=== PATIENT | male | born 1950 | race Caucasian/White ===

== ENCOUNTER 2016-11-29 16:29 | Emergency (ER) | payer MEDICARE ==
[~2016-11-29 16:29] MED LIST: GLIM4TAB PO; GLUC1000 PO; INVO300T PO; MAGN500C PO; METF500T PO; SMZ-800T PO
--- NOTE | 2016-11-29 17:14 | REP ---
Clinical: Shortness of breath . Comparison: 11/16/2016 . Technique: PA and lateral. Findings: The mediastinum and cardiac silhouette are normal. The lung hobbs are clear and without acute consolidation, effusion, or pneumothorax. The skeletal structures are intact and normal. Impression: 1. No acute cardiopulmonary process. Signed by Lazarus Orosco MD 11/29/2016 05:06 P
[2016-11-29 17:42] LABS: BASO % 0.6 % (0.0-1.0); EOS # 0.1 K/mm3 (0.0-0.50); EOS % 2.2 % (0.0-3.0); LARGE UNSTAINED CELL # 0.1 K/mm3 (0.0-0.4); LARGE UNSTAINED CELL % 1.3 % (0.0-4.0); LYMPH # 0.8 K/mm3 (1.5-4.5); LYMPH % 15.7 % (24.0-44.0); MEAN CORPUSCULAR HEMOGLOBIN 35.4 pg (27.0-33.0); MEAN CORPUSCULAR HGB CONC 33.7 g/dl (32.0-36.5); MEAN CORPUSCULAR VOLUME 104.9 fl (80.0-96.0); MONO # 0.3 K/mm3 (0.0-0.8); MONO % 4.9 % (0.0-5.0); NEUTROPHILS # 3.8 K/mm3 (1.8-7.7); NEUTROPHILS % 75.3 % (36.0-66.0); PLATELET COUNT, AUTOMATED 150 k/mm3 (150-450); RED CELL DISTRIBUTION WIDTH 12.7 % (11.5-14.5)
[2016-11-29 18:00] LABS: ALBUMIN 3.3 GM/DL (3.2-5.2); ALBUMIN/GLOBULIN RATIO 0.87 (1.00-1.93); ALKALINE PHOSPHATASE 151 U/L (45-117); ALT/SGPT 37 U/L (12-78); ANION GAP 10 MEQ/L (8-16); AST/SGOT 46 U/L (15-37); BILIRUBIN,DIRECT 1.1 MG/DL (0.0-0.2); BILIRUBIN,TOTAL 1.6 MG/DL (0.2-1.0); BLOOD UREA NITROGEN 4 MG/DL (7-18); CALCIUM LEVEL 8.8 MG/DL (8.8-10.2); CARBON DIOXIDE LEVEL 27 MEQ/L (21-32); CHLORIDE LEVEL 104 MEQ/L (98-107); CREATININE FOR GFR 0.89 MG/DL (0.70-1.30); GLOMERULAR FILTRATION RATE > 60.0 (>49); GLUCOSE, FASTING 157 MG/DL (80-110); POTASSIUM SERUM 4.1 MEQ/L (3.5-5.1); SODIUM LEVEL 141 MEQ/L (136-145); TOTAL PROTEIN 7.1 GM/DL (6.4-8.2)
[2016-11-29] MEDS ORDERED: ACETAMINOPHEN 325 MG TAB As Ordered ONE (18:25)
[2016-11-29] MEDS ORDERED: ONDANSETRON 4MG/2ML VIAL (J2405) As Ordered ONE (19:08)
[2016-11-29] MEDS ORDERED: GASTROGRAFIN SOLUTION 30ML (Q9963) As Ordered ONE (19:08)
[2016-11-29] MEDS ORDERED: ISOVUE-370 76% 100ML VIAL (Q9967) As Ordered ONE (20:18)
--- NOTE | 2016-11-29 21:18 | REP ---
Clinical: Periumbilical pain. Technique: Axial contrast enhanced images from the lung bases to the pubic symphysis using oral and 100 ml Isovue 370 intravenous contrast material with coronal and sagittal re-formations. Comparison: None. Findings: 3.7 cm fat containing periumbilical hernia is identified and possibly related to patient's symptoms. Fatty infiltration to the liver is appreciated without focal hepatic lesion. Splenomegaly cannot be excluded. Gallbladder demonstrates cholelithiasis without CT evidence for acute cholecystitis. The pancreas demonstrates 18 mm simple appearing cyst in the distal body/tail region. Bilateral adrenal glands and kidneys are relatively normal. Mild symmetric chronic perinephric stranding is suggested without hydroureteronephrosis or nephrolithiasis. The enteric system demonstrates diverticulosis without CT evidence for acute diverticulitis and no evidence for bowel obstruction or acute inflammatory process. Normal terminal ileum and appendix identified in the right lower quadrant. Pelvis demonstrates bladder wall thickening and mildly prominent prostate gland. No pelvic fluid/ascites. No adenopathy. No free air. Mild atherosclerotic changes of the aorta and branch vessels without aneurysm or dissection. Musculoskeletal structures demonstrate age-related degenerative changes without focal osseous abnormality. Lung bases clear. Visualized heart and pericardium normal. Impression: 1. 3.7 cm fat containing periumbilical hernia with mild stranding possibly related to patient's symptoms. 2. Fatty infiltration to the liver with splenomegaly and possible cirrhosis. 3. Cholelithiasis without CT evidence for acute cholecystitis. 4. 1.8 cm simple appearing pancreatic cyst likely chronic and benign. Signed by Lazarus Orosco MD 11/29/2016 09:09 P
[2016-11-30] MEDS ORDERED: ACETAMINOPHEN 325 MG TAB As Ordered ONE (00:10)
[2016-11-30] MEDS ORDERED: KETOROLAC 30 MG/ML VIAL (J1885) As Ordered ONE (00:10)
--- NOTE | 2016-11-30 00:59 | EDDOCDS ---
Physician Documentation [facility] Name: Romie Buchanan Age: 66 yrs Sex: Male : 1950 Arrival Date: 11/29/2016 Time: 16:29 Bed 12 Private MD: Disposition: 11/30/16 00:26 Discharged to Home/Self Care. Impression: Abdominal and pelvic pain - resolved. - Condition is Stable. - Discharge Instructions: Abdominal Pain, Adult. - Medication Reconciliation, Local Pharmacy Hours form. - Follow up: Private Physician; When: 10 - 14 days; Reason: Continuance of care. - Problem is an acute exacerbation. - Symptoms have improved. - Notes: YOUR BLOOD WORK AND CT SCAN DID NOT SHOW ANY REASON FOR YOUR ABDOMINAL/CHEST PAIN. FOLLOW UP WITH YOUR PRIMARY CARE DOCTOR IN [place]. Historical: - Allergies: PENICILLINS; - Home Meds: 1. Invokana 300 mg oral tab 1 tab once daily multiple unopened sample bottles 2. Metformin Oral Unknown 2 times per day dose not know dosage, is not with his medications, states these are his meds from [facility]. 3. magnesium 500mg pt unsure if he take this medication 4. Unknown - PMHx: Diabetes - NIDDM: controlled; - PSHx: unknown; - Social history: Smoking status: Patient states former smoker of tobacco. No barriers to communication noted, The patient speaks fluent Czech. - Family history: Not pertinent. - : The pt / caregiver states he / she is not on anticoagulants. Home medication list is obtained from the patient, pt's pharmacy is the [facility] in [facility]. - Exposure Risk Screening:: None identified. Vital Signs: 11/29 16:42 Resp 18; Weight 99.79 kg / 220 lbs; Height 6 ft. 1 in. (185.42 cm); Pain 0/10; ms18 17:18 BP 139 / 85; Pulse 108; Resp 16; Temp 97.3; jmk 18:29 BP 160 / 91; Pulse 99; Resp 18; Pulse Ox 99% on R/A; jmk 19:27 BP 156 / 79 (auto/); kas2 19:29 Pulse Ox 100% ; kas2 19:54 BP 131 / 75 (auto/); kas2 19:54 Pulse 88 MON; Pulse Ox 100% ; kas2 20:24 BP 140 / 80 (auto/); kas2 20:24 Pulse 86 MON; Pulse Ox 99% ; kas2 20:55 BP 166 / 90 (auto/); kas2 20:55 Pulse Ox 98% ; kas2 20:59 Resp 18; Temp 97.6(O); Pain 0/10; kas2 21:10 BP 147 / 90 (auto/); kas2 21:10 Pulse 90 MON; Pulse Ox 99% ; kas2 21:25 BP 120 / 71 (auto/); kas2 21:25 Pulse 90 MON; Pulse Ox 98% ; kas2 21:40 BP 129 / 79 (auto/); kas2 21:40 Pulse 80 MON; Pulse Ox 98% ; kas2 21:55 BP 112 / 68 (auto/); kas2 21:55 Pulse 90 MON; Pulse Ox 96% ; kas2 22:10 BP 122 / 73 (auto/); kas2 22:10 Pulse 84 MON; Pulse Ox 96% ; kas2 22:25 BP 138 / 93 (auto/); kas2 22:25 Pulse 100 MON; Pulse Ox 100% ; kas2 22:40 BP 134 / 87 (auto/); kas2 22:40 Pulse 90 MON; Pulse Ox 98% ; kas2 22:55 BP 122 / 76 (auto/); kas2 22:55 Pulse 88 MON; Pulse Ox 99% ; kas2 23:11 BP 158 / 88 (auto/); kas2 23:11 Pulse 124 MON; kas2 23:25 BP 125 / 80 (auto/); kas2 23:25 Pulse 88 MON; Pulse Ox 97% ; kas2 23:40 BP 132 / 83 (auto/); kas2 23:40 Pulse 88 MON; Pulse Ox 97% ; kas2 23:55 BP 144 / 88 (auto/); kas2 23:55 Pulse 84 MON; Pulse Ox 99% ; kas2 11/30 00:10 BP 150 / 84 (auto/); kas2 00:10 Pulse 94 MON; Pulse Ox 98% ; kas2 00:35 Temp 96.4(O); jmv 00:40 BP 148 / 78; Pulse 87; Resp 18; Temp 97.8(O); Pulse Ox 99% on R/A; Pain 0/10; kas2 11/29 16:42 Body Mass Index 29.03 (99.79 kg, 185.42 cm) ms18 MDM: 11/29 16:40 IV Saline Lock ordered. br1 16:41 CBC with Diff Ordered. EDMS 16:41 BMP Ordered. EDMS 16:41 Liver Profile Ordered. EDMS 16:41 Lipase Ordered. EDMS 16:41 Troponin Ordered. EDMS 16:41 ECG WITH READING ER PHYS+CARDIAG ordered. EDMS 16:42 Chest, 2 View (pa\E\lat) Ordered. EDMS 18:24 Acetaminophen Tablet 650 mg PO once ordered. jmk 18:51 CBC with Diff Reviewed. br1 18:51 BMP Reviewed. br1 18:51 Liver Profile Reviewed. br1 18:51 Lipase Reviewed. br1 18:51 Troponin Reviewed. br1 18:51 Chest, 2 View (pa\E\lat) Reviewed. br1 18:53 Repeat EKG (put time details section) ordered. br1 18:53 Redraw CIP &Troponin (put time in details section) ordered. br1 18:53 Ondansetron 4 mg IVP once ordered. br1 18:53 CT ABD & PELVIS: IV and Oral Contrast Ordered. EDMS 18:53 NS 0.9% 1000 ml IV at 150 mL/hr continuous ordered. br1 19:00 Financial registration complete. zo 19:08 Redraw CIP &Troponin (put time in details section) complete. tmm1 19:08 Repeat EKG (put time details section) complete. tmm1 19:09 CARDIAC MARKER PANEL Ordered. EDMS 19:10 ECG WITH READING ER PHYS ordered. EDMS 19:26 [facility] Payment Agreement was scanned into [employer] and attached to record. zo 19:29 Diatrizoate Meglumine & Sodium Liquid 10 ml PO once; mix in 290cc of water - administer kc3 at 1945 ordered. 19:29 Diatrizoate Meglumine & Sodium Liquid 10 ml PO once; mix in 290cc of water - administer kc3 at 1945 ordered. 23:58 CARDIAC MARKER PANEL Reviewed. mm11 23:58 CT ABD & PELVIS: IV and Oral Contrast Reviewed. mm11 11/30 00:08 Acetaminophen Tablet 650 mg PO once ordered. mm11 00:08 ketorolac 30 mg IVP once ordered. mm11 Administered Medications: 11/29 18:35 Drug: Acetaminophen 650 mg [acetaminophen 325 mg tablet (2 tabs)] Route: PO; jmk 19:15 Drug: Diatrizoate Meglumine & Sodium 10 ml [diatrizoate meglumine and diat.sodium 66 kc3 %-10 % oral solution (10 mL)] Route: PO; 19:28 Drug: Ondansetron 4 mg [ondansetron HCl 2 mg/mL intravenous solution (2 mL)] Route: kc3 IVP; Site: left antecubital; 19:28 Drug: NS 0.9% 1000 ml [sodium chloride 0.9 % intravenous solution] Route: IV; Rate: 150 kc3 mL/hr; Site: left antecubital; 11/30 00:42 Follow up: IV Status: Completed infusion; IV Intake: 1000ml kas2 11/29 20:19 Drug: Diatrizoate Meglumine & Sodium 10 ml [diatrizoate meglumine and diat.sodium 66 kas2 %-10 % oral solution (10 mL)] Route: PO; 11/30 00:15 Drug: Acetaminophen 650 mg [acetaminophen 325 mg tablet (2 tabs)] Route: PO; sls1 00:15 Drug: ketorolac 30 mg [ketorolac 30 mg/mL (1 mL) injection solution (1 mL)] Route: IVP; sls1 Site: left antecubital; Signatures: Dispatcher [employer] EDMarcus Cheney,[place] RN Geraldine Wong Matthew, DO DO mm11 Darion Contreras MD MD br1 McLear, [place], COTTON PRESSER COTTON PRESSER tmm1 Lori Phillips RN RN [id number] Kelley De La Cruz RN RN kc3 Flora Phillips RN RN kas2 Kasie Kathleen RN sls1 The chart was reviewed and I authenticate all verbal orders and agree with the evaluation and treatment provided.Attachments: 11/29 19:26 [facility] Payment Agreement zo [id number]
--- NOTE | 2016-11-30 00:59 | EDDOCDS ---
Nurse's Notes [facility] Name: Romie Buchanan Age: 66 yrs Sex: Male : 1950 Arrival Date: 11/29/2016 Time: 16:29 Bed 12 Private MD: Diagnosis: Abdominal and pelvic pain-resolved Presentation: 11/29 16:34 Presenting complaint: EMS states: that pt is c/o headache and nausea. Pt was seen here ms18 last week for the same. Adult Sepsis Screening: The patient does not have new or worsening altered mentation. Patient's respiratory rate is less than 22. Systolic blood pressure is greater than 100. Patient has a qSOFA score of 0- Negative Sepsis Screen. Suicide/Homicide risk assessment- the patient denies having any suicidal and/or homicidal ideations and does not present with any other emotional, behavioral or mental health complaints. Status: Patient is not a director of rehabilitative services or dependent. Transition of care: patient was not received from another setting of care. Care prior to arrival: Glucose check. 187. 16:34 Acuity: MARCELINO Level 3 ms18 16:34 Method Of Arrival: Ambulance ms18 Triage Assessment: 16:40 General: Appears in no apparent distress, comfortable, Behavior is appropriate for age, ms18 cooperative. Pain: Denies pain. Location: head. HIV screening NA for this visit Offered previously. Neurological: Level of Consciousness is awake, alert, obeys commands, Oriented to person, place, time. Respiratory: No deficits noted. Derm: Skin is pink, warm & dry. Historical: - Allergies: PENICILLINS; - Home Meds: 1. Invokana 300 mg oral tab 1 tab once daily multiple unopened sample bottles 2. Metformin Oral Unknown 2 times per day dose not know dosage, is not with his medications, states these are his meds from [facility]. 3. magnesium 500mg pt unsure if he take this medication 4. Unknown - PMHx: Diabetes - NIDDM: controlled; - PSHx: unknown; - Social history: Smoking status: Patient states former smoker of tobacco. No barriers to communication noted, The patient speaks fluent Bangladeshi. - Family history: Not pertinent. - : The pt / caregiver states he / she is not on anticoagulants. Home medication list is obtained from the patient, pt's pharmacy is the [facility] in [facility]. - Exposure Risk Screening:: None identified. Screenin:21 Screening information is obtained from the patient. Fall risk: No risks identified. donnak Assistance ADL's: requires no assistance with activities of daily living. Abuse/DV Screen: The patient / caregiver reports he/she is: not in a situation that causes fear, pain or injury. Nutritional screening: No deficits noted. Advance Directives: Currently, there is no health care proxy. There is no active DNR order. There is no living will. There is no Power of Accounting Manager Cpa. Advance directive information has not previously been placed in an [facility] medical record. home support is adequate. Assessment: 17:18 General: Appears skin warm and dry color satisfactory. Moist pink oral mucosa. ODD jmk affect/ poor historian. chest CTA. No resp distress. abd unremarkable. Pt is alert and oriented x 3. described pain about forehead. Is neurologically intact. Neurological: Level of Consciousness is awake, alert, Oriented to person, place, time, Electronic Assembler Group Leader are equal bilaterally. Respiratory: No deficits noted. Airway is patent Respiratory effort is even, unlabored, Respiratory pattern is regular. GI: Abdomen is flat, non- distended Bowel sounds present X 4 quads. 18:29 General: Appears overall presentation unchanged. medicated for headache as per order.. jmk 19:30 General: Verbal report given by Kelley De La Cruz RN. Assumed care of patient at this time.. kas2 19:45 General: Appears in no apparent distress, comfortable, well nourished, well groomed, kas2 Behavior is appropriate for age, cooperative. Pain: Denies pain. Neurological: Level of Consciousness is awake, alert, Oriented to person, place, time, Electronic Assembler Group Leader are equal bilaterally Pupils are PERRLA. Cardiovascular: Capillary refill < 3 seconds Heart tones S1 S2 present Rhythm is sinus rhythm No ectopy. Respiratory: Airway is patent Respiratory effort is even, unlabored, Respiratory pattern is regular, symmetrical, Breath sounds are clear bilaterally. GI: Abdomen is flat, non- distended Bowel sounds present X 4 quads. Derm: Skin is intact, is healthy with good turgor, Skin is dry, Skin is pink, warm & dry. Skin temperature is warm. 20:45 General: Patient gone to CT scan via stretcher.. kas2 20:58 General: Patient back from CT scan via stretcher with RN. Resettled patient in bed. kas2 Denies pain or discomfort at this time. Appears comfortable. No apparent distress. Call dai within reach. Will continue to monitor.. 21:53 General: Appears in no apparent distress, comfortable, well nourished, well groomed, kas2 Behavior is appropriate for age, cooperative. Pain: Denies pain. Neurological: Level of Consciousness is awake, alert, Oriented to person, place, time. Respiratory: Airway is patent Respiratory effort is even, unlabored, Respiratory pattern is regular, symmetrical. Derm: Skin is intact, is healthy with good turgor, Skin is dry, Skin is pink, warm & dry. Skin temperature is warm. 23:06 General: Patient laying in bed watching TV. Appears comfortable. No apparent distress kas2 noted. Denies pain or discomfort at this time. Call dai within reach. Will continue to monitor.. 11/30 00:17 General: Patient continues to watch TV at this time. No apparent distress noted. Denies kas2 pain or discomfort at this time. Call dai within reach. Will continue to monitor.. Vital Signs: 11/29 16:42 Resp 18; Weight 99.79 kg; Height 6 ft. 1 in. (185.42 cm); Pain 0/10; ms18 17:18 BP 139 / 85; Pulse 108; Resp 16; Temp 97.3; jmk 18:29 BP 160 / 91; Pulse 99; Resp 18; Pulse Ox 99% on R/A; jmk 19:27 BP 156 / 79 (auto/); kas2 19:29 Pulse Ox 100% ; kas2 19:54 BP 131 / 75 (auto/); kas2 19:54 Pulse 88 MON; Pulse Ox 100% ; kas2 20:24 BP 140 / 80 (auto/); kas2 20:24 Pulse 86 MON; Pulse Ox 99% ; kas2 20:55 BP 166 / 90 (auto/); kas2 20:55 Pulse Ox 98% ; kas2 20:59 Resp 18; Temp 97.6(O); Pain 0/10; kas2 21:10 BP 147 / 90 (auto/); kas2 21:10 Pulse 90 MON; Pulse Ox 99% ; kas2 21:25 BP 120 / 71 (auto/); kas2 21:25 Pulse 90 MON; Pulse Ox 98% ; kas2 21:40 BP 129 / 79 (auto/); kas2 21:40 Pulse 80 MON; Pulse Ox 98% ; kas2 21:55 BP 112 / 68 (auto/); kas2 21:55 Pulse 90 MON; Pulse Ox 96% ; kas2 22:10 BP 122 / 73 (auto/); kas2 22:10 Pulse 84 MON; Pulse Ox 96% ; kas2 22:25 BP 138 / 93 (auto/); kas2 22:25 Pulse 100 MON; Pulse Ox 100% ; kas2 22:40 BP 134 / 87 (auto/); kas2 22:40 Pulse 90 MON; Pulse Ox 98% ; kas2 22:55 BP 122 / 76 (auto/); kas2 22:55 Pulse 88 MON; Pulse Ox 99% ; kas2 23:11 BP 158 / 88 (auto/); kas2 23:11 Pulse 124 MON; kas2 23:25 BP 125 / 80 (auto/); kas2 23:25 Pulse 88 MON; Pulse Ox 97% ; kas2 23:40 BP 132 / 83 (auto/); kas2 23:40 Pulse 88 MON; Pulse Ox 97% ; kas2 23:55 BP 144 / 88 (auto/); kas2 23:55 Pulse 84 MON; Pulse Ox 99% ; kas2 01 00:10 BP 150 / 84 (auto/); kas2 00:10 Pulse 94 MON; Pulse Ox 98% ; kas2 00:35 Temp 96.4(O); jmv 00:40 BP 148 / 78; Pulse 87; Resp 18; Temp 97.8(O); Pulse Ox 99% on R/A; Pain 0/10; kas2 11/29 16:42 Body Mass Index 29.03 (99.79 kg, 185.42 cm) ms18 Vitals: 11/29 16:40 Log In Time N/A - ambulance arrival. ms18 ED Course: 16:30 Patient visited by Yumiko Ureña, Block Out Machine Operator. deg 16:30 Anayeli Marinelli, [place] is Primary Nurse. deg 16:30 Patient moved to Waiting deg 16:30 Patient moved to I deg 16:32 Darion Contreras MD is Attending Physician. br1 16:34 Patient visited by Lori Phillips RN. ms18 16:36 Triage Initiated ms18 16:38 Patient visited by Darion Contreras MD. br1 17:18 Troponin Sent. jmk 17:18 Lipase Sent. jmk 17:18 Liver Profile Sent. jmk 17:18 BMP Sent. jmk 17:18 CBC with Diff Sent. jmk 17:21 Patient visited by Ginna Peterson PCA. rs6 17:21 EKG done. (by ED staff). Reviewed by Darion Contreras MD. rs6 17:21 Inserted saline lock: 20 gauge in left. jmk 17:43 Chest, 2 View (pa\E\lat) Returned. EDMS 18:00 Pt greeted and oriented to ED. Patient advised of names of staff involved in care, rs6 location of call dai, wait times and NPO status. Patient has correct armband on for positive identification. Placed in gown. Bed in low position. Call light in reach. Side rails up X 1. Cardiac monitoring not applicable on this patient. 18:00 Assisted with urinal. rs6 18:01 Patient visited by Ginna Peterson PCA. rs6 18:30 Patient visited by Marcus Klein,[place]. jmk 19:26 [facility] Payment Agreement was scanned into [employer] and attached to record. zo 19:27 Kelley De La Cruz RN is Primary Nurse. kc3 19:27 Flora Phillips RN is Primary Nurse. kc3 19:27 Patient moved to 12 kc3 19:28 Patient visited by Kelley De La Cruz,[place]. kc3 19:29 Attending Physician role handed off by Darion Contreras MD mm11 19:29 Ascencion Thompson DO is Attending Physician. mm11 19:31 Patient visited by Flora Phillips RN. kas2 20:17 Patient visited by Flora Phillips RN. kas2 20:28 Primary Nurse role handed off by Kelley De La Cruz,[place] ar3 20:28 Primary Nurse role handed off by Anayeli Marinelli RN ar3 20:59 Patient visited by Flora Phillips RN. kas2 21:41 Patient visited by Flora Phillips RN. kas2 21:53 Patient visited by Flora Phillips RN. kas2 21:59 CT ABD & PELVIS: IV and Oral Contrast Returned. EDMS 22:25 Patient visited by Flora Phillips RN. kas2 22:31 EKG done. (by ED staff). Reviewed by Ascencion Thompson DO. jmv 22:32 Patient visited by Case Gaffney PCA. jmv 22:37 CARDIAC MARKER PANEL Sent. jmv 23:08 Patient visited by Flora Phillips RN. kas2 23:14 Patient visited by Dede Brown. cmb 23:14 Assisted with urinal. cmb 23:47 Patient visited by Flora Phillips RN. kas2 11/30 00:15 Patient visited by Kasie Kathleen RN. sls1 00:19 Patient visited by Flora Phillips RN. kas2 00:36 Patient visited by Case Gaffney PCA. jmv 00:39 Patient visited by Flora Phillips RN. kas2 00:41 Patient visited by Flora Phillips RN. kas2 00:41 The patient / caregiver is instructed regarding the plan of care and ED course. kas2 00:41 Discontinued IV bleeding controlled, pressure dressing applied, No redness/swelling at [facility] site. No procedures done that require assistance. Administered Medications: 11/29 18:35 Drug: Acetaminophen 650 mg [acetaminophen 325 mg tablet (2 tabs)] Route: PO; [facility] 19:15 Drug: Diatrizoate Meglumine & Sodium 10 ml [diatrizoate meglumine and diat.sodium 66 kc3 %-10 % oral solution (10 mL)] Route: PO; 19:28 Drug: Ondansetron 4 mg [ondansetron HCl 2 mg/mL intravenous solution (2 mL)] Route: kc3 IVP; Site: left antecubital; 19:28 Drug: NS 0.9% 1000 ml [sodium chloride 0.9 % intravenous solution] Route: IV; Rate: 150 kc3 mL/hr; Site: left antecubital; 11/30 00:42 Follow up: IV Status: Completed infusion; IV Intake: 1000ml [facility] 11/29 20:19 Drug: Diatrizoate Meglumine & Sodium 10 ml [diatrizoate meglumine and diat.sodium 66 kas2 %-10 % oral solution (10 mL)] Route: PO; 11/30 00:15 Drug: Acetaminophen 650 mg [acetaminophen 325 mg tablet (2 tabs)] Route: PO; sls1 00:15 Drug: ketorolac 30 mg [ketorolac 30 mg/mL (1 mL) injection solution (1 mL)] Route: IVP; sls1 Site: left antecubital; Intake: 00:42 IV: 1000.00ml; Total: 1000.00ml. kas2 Output: 11/29 23:14 Urine: 250.00ml (Voided); Total: 250.00ml. cmb Order Results: Lab Order: CBC with Diff; SPEC'M 11/29/16 17:14 Test: WHITE BLOOD COUNT; Value: 5.0; Range: 4.0-10.0; Units: K/mm3; Status: F Test: RED BLOOD COUNT; Value: 4.03; Range: 4.30-6.10; Abnormal: Below low normal; Units: M/mm3; Status: F Test: HEMOGLOBIN; Value: 14.3; Range: 14.0-18.0; Units: g/dl; Status: F Test: HEMATOCRIT; Value: 42.3; Range: 42.0-52.0; Units: %; Status: F Test: MEAN CORPUSCULAR VOLUME; Value: 104.9; Range: 80.0-96.0; Abnormal: Above high normal; Units: fl; Status: F Test: MEAN CORPUSCULAR HEMOGLOBIN; Value: 35.4; Range: 27.0-33.0; Abnormal: Above high normal; Units: pg; Status: F Test: MEAN CORPUSCULAR HGB CONC; Value: 33.7; Range: 32.0-36.5; Units: g/dl; Status: F Test: RED CELL DISTRIBUTION WIDTH; Value: 12.7; Range: 11.5-14.5; Units: %; Status: F Test: PLATELET COUNT, AUTOMATED; Value: 150; Range: 150-450; Units: k/mm3; Status: F Test: NEUTROPHILS %; Value: 75.3; Range: 36.0-66.0; Abnormal: Above high normal; Units: %; Status: F Test: LYMPH %; Value: 15.7; Range: 24.0-44.0; Abnormal: Below low normal; Units: %; Status: F Test: MONO %; Value: 4.9; Range: 0.0-5.0; Units: %; Status: F Test: EOS %; Value: 2.2; Range: 0.0-3.0; Units: %; Status: F Test: BASO %; Value: 0.6; Range: 0.0-1.0; Units: %; Status: F Test: LARGE UNSTAINED CELL %; Value: 1.3; Range: 0.0-4.0; Units: %; Status: F Test: NEUTROPHILS #; Value: 3.8; Range: 1.8-7.7; Units: K/mm3; Status: F Test: LYMPH #; Value: 0.8; Range: 1.5-4.5; Abnormal: Below low normal; Units: K/mm3; Status: F Test: MONO #; Value: 0.3; Range: 0.0-0.8; Units: K/mm3; Status: F Test: EOS #; Value: 0.1; Range: 0.0-0.50; Units: K/mm3; Status: F Test: BASO #; Value: 0.0; Range: 0.0-0.2; Units: K/mm3; Status: F Test: LARGE UNSTAINED CELL #; Value: 0.1; Range: 0.0-0.4; Units: K/mm3; Status: F Lab Order: [facility]; SPEC'M 11/29/16 17:14 Test: GLUCOSE, FASTING; Value: 157; Range: 80-110; Abnormal: Above high normal; Units: MG/DL; Status: F Test: BLOOD UREA NITROGEN; Value: 4; Range: 7-18; Abnormal: Below low normal; Units: MG/DL; Status: F Test: CREATININE FOR GFR; Value: 0.89; Range: 0.70-1.30; Units: MG/DL; Status: F Test: GLOMERULAR FILTRATION RATE; Value: > 60.0; Range: >49; Status: F Test: SODIUM LEVEL; Value: 141; Range: 136-145; Units: MEQ/L; Status: F Test: POTASSIUM SERUM; Value: 4.1; Range: 3.5-5.1; Units: MEQ/L; Status: F Test: CHLORIDE LEVEL; Value: 104; Range: 98-107; Units: MEQ/L; Status: F Test: CARBON DIOXIDE LEVEL; Value: 27; Range: 21-32; Units: MEQ/L; Status: F Test: ANION GAP; Value: 10; Range: 8-16; Units: MEQ/L; Status: F Test: CALCIUM LEVEL; Value: 8.8; Range: 8.8-10.2; Units: MG/DL; Status: F Test Note: ; Units are mL/min/1.73 m2 Chronic Kidney Disease Staging per NKF: Stage I & II GFR >=60 Normal to Mildly Decreased Stage III GFR 30-59 Moderately Decreased Stage IV GFR 15-29 Severely Decreased Stage V GFR <15 Very Little GFR Left ESRD GFR <15 on CRIMINAL INVESTIGATIVE AGENT Lab Order: Liver Profile; SPEC'11/29/16 17:14 Test: AST/SGOT; Value: 46; Range: 15-37; Abnormal: Above high normal; Units: U/L; Status: F Test: ALT/SGPT; Value: 37; Range: 12-78; Units: U/L; Status: F Test: ALKALINE PHOSPHATASE; Value: 151; Range: 45-117; Abnormal: Above high normal; Units: U/L; Status: F Test: BILIRUBIN,TOTAL; Value: 1.6; Range: 0.2-1.0; Abnormal: Above high normal; Units: MG/DL; Status: F Test: BILIRUBIN,DIRECT; Value: 1.1; Range: 0.0-0.2; Abnormal: Above high normal; Units: MG/DL; Status: F Test: TOTAL PROTEIN; Value: 7.1; Range: 6.4-8.2; Units: GM/DL; Status: F Test: ALBUMIN; Value: 3.3; Range: 3.2-5.2; Units: GM/DL; Status: F Test: ALBUMIN/GLOBULIN RATIO; Value: 0.87; Range: 1.00-1.93; Abnormal: Below low normal; Status: F Lab Order: Lipase; SPEC'11/29/16 17:14 Test: LIPASE; Value: 144; Range: 73-393; Units: U/L; Status: F Lab Order: Troponin; SPEC11/29/16 17:14 Test: TROPONIN I; Value: < 0.02; Range: < 0.10; Units: NG/ML; Status: F Test Note: ; Troponin I Reference Interval for Scary Mommy LOCI: 99th Percentile= 0.00-0.045 ng/ml Risk Stratification: <= 0.10 ng/ml Decreased Risk for Adverse Clinical Events. 0.10-1.50 ng/ml Increased Risk for Adverse Clinical Events. Evaluation of additional criterion and/or repeat testing in 2-6 hours is suggested to rule out myocardial damage. >= 1.50 ng/ml Indicative of Myocardial Injury. Lab Order: CARDIAC MARKER PANEL; SPEC'M 11/29/16 22:36 Test: CPK CREATINE PHOSPHOKINASE; Value: 50; Range: 39-308; Units: U/L; Status: F Test: CK-MB VALUE MASS; Value: 2.0; Range: 0.0-3.6; Units: NG/ML; Status: F Test: MB/CK RELATIVE INDEX; Value: 4.00; Range: < OR =4; Status: F Test: TROPONIN I; Value: < 0.02; Range: < 0.10; Units: NG/ML; Status: F Test Note: ; DIAGNOSIS CRITERIA MMB ng/ml Relative Index (RI) NON-AMI < or = 5 N/A WISE ZONE > 5 < or = 4 AMI > 5 > 4 Radiology Order: Chest, 2 View (pa\E\lat) Test: Chest, 2 View (pa\E\lat) REASON FOR EXAMINATION: Shortness of Breath; Clinical: Shortness of breath .; ; Comparison: 11/16/2016 .; ; Technique: PA and lateral.; ; Findings:; The mediastinum and cardiac silhouette are normal. The lung hobbs are clear and; without acute consolidation, effusion, or pneumothorax. The skeletal structures; are intact and normal.; ; Impression:; 1. No acute cardiopulmonary process.; ; ; Signed by; Lazarus Orosco MD 11/29/2016 05:06 P; Radiology Order: CT ABD & PELVIS: IV and Oral Contrast Test: CT ABD & PELVIS: IV and Oral Contrast REASON FOR EXAMINATION: Abdomen Pain; Clinical: Periumbilical pain.; ; Technique: Axial contrast enhanced images from the lung bases to the pubic; symphysis using oral and 100 ml Isovue 370 intravenous contrast material with; coronal and sagittal re-formations.; ; Comparison: None.; ; Findings:; 3.7 cm fat containing periumbilical hernia is identified and possibly related to; patient's symptoms.; ; Fatty infiltration to the liver is appreciated without focal hepatic lesion.; Splenomegaly cannot be excluded. Gallbladder demonstrates cholelithiasis without; CT evidence for acute cholecystitis. The pancreas demonstrates 18 mm simple; appearing cyst in the distal body/tail region. Bilateral adrenal glands and; kidneys are relatively normal. Mild symmetric chronic perinephric stranding is; suggested without hydroureteronephrosis or nephrolithiasis. The enteric system; demonstrates diverticulosis without CT evidence for acute diverticulitis and no; evidence for bowel obstruction or acute inflammatory process. Normal terminal; ileum and appendix identified in the right lower quadrant. Pelvis demonstrates; bladder wall thickening and mildly prominent prostate gland. No pelvic; fluid/ascites. No adenopathy. No free air. Mild atherosclerotic changes of the; aorta and branch vessels without aneurysm or dissection. Musculoskeletal; structures demonstrate age-related degenerative changes without focal osseous; abnormality. Lung bases clear. Visualized heart and pericardium normal.; ; Impression:; 1. 3.7 cm fat containing periumbilical hernia with mild stranding possibly; related to patient's symptoms.; 2. Fatty infiltration to the liver with splenomegaly and possible cirrhosis.; 3. Cholelithiasis without CT evidence for acute cholecystitis.; 4. 1.8 cm simple appearing pancreatic cyst likely chronic and benign.; ; ; Signed by; Lazarus Orosco MD 11/29/2016 09:09 P; Outcome: 11/30 00:26 Discharge ordered by Provider. mm11 00:41 Discharge Assessment: patient administered narcotics - no. The following High Risk kas2 Discharge criteria are identified: None. Discharged to home ambulatory. Condition: good Condition: stable Condition: improved. CT Study completed. Property :Personal belongings accompany Pt. 00:57 Patient left the ED. kas2 Signatures: Dispatcher [employer] EDMS Yumiko Ureña, Block Out Machine Operator Unit deg Marcus Klein,RN RN Geraldine Wong Matthew, DO DO mm11 Darion Contreras MD MD br1 Radha Rizo, MASH FILTER PRESS OPERATOR MASH FILTER PRESS OPERATOR ar3 Kasie Kathleen, RN RN sls1 Dede Brown Mallory,RN RN ms18 Ginna Peterson, MASH FILTER PRESS OPERATOR MASH FILTER PRESS OPERATOR rs6 Kelley De La Cruz,RN RN kc3 Flora Phillips RN RN kas2 Case Gaffney, MASH FILTER PRESS OPERATOR MASH FILTER PRESS OPERATOR jmv MTDD
--- NOTE | 2016-11-30 19:51 | ECGEPIP ---
Stationary ECG Study [facility] - ED Test Date: 2016-11-29 Pat Name: JIMI KEY Department: Room: - Gender: M Mast Maker: : 1950 Requested By: DAI Marrufo Order Number: [id number] Reading MD: Socorro Basilio Measurements Intervals [place] Rate: 95 P: 64 IN: 142 QRS: 41 QRSD: 88 T: 57 QT: 345 QTc: 435 Interpretive Statements SINUS RHYTHM LOW QRS VOLTAGE IN EXTREMITY LEADS PRWP NSTTW ABNORMALITY INCREASED RATE 11/16/16 Electronically Signed On 11-30-2016 19:51:14 EST by Socorro Basilio
--- NOTE | 2016-11-30 19:52 | ECGEPIP ---
Stationary ECG Study [facility] - ED Test Date: 2016-11-29 Pat Name: JIMI KEY Department: Room: - Gender: M Receiver Bulk System: brenden : 1950 Requested By: DAI Marrufo Order Number: [id number] Reading MD: Socorro Basilio Measurements Intervals [place] Rate: 87 P: 68 ID: 160 QRS: 11 QRSD: 85 T: 23 QT: 356 QTc: 431 Interpretive Statements SINUS RHYTHM LOW QRS VOLTAGE IN EXTREMITY LEADS NSTTW ABNORMALITY SIMILAR 11/29/16 Electronically Signed On 11-30-2016 19:52:39 EST by Socorro Basilio
--- NOTE | 2016-12-02 01:59 | EDDOCDS ---
Physician Documentation [facility] Name: Romie Buchanan Age: 66 yrs Sex: Male : 1950 Arrival Date: 11/29/2016 Time: 16:29 Bed 12 Private MD: Disposition: 11/30/16 00:26 Discharged to Home/Self Care. Impression: Abdominal and pelvic pain - resolved. - Condition is Stable. - Discharge Instructions: Abdominal Pain, Adult. - Medication Reconciliation, Local Pharmacy Hours form. - Follow up: Private Physician; When: 10 - 14 days; Reason: Continuance of care. - Problem is an acute exacerbation. - Symptoms have improved. - Notes: YOUR BLOOD WORK AND CT SCAN DID NOT SHOW ANY REASON FOR YOUR ABDOMINAL/CHEST PAIN. FOLLOW UP WITH YOUR PRIMARY CARE DOCTOR IN [place]. Historical: - Allergies: PENICILLINS; - Home Meds: 1. Invokana 300 mg oral tab 1 tab once daily multiple unopened sample bottles 2. Metformin Oral Unknown 2 times per day dose not know dosage, is not with his medications, states these are his meds from [facility]. 3. magnesium 500mg pt unsure if he take this medication 4. Unknown - PMHx: Diabetes - NIDDM: controlled; - PSHx: unknown; - Social history: Smoking status: Patient states former smoker of tobacco. No barriers to communication noted, The patient speaks fluent Welsh. - Family history: Not pertinent. - : The pt / caregiver states he / she is not on anticoagulants. Home medication list is obtained from the patient, pt's pharmacy is the [facility] in [facility]. - Exposure Risk Screening:: None identified. Vital Signs: 11/29 16:42 Resp 18; Weight 99.79 kg / 220 lbs; Height 6 ft. 1 in. (185.42 cm); Pain 0/10; ms18 17:18 BP 139 / 85; Pulse 108; Resp 16; Temp 97.3; jmk 18:29 BP 160 / 91; Pulse 99; Resp 18; Pulse Ox 99% on R/A; jmk 19:27 BP 156 / 79 (auto/); kas2 19:29 Pulse Ox 100% ; kas2 19:54 BP 131 / 75 (auto/); kas2 19:54 Pulse 88 MON; Pulse Ox 100% ; kas2 20:24 BP 140 / 80 (auto/); kas2 20:24 Pulse 86 MON; Pulse Ox 99% ; kas2 20:55 BP 166 / 90 (auto/); kas2 20:55 Pulse Ox 98% ; kas2 20:59 Resp 18; Temp 97.6(O); Pain 0/10; kas2 21:10 BP 147 / 90 (auto/); kas2 21:10 Pulse 90 MON; Pulse Ox 99% ; kas2 21:25 BP 120 / 71 (auto/); kas2 21:25 Pulse 90 MON; Pulse Ox 98% ; kas2 21:40 BP 129 / 79 (auto/); kas2 21:40 Pulse 80 MON; Pulse Ox 98% ; kas2 21:55 BP 112 / 68 (auto/); kas2 21:55 Pulse 90 MON; Pulse Ox 96% ; kas2 22:10 BP 122 / 73 (auto/); kas2 22:10 Pulse 84 MON; Pulse Ox 96% ; kas2 22:25 BP 138 / 93 (auto/); kas2 22:25 Pulse 100 MON; Pulse Ox 100% ; kas2 22:40 BP 134 / 87 (auto/); kas2 22:40 Pulse 90 MON; Pulse Ox 98% ; kas2 22:55 BP 122 / 76 (auto/); kas2 22:55 Pulse 88 MON; Pulse Ox 99% ; kas2 23:11 BP 158 / 88 (auto/); kas2 23:11 Pulse 124 MON; kas2 23:25 BP 125 / 80 (auto/); kas2 23:25 Pulse 88 MON; Pulse Ox 97% ; kas2 23:40 BP 132 / 83 (auto/); kas2 23:40 Pulse 88 MON; Pulse Ox 97% ; kas2 23:55 BP 144 / 88 (auto/); kas2 23:55 Pulse 84 MON; Pulse Ox 99% ; kas2 11/30 00:10 BP 150 / 84 (auto/); kas2 00:10 Pulse 94 MON; Pulse Ox 98% ; kas2 00:35 Temp 96.4(O); jmv 00:40 BP 148 / 78; Pulse 87; Resp 18; Temp 97.8(O); Pulse Ox 99% on R/A; Pain 0/10; kas2 11/29 16:42 Body Mass Index 29.03 (99.79 kg, 185.42 cm) ms18 MDM: 11/29 16:40 IV Saline Lock ordered. br1 16:41 CBC with Diff Ordered. EDMS 16:41 BMP Ordered. EDMS 16:41 Liver Profile Ordered. EDMS 16:41 Lipase Ordered. EDMS 16:41 Troponin Ordered. EDMS 16:41 ECG WITH READING ER PHYS+CARDIAG ordered. EDMS 16:42 Chest, 2 View (pa\E\lat) Ordered. EDMS 18:24 Acetaminophen Tablet 650 mg PO once ordered. jmk 18:51 CBC with Diff Reviewed. br1 18:51 BMP Reviewed. br1 18:51 Liver Profile Reviewed. br1 18:51 Lipase Reviewed. br1 18:51 Troponin Reviewed. br1 18:51 Chest, 2 View (pa\E\lat) Reviewed. br1 18:53 Repeat EKG (put time details section) ordered. br1 18:53 Redraw CIP &Troponin (put time in details section) ordered. br1 18:53 Ondansetron 4 mg IVP once ordered. br1 18:53 CT ABD & PELVIS: IV and Oral Contrast Ordered. EDMS 18:53 NS 0.9% 1000 ml IV at 150 mL/hr continuous ordered. br1 19:00 Financial registration complete. zo 19:08 Redraw CIP &Troponin (put time in details section) complete. tmm1 19:08 Repeat EKG (put time details section) complete. tmm1 19:09 CARDIAC MARKER PANEL Ordered. EDMS 19:10 ECG WITH READING ER PHYS ordered. EDMS 19:26 [place] [place] was scanned into [employer] and attached to record. zo 19:29 Diatrizoate Meglumine & Sodium Liquid 10 ml PO once; mix in 290cc of water - administer kc3 at 1945 ordered. 19:29 Diatrizoate Meglumine & Sodium Liquid 10 ml PO once; mix in 290cc of water - administer kc3 at 1945 ordered. 23:58 CARDIAC MARKER PANEL Reviewed. mm11 23:58 CT ABD & PELVIS: IV and Oral Contrast Reviewed. mm11 11/30 00:08 Acetaminophen Tablet 650 mg PO once ordered. mm11 00:08 ketorolac 30 mg IVP once ordered. mm11 03:32 T-Sheet-- Draft Copy was scanned into [employer] and attached to record. hs2 13:31 ECG/EKG was scanned into [employer] and attached to record. gb 13:31 Trend VS was scanned into [employer] and attached to record. gb Administered Medications: 11/29 18:35 Drug: Acetaminophen 650 mg [acetaminophen 325 mg tablet (2 tabs)] Route: PO; k 19:15 Drug: Diatrizoate Meglumine & Sodium 10 ml [diatrizoate meglumine and diat.sodium 66 kc3 %-10 % oral solution (10 mL)] Route: PO; 19:28 Drug: Ondansetron 4 mg [ondansetron HCl 2 mg/mL intravenous solution (2 mL)] Route: kc3 IVP; Site: left antecubital; 19:28 Drug: NS 0.9% 1000 ml [sodium chloride 0.9 % intravenous solution] Route: IV; Rate: 150 kc3 mL/hr; Site: left antecubital; 11/30 00:42 Follow up: IV Status: Completed infusion; IV Intake: 1000ml [facility] 11/29 20:19 Drug: Diatrizoate Meglumine & Sodium 10 ml [diatrizoate meglumine and diat.sodium 66 kas2 %-10 % oral solution (10 mL)] Route: PO; 11/30 00:15 Drug: Acetaminophen 650 mg [acetaminophen 325 mg tablet (2 tabs)] Route: PO; sls1 00:15 Drug: ketorolac 30 mg [ketorolac 30 mg/mL (1 mL) injection solution (1 mL)] Route: IVP; sls1 Site: left antecubital; Signatures: Dispatcher [employer] EDMS Marcus KleinRN RN Keren Walters, Reg Reg gb Geraldine Barajas Matthew, DO DO mm11 Darion Contreras MD MD br1 Caridad Martínez, SUPERVISOR SEWER SYSTEM SUPERVISOR SEWER SYSTEM tmm1 Lori Phillips RN RN ms18 Kelley De La Cruz RN RN kc3 Kellee White, Reg Reg hs2 Flora Phillips RN RN kas2 Strong, Shannon RN sls1 The chart was reviewed and I authenticate all verbal orders and agree with the evaluation and treatment provided.Attachments: 11/29 19:26 MD-[facility] Payment Agreement zo 11/30 03:32 T-Sheet-- Draft Copy hs2 13:31 ECG/EKG gb Chart Complete MTDD
--- NOTE | 2016-12-02 01:59 | EDDOCDS ---
Physician Documentation [facility] Name: Romie Buchanan Age: 66 yrs Sex: Male : 1950 Arrival Date: 11/29/2016 Time: 16:29 Bed 12 Private MD: Disposition: 11/30/16 00:26 Discharged to Home/Self Care. Impression: Abdominal and pelvic pain - resolved. - Condition is Stable. - Discharge Instructions: Abdominal Pain, Adult. - Medication Reconciliation, Local Pharmacy Hours form. - Follow up: Private Physician; When: 10 - 14 days; Reason: Continuance of care. - Problem is an acute exacerbation. - Symptoms have improved. - Notes: YOUR BLOOD WORK AND CT SCAN DID NOT SHOW ANY REASON FOR YOUR ABDOMINAL/CHEST PAIN. FOLLOW UP WITH YOUR PRIMARY CARE DOCTOR IN [place]. Historical: - Allergies: PENICILLINS; - Home Meds: 1. Invokana 300 mg oral tab 1 tab once daily multiple unopened sample bottles 2. Metformin Oral Unknown 2 times per day dose not know dosage, is not with his medications, states these are his meds from [facility]. 3. magnesium 500mg pt unsure if he take this medication 4. Unknown - PMHx: Diabetes - NIDDM: controlled; - PSHx: unknown; - Social history: Smoking status: Patient states former smoker of tobacco. No barriers to communication noted, The patient speaks fluent Polish. - Family history: Not pertinent. - : The pt / caregiver states he / she is not on anticoagulants. Home medication list is obtained from the patient, pt's pharmacy is the [facility] in [facility]. - Exposure Risk Screening:: None identified. Vital Signs: 11/29 16:42 Resp 18; Weight 99.79 kg / 220 lbs; Height 6 ft. 1 in. (185.42 cm); Pain 0/10; ms18 17:18 BP 139 / 85; Pulse 108; Resp 16; Temp 97.3; jmk 18:29 BP 160 / 91; Pulse 99; Resp 18; Pulse Ox 99% on R/A; jmk 19:27 BP 156 / 79 (auto/); kas2 19:29 Pulse Ox 100% ; kas2 19:54 BP 131 / 75 (auto/); kas2 19:54 Pulse 88 MON; Pulse Ox 100% ; kas2 20:24 BP 140 / 80 (auto/); kas2 20:24 Pulse 86 MON; Pulse Ox 99% ; kas2 20:55 BP 166 / 90 (auto/); kas2 20:55 Pulse Ox 98% ; kas2 20:59 Resp 18; Temp 97.6(O); Pain 0/10; kas2 21:10 BP 147 / 90 (auto/); kas2 21:10 Pulse 90 MON; Pulse Ox 99% ; kas2 21:25 BP 120 / 71 (auto/); kas2 21:25 Pulse 90 MON; Pulse Ox 98% ; kas2 21:40 BP 129 / 79 (auto/); kas2 21:40 Pulse 80 MON; Pulse Ox 98% ; kas2 21:55 BP 112 / 68 (auto/); kas2 21:55 Pulse 90 MON; Pulse Ox 96% ; kas2 22:10 BP 122 / 73 (auto/); kas2 22:10 Pulse 84 MON; Pulse Ox 96% ; kas2 22:25 BP 138 / 93 (auto/); kas2 22:25 Pulse 100 MON; Pulse Ox 100% ; kas2 22:40 BP 134 / 87 (auto/); kas2 22:40 Pulse 90 MON; Pulse Ox 98% ; kas2 22:55 BP 122 / 76 (auto/); kas2 22:55 Pulse 88 MON; Pulse Ox 99% ; kas2 23:11 BP 158 / 88 (auto/); kas2 23:11 Pulse 124 MON; kas2 23:25 BP 125 / 80 (auto/); kas2 23:25 Pulse 88 MON; Pulse Ox 97% ; kas2 23:40 BP 132 / 83 (auto/); kas2 23:40 Pulse 88 MON; Pulse Ox 97% ; kas2 23:55 BP 144 / 88 (auto/); kas2 23:55 Pulse 84 MON; Pulse Ox 99% ; kas2 11/30 00:10 BP 150 / 84 (auto/); kas2 00:10 Pulse 94 MON; Pulse Ox 98% ; kas2 00:35 Temp 96.4(O); jmv 00:40 BP 148 / 78; Pulse 87; Resp 18; Temp 97.8(O); Pulse Ox 99% on R/A; Pain 0/10; kas2 11/29 16:42 Body Mass Index 29.03 (99.79 kg, 185.42 cm) ms18 MDM: 11/29 16:40 IV Saline Lock ordered. br1 16:41 CBC with Diff Ordered. EDMS 16:41 BMP Ordered. EDMS 16:41 Liver Profile Ordered. EDMS 16:41 Lipase Ordered. EDMS 16:41 Troponin Ordered. EDMS 16:41 ECG WITH READING ER PHYS+CARDIAG ordered. EDMS 16:42 Chest, 2 View (pa\E\lat) Ordered. EDMS 18:24 Acetaminophen Tablet 650 mg PO once ordered. jmk 18:51 CBC with Diff Reviewed. br1 18:51 BMP Reviewed. br1 18:51 Liver Profile Reviewed. br1 18:51 Lipase Reviewed. br1 18:51 Troponin Reviewed. br1 18:51 Chest, 2 View (pa\E\lat) Reviewed. br1 18:53 Repeat EKG (put time details section) ordered. br1 18:53 Redraw CIP &Troponin (put time in details section) ordered. br1 18:53 Ondansetron 4 mg IVP once ordered. br1 18:53 CT ABD & PELVIS: IV and Oral Contrast Ordered. EDMS 18:53 NS 0.9% 1000 ml IV at 150 mL/hr continuous ordered. br1 19:00 Financial registration complete. zo 19:08 Redraw CIP &Troponin (put time in details section) complete. tmm1 19:08 Repeat EKG (put time details section) complete. tmm1 19:09 CARDIAC MARKER PANEL Ordered. EDMS 19:10 ECG WITH READING ER PHYS ordered. EDMS 19:26 [place] [place] Agreement was scanned into [employer] and attached to record. zo 19:29 Diatrizoate Meglumine & Sodium Liquid 10 ml PO once; mix in 290cc of water - administer kc3 at 1945 ordered. 19:29 Diatrizoate Meglumine & Sodium Liquid 10 ml PO once; mix in 290cc of water - administer kc3 at 1945 ordered. 23:58 CARDIAC MARKER PANEL Reviewed. mm11 23:58 CT ABD & PELVIS: IV and Oral Contrast Reviewed. mm11 11/30 00:08 Acetaminophen Tablet 650 mg PO once ordered. mm11 00:08 ketorolac 30 mg IVP once ordered. mm11 03:32 T-Sheet-- Draft Copy was scanned into [employer] and attached to record. hs2 13:31 ECG/EKG was scanned into [employer] and attached to record. gb 13:31 Trend VS was scanned into [employer] and attached to record. gb Administered Medications: 11/29 18:35 Drug: Acetaminophen 650 mg [acetaminophen 325 mg tablet (2 tabs)] Route: PO; k 19:15 Drug: Diatrizoate Meglumine & Sodium 10 ml [diatrizoate meglumine and diat.sodium 66 kc3 %-10 % oral solution (10 mL)] Route: PO; 19:28 Drug: Ondansetron 4 mg [ondansetron HCl 2 mg/mL intravenous solution (2 mL)] Route: kc3 IVP; Site: left antecubital; 19:28 Drug: NS 0.9% 1000 ml [sodium chloride 0.9 % intravenous solution] Route: IV; Rate: 150 kc3 mL/hr; Site: left antecubital; 11/30 00:42 Follow up: IV Status: Completed infusion; IV Intake: 1000ml [facility] 11/29 20:19 Drug: Diatrizoate Meglumine & Sodium 10 ml [diatrizoate meglumine and diat.sodium 66 kas2 %-10 % oral solution (10 mL)] Route: PO; 11/30 00:15 Drug: Acetaminophen 650 mg [acetaminophen 325 mg tablet (2 tabs)] Route: PO; sls1 00:15 Drug: ketorolac 30 mg [ketorolac 30 mg/mL (1 mL) injection solution (1 mL)] Route: IVP; sls1 Site: left antecubital; Signatures: Dispatcher [employer] EDMS Marcus KleinRN RN Keren Walters, Reg Reg gb Geraldine Barajas Matthew, DO DO mm11 Darion Contreras MD MD br1 Caridad Martínez, TRANSPLANTER ORCHID TRANSPLANTER ORCHID tmm1 Lori Phillips RN RN ms18 Kelley De La Cruz RN RN kc3 Kellee White, Reg Reg hs2 Flora Phillips RN RN kas2 Strong, Shannon RN sls1 The chart was reviewed and I authenticate all verbal orders and agree with the evaluation and treatment provided.Attachments: 11/29 19:26 [facility] Payment Agreement zo 11/30 03:32 T-Sheet-- Draft Copy hs2 13:31 ECG/EKG gb Chart Complete MTDD
--- NOTE | 2016-12-02 01:59 | EDDOCDS ---
Nurse's Notes [facility] Name: Jimi Buchanan Age: 66 yrs Sex: Male : 1950 Arrival Date: 11/29/2016 Time: 16:29 Bed 12 Private MD: Diagnosis: Abdominal and pelvic pain-resolved Presentation: 11/29 16:34 Presenting complaint: EMS states: that pt is c/o headache and nausea. Pt was seen here ms18 last week for the same. Adult Sepsis Screening: The patient does not have new or worsening altered mentation. Patient's respiratory rate is less than 22. Systolic blood pressure is greater than 100. Patient has a qSOFA score of 0- Negative Sepsis Screen. Suicide/Homicide risk assessment- the patient denies having any suicidal and/or homicidal ideations and does not present with any other emotional, behavioral or mental health complaints. Status: Patient is not a police service technician or dependent. Transition of care: patient was not received from another setting of care. Care prior to arrival: Glucose check. 187. 16:34 Acuity: MARCELINO Level 3 ms18 16:34 Method Of Arrival: Ambulance ms18 Triage Assessment: 16:40 General: Appears in no apparent distress, comfortable, Behavior is appropriate for age, ms18 cooperative. Pain: Denies pain. Location: head. HIV screening NA for this visit Offered previously. Neurological: Level of Consciousness is awake, alert, obeys commands, Oriented to person, place, time. Respiratory: No deficits noted. Derm: Skin is pink, warm & dry. Historical: - Allergies: PENICILLINS; - Home Meds: 1. Invokana 300 mg oral tab 1 tab once daily multiple unopened sample bottles 2. Metformin Oral Unknown 2 times per day dose not know dosage, is not with his medications, states these are his meds from [address]. 3. magnesium 500mg pt unsure if he take this medication 4. Unknown - PMHx: Diabetes - NIDDM: controlled; - PSHx: unknown; - Social history: Smoking status: Patient states former smoker of tobacco. No barriers to communication noted, The patient speaks fluent Eritrean. - Family history: Not pertinent. - : The pt / caregiver states he / she is not on anticoagulants. Home medication list is obtained from the patient, pt's pharmacy is [facility] in [facility]. - Exposure Risk Screening:: None identified. Screenin:21 Screening information is obtained from the patient. Fall risk: No risks identified. donnak Assistance ADL's: requires no assistance with activities of daily living. Abuse/DV Screen: The patient / caregiver reports he/she is: not in a situation that causes fear, pain or injury. Nutritional screening: No deficits noted. Advance Directives: Currently, there is no health care proxy. There is no active DNR order. There is no living will. There is no Power of Transfer Worker. Advance directive information has not previously been placed in an [facility] medical record. home support is adequate. Assessment: 17:18 General: Appears skin warm and dry color satisfactory. Moist pink oral mucosa. ODD jmk affect/ poor historian. chest CTA. No resp distress. abd unremarkable. Pt is alert and oriented x 3. described pain about forehead. Is neurologically intact. Neurological: Level of Consciousness is awake, alert, Oriented to person, place, time, Manager Embalmer Funeral Director are equal bilaterally. Respiratory: No deficits noted. Airway is patent Respiratory effort is even, unlabored, Respiratory pattern is regular. GI: Abdomen is flat, non- distended Bowel sounds present X 4 quads. 18:29 General: Appears overall presentation unchanged. medicated for headache as per order.. jmk 19:30 General: Verbal report given by Kelley De La Cruz RN. Assumed care of patient at this time.. kas2 19:45 General: Appears in no apparent distress, comfortable, well nourished, well groomed, kas2 Behavior is appropriate for age, cooperative. Pain: Denies pain. Neurological: Level of Consciousness is awake, alert, Oriented to person, place, time, Manager [employer]almer Funeral Director are equal bilaterally Pupils are PERRLA. Cardiovascular: Capillary refill < 3 seconds Heart tones S1 S2 present Rhythm is sinus rhythm No ectopy. Respiratory: Airway is patent Respiratory effort is even, unlabored, Respiratory pattern is regular, symmetrical, Breath sounds are clear bilaterally. GI: Abdomen is flat, non- distended Bowel sounds present X 4 quads. Derm: Skin is intact, is healthy with good turgor, Skin is dry, Skin is pink, warm & dry. Skin temperature is warm. 20:45 General: Patient gone to CT scan via stretcher.. kas2 20:58 General: Patient back from CT scan via stretcher with RN. Resettled patient in bed. kas2 Denies pain or discomfort at this time. Appears comfortable. No apparent distress. Call dai within reach. Will continue to monitor.. 21:53 General: Appears in no apparent distress, comfortable, well nourished, well groomed, kas2 Behavior is appropriate for age, cooperative. Pain: Denies pain. Neurological: Level of Consciousness is awake, alert, Oriented to person, place, time. Respiratory: Airway is patent Respiratory effort is even, unlabored, Respiratory pattern is regular, symmetrical. Derm: Skin is intact, is healthy with good turgor, Skin is dry, Skin is pink, warm & dry. Skin temperature is warm. 23:06 General: Patient laying in bed watching TV. Appears comfortable. No apparent distress kas2 noted. Denies pain or discomfort at this time. Call dai within reach. Will continue to monitor.. 11/30 00:17 General: Patient continues to watch TV at this time. No apparent distress noted. Denies kas2 pain or discomfort at this time. Call dai within reach. Will continue to monitor.. Vital Signs: 11/29 16:42 Resp 18; Weight 99.79 kg; Height 6 ft. 1 in. (185.42 cm); Pain 0/10; ms18 17:18 BP 139 / 85; Pulse 108; Resp 16; Temp 97.3; jmk 18:29 BP 160 / 91; Pulse 99; Resp 18; Pulse Ox 99% on R/A; jmk 19:27 BP 156 / 79 (auto/); kas2 19:29 Pulse Ox 100% ; kas2 19:54 BP 131 / 75 (auto/); kas2 19:54 Pulse 88 MON; Pulse Ox 100% ; kas2 20:24 BP 140 / 80 (auto/); kas2 20:24 Pulse 86 MON; Pulse Ox 99% ; kas2 20:55 BP 166 / 90 (auto/); kas2 20:55 Pulse Ox 98% ; kas2 20:59 Resp 18; Temp 97.6(O); Pain 0/10; kas2 21:10 BP 147 / 90 (auto/); kas2 21:10 Pulse 90 MON; Pulse Ox 99% ; kas2 21:25 BP 120 / 71 (auto/); kas2 21:25 Pulse 90 MON; Pulse Ox 98% ; kas2 21:40 BP 129 / 79 (auto/); kas2 21:40 Pulse 80 MON; Pulse Ox 98% ; kas2 21:55 BP 112 / 68 (auto/); kas2 21:55 Pulse 90 MON; Pulse Ox 96% ; kas2 22:10 BP 122 / 73 (auto/); kas2 22:10 Pulse 84 MON; Pulse Ox 96% ; kas2 22:25 BP 138 / 93 (auto/); kas2 22:25 Pulse 100 MON; Pulse Ox 100% ; kas2 22:40 BP 134 / 87 (auto/); kas2 22:40 Pulse 90 MON; Pulse Ox 98% ; kas2 22:55 BP 122 / 76 (auto/); kas2 22:55 Pulse 88 MON; Pulse Ox 99% ; kas2 23:11 BP 158 / 88 (auto/); kas2 23:11 Pulse 124 MON; kas2 23:25 BP 125 / 80 (auto/); kas2 23:25 Pulse 88 MON; Pulse Ox 97% ; kas2 23:40 BP 132 / 83 (auto/); kas2 23:40 Pulse 88 MON; Pulse Ox 97% ; kas2 23:55 BP 144 / 88 (auto/); kas2 23:55 Pulse 84 MON; Pulse Ox 99% ; kas2 01 00:10 BP 150 / 84 (auto/); kas2 00:10 Pulse 94 MON; Pulse Ox 98% ; kas2 00:35 Temp 96.4(O); jmv 00:40 BP 148 / 78; Pulse 87; Resp 18; Temp 97.8(O); Pulse Ox 99% on R/A; Pain 0/10; kas2 11/29 16:42 Body Mass Index 29.03 (99.79 kg, 185.42 cm) ms18 Vitals: 11/29 16:40 Log In Time N/A - ambulance arrival. ms18 ED Course: 16:30 Patient visited by Yumiko Ureña, Iron Piler. deg 16:30 Anayeli Marinelli, [place] is Primary Nurse. deg 16:30 Patient moved to Waiting deg 16:30 Patient moved to I deg 16:32 Dai Contreras MD is Attending Physician. br1 16:34 Patient visited by Lori Phillips RN. ms18 16:36 Triage Initiated ms18 16:38 Patient visited by Dai Contreras MD. br1 17:18 Troponin Sent. jmk 17:18 Lipase Sent. jmk 17:18 Liver Profile Sent. jmk 17:18 BMP Sent. jmk 17:18 CBC with Diff Sent. jmk 17:21 Patient visited by Ginna Peterson PCA. rs6 17:21 EKG done. (by ED staff). Reviewed by Dai Contreras MD. rs6 17:21 Inserted saline lock: 20 gauge in left. jmk 17:43 Chest, 2 View (pa\E\lat) Returned. EDMS 18:00 Pt greeted and oriented to ED. Patient advised of names of staff involved in care, rs6 location of call dai, wait times and NPO status. Patient has correct armband on for positive identification. Placed in gown. Bed in low position. Call light in reach. Side rails up X 1. Cardiac monitoring not applicable on this patient. 18:00 Assisted with urinal. rs6 18:01 Patient visited by Ginna Peterson PCA. rs6 18:30 Patient visited by Marcus Klein,[place]. jmk 19:26 [facility] Payment Agreement was scanned into [employer] and attached to record. zo 19:27 Kelley De La Cruz RN is Primary Nurse. kc3 19:27 Flora Phillips RN is Primary Nurse. kc3 19:27 Patient moved to 12 kc3 19:28 Patient visited by Kelley De La Cruz,[place]. kc3 19:29 Attending Physician role handed off by Dai Contreras MD mm11 19:29 Ascencion Thompson DO is Attending Physician. mm11 19:31 Patient visited by Flora Phillips RN. kas2 20:17 Patient visited by Flora Phillips RN. kas2 20:28 Primary Nurse role handed off by Kelley De La Cruz,[place] ar3 20:28 Primary Nurse role handed off by Anayeli Marinelli RN ar3 20:59 Patient visited by Flora Phillips RN. kas2 21:41 Patient visited by Flora Phillips RN. kas2 21:53 Patient visited by Flora Phillips RN. kas2 21:59 CT ABD & PELVIS: IV and Oral Contrast Returned. EDMS 22:25 Patient visited by Flora Phillips RN. kas2 22:31 EKG done. (by ED staff). Reviewed by Ascencion Thompson DO. jmv 22:32 Patient visited by Case Gaffney PCA. jmv 22:37 CARDIAC MARKER PANEL Sent. jmv 23:08 Patient visited by Flroa Phillips RN. kas2 23:14 Patient visited by Dede Brown. cmb 23:14 Assisted with urinal. cmb 23:47 Patient visited by Flora Phillips RN. kas2 11/30 00:15 Patient visited by Kasie Kathleen RN. sls1 00:19 Patient visited by Flora Phillips RN. kas2 00:36 Patient visited by Case Gaffney PCA. jmv 00:39 Patient visited by Flora Phillips RN. kas2 00:41 Patient visited by Flora Phillips RN. kas2 00:41 The patient / caregiver is instructed regarding the plan of care and ED course. kas2 00:41 Discontinued IV bleeding controlled, pressure dressing applied, No redness/swelling at [facility] site. No procedures done that require assistance. 03:32 T-Sheet-- Draft Copy was scanned into [employer] and attached to record. hs2 13:31 ECG/EKG was scanned into [employer] and attached to record. gb 13:31 Trend VS was scanned into [employer] and attached to record. gb 20:25 EKG-ADULT Returned. EDMS 20:25 ECG WITH READING ER PHYS Returned. EDMS Administered Medications: 11/29 18:35 Drug: Acetaminophen 650 mg [acetaminophen 325 mg tablet (2 tabs)] Route: PO; jmk 19:15 Drug: Diatrizoate Meglumine & Sodium 10 ml [diatrizoate meglumine and diat.sodium 66 kc3 %-10 % oral solution (10 mL)] Route: PO; 19:28 Drug: Ondansetron 4 mg [ondansetron HCl 2 mg/mL intravenous solution (2 mL)] Route: kc3 IVP; Site: left antecubital; 19:28 Drug: NS 0.9% 1000 ml [sodium chloride 0.9 % intravenous solution] Route: IV; Rate: 150 kc3 mL/hr; Site: left antecubital; 11/30 00:42 Follow up: IV Status: Completed infusion; IV Intake: 1000ml [facility] 11/29 20:19 Drug: Diatrizoate Meglumine & Sodium 10 ml [diatrizoate meglumine and diat.sodium 66 kas2 %-10 % oral solution (10 mL)] Route: PO; 11/30 00:15 Drug: Acetaminophen 650 mg [acetaminophen 325 mg tablet (2 tabs)] Route: PO; sls1 00:15 Drug: ketorolac 30 mg [ketorolac 30 mg/mL (1 mL) injection solution (1 mL)] Route: IVP; sls1 Site: left antecubital; Attachments: 13:31 Trend VS gb Intake: 00:42 IV: 1000.00ml; Total: 1000.00ml. kas2 Output: 11/29 23:14 Urine: 250.00ml (Voided); Total: 250.00ml. cmb Order Results: Lab Order: CBC with Diff; SPEC'M 11/29/16 17:14 Test: WHITE BLOOD COUNT; Value: 5.0; Range: 4.0-10.0; Units: K/mm3; Status: F Test: RED BLOOD COUNT; Value: 4.03; Range: 4.30-6.10; Abnormal: Below low normal; Units: M/mm3; Status: F Test: HEMOGLOBIN; Value: 14.3; Range: 14.0-18.0; Units: g/dl; Status: F Test: HEMATOCRIT; Value: 42.3; Range: 42.0-52.0; Units: %; Status: F Test: MEAN CORPUSCULAR VOLUME; Value: 104.9; Range: 80.0-96.0; Abnormal: Above high normal; Units: fl; Status: F Test: MEAN CORPUSCULAR HEMOGLOBIN; Value: 35.4; Range: 27.0-33.0; Abnormal: Above high normal; Units: pg; Status: F Test: MEAN CORPUSCULAR HGB CONC; Value: 33.7; Range: 32.0-36.5; Units: g/dl; Status: F Test: RED CELL DISTRIBUTION WIDTH; Value: 12.7; Range: 11.5-14.5; Units: %; Status: F Test: PLATELET COUNT, AUTOMATED; Value: 150; Range: 150-450; Units: k/mm3; Status: F Test: NEUTROPHILS %; Value: 75.3; Range: 36.0-66.0; Abnormal: Above high normal; Units: %; Status: F Test: LYMPH %; Value: 15.7; Range: 24.0-44.0; Abnormal: Below low normal; Units: %; Status: F Test: MONO %; Value: 4.9; Range: 0.0-5.0; Units: %; Status: F Test: EOS %; Value: 2.2; Range: 0.0-3.0; Units: %; Status: F Test: BASO %; Value: 0.6; Range: 0.0-1.0; Units: %; Status: F Test: LARGE UNSTAINED CELL %; Value: 1.3; Range: 0.0-4.0; Units: %; Status: F Test: NEUTROPHILS #; Value: 3.8; Range: 1.8-7.7; Units: K/mm3; Status: F Test: LYMPH #; Value: 0.8; Range: 1.5-4.5; Abnormal: Below low normal; Units: K/mm3; Status: F Test: MONO #; Value: 0.3; Range: 0.0-0.8; Units: K/mm3; Status: F Test: EOS #; Value: 0.1; Range: 0.0-0.50; Units: K/mm3; Status: F Test: BASO #; Value: 0.0; Range: 0.0-0.2; Units: K/mm3; Status: F Test: LARGE UNSTAINED CELL #; Value: 0.1; Range: 0.0-0.4; Units: K/mm3; Status: F Lab Order: [facility]; SPEC'M 11/29/16 17:14 Test: GLUCOSE, FASTING; Value: 157; Range: 80-110; Abnormal: Above high normal; Units: MG/DL; Status: F Test: BLOOD UREA NITROGEN; Value: 4; Range: 7-18; Abnormal: Below low normal; Units: MG/DL; Status: F Test: CREATININE FOR GFR; Value: 0.89; Range: 0.70-1.30; Units: MG/DL; Status: F Test: GLOMERULAR FILTRATION RATE; Value: > 60.0; Range: >49; Status: F Test: SODIUM LEVEL; Value: 141; Range: 136-145; Units: MEQ/L; Status: F Test: POTASSIUM SERUM; Value: 4.1; Range: 3.5-5.1; Units: MEQ/L; Status: F Test: CHLORIDE LEVEL; Value: 104; Range: 98-107; Units: MEQ/L; Status: F Test: CARBON DIOXIDE LEVEL; Value: 27; Range: 21-32; Units: MEQ/L; Status: F Test: ANION GAP; Value: 10; Range: 8-16; Units: MEQ/L; Status: F Test: CALCIUM LEVEL; Value: 8.8; Range: 8.8-10.2; Units: MG/DL; Status: F Test Note: ; Units are mL/min/1.73 m2 Chronic Kidney Disease Staging per NKF: Stage I & II GFR >=60 Normal to Mildly Decreased Stage III GFR 30-59 Moderately Decreased Stage IV GFR 15-29 Severely Decreased Stage V GFR <15 Very Little GFR Left ESRD GFR <15 on MODEL BUILDER DISPLAY Lab Order: Liver Profile; SPEC'M 11/29/16 17:14 Test: AST/SGOT; Value: 46; Range: 15-37; Abnormal: Above high normal; Units: U/L; Status: F Test: ALT/SGPT; Value: 37; Range: 12-78; Units: U/L; Status: F Test: ALKALINE PHOSPHATASE; Value: 151; Range: 45-117; Abnormal: Above high normal; Units: U/L; Status: F Test: BILIRUBIN,TOTAL; Value: 1.6; Range: 0.2-1.0; Abnormal: Above high normal; Units: MG/DL; Status: F Test: BILIRUBIN,DIRECT; Value: 1.1; Range: 0.0-0.2; Abnormal: Above high normal; Units: MG/DL; Status: F Test: TOTAL PROTEIN; Value: 7.1; Range: 6.4-8.2; Units: GM/DL; Status: F Test: ALBUMIN; Value: 3.3; Range: 3.2-5.2; Units: GM/DL; Status: F Test: ALBUMIN/GLOBULIN RATIO; Value: 0.87; Range: 1.00-1.93; Abnormal: Below low normal; Status: F Lab Order: Lipase; SPEC'M 11/29/16 17:14 Test: LIPASE; Value: 144; Range: 73-393; Units: U/L; Status: F Lab Order: Troponin; SPEC'M 11/29/16 17:14 Test: TROPONIN I; Value: < 0.02; Range: < 0.10; Units: NG/ML; Status: F Test Note: ; Troponin I Reference Interval for Siemens Macy LOCI: 99th Percentile= 0.00-0.045 ng/ml Risk Stratification: <= 0.10 ng/ml Decreased Risk for Adverse Clinical Events. 0.10-1.50 ng/ml Increased Risk for Adverse Clinical Events. Evaluation of additional criterion and/or repeat testing in 2-6 hours is suggested to rule out myocardial damage. >= 1.50 ng/ml Indicative of Myocardial Injury. Lab Order: CARDIAC MARKER PANEL; SPEC'M 11/29/16 22:36 Test: CPK CREATINE PHOSPHOKINASE; Value: 50; Range: 39-308; Units: U/L; Status: F Test: CK-MB VALUE MASS; Value: 2.0; Range: 0.0-3.6; Units: NG/ML; Status: F Test: MB/CK RELATIVE INDEX; Value: 4.00; Range: < OR =4; Status: F Test: TROPONIN I; Value: < 0.02; Range: < 0.10; Units: NG/ML; Status: F Test Note: ; DIAGNOSIS CRITERIA MMB ng/ml Relative Index (RI) NON-AMI < or = 5 N/A WISE ZONE > 5 < or = 4 AMI > 5 > 4 Radiology Order: EKG-ADULT Test: EKG-ADULT REASON FOR EXAMINATION: Chest Pain; Stationary ECG Study; [facility] - ED; ; Test Date: 2016-11-29; Pat Name: JIMI BUCHANAN Department:; Room: -; 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; : 1950 Requested By: DAI Marrufo; Order Number: [id number] Reading MD: Socorro Basilio; Measurements; Intervals [place]; Rate: 95 P: 64; NV: 142 QRS: 41; QRSD: 88 T: 57; QT: 345; QTc: 435; Interpretive Statements; SINUS RHYTHM; LOW QRS VOLTAGE IN EXTREMITY LEADS; PRWP; NSTTW ABNORMALITY; INCREASED RATE 11/16/16; Electronically Signed On 11-30-2016 19:51:14 EST by Socorro Basilio; Radiology Order: Chest, 2 View (pa\E\lat) Test: Chest, 2 View (pa\E\lat) REASON FOR EXAMINATION: Shortness of Breath; Clinical: Shortness of breath .; ; Comparison: 11/16/2016 .; ; Technique: PA and lateral.; ; Findings:; The mediastinum and cardiac silhouette are normal. The lung hobbs are clear and; without acute consolidation, effusion, or pneumothorax. The skeletal structures; are intact and normal.; ; Impression:; 1. No acute cardiopulmonary process.; ; ; Signed by; Lazarus Orosco MD 11/29/2016 05:06 P; Radiology Order: CT ABD & PELVIS: IV and Oral Contrast Test: CT ABD & PELVIS: IV and Oral Contrast REASON FOR EXAMINATION: Abdomen Pain; Clinical: Periumbilical pain.; ; Technique: Axial contrast enhanced images from the lung bases to the pubic; symphysis using oral and 100 ml Isovue 370 intravenous contrast material with; coronal and sagittal re-formations.; ; Comparison: None.; ; Findings:; 3.7 cm fat containing periumbilical hernia is identified and possibly related to; patient's symptoms.; ; Fatty infiltration to the liver is appreciated without focal hepatic lesion.; Splenomegaly cannot be excluded. Gallbladder demonstrates cholelithiasis without; CT evidence for acute cholecystitis. The pancreas demonstrates 18 mm simple; appearing cyst in the distal body/tail region. Bilateral adrenal glands and; kidneys are relatively normal. Mild symmetric chronic perinephric stranding is; suggested without hydroureteronephrosis or nephrolithiasis. The enteric system; demonstrates diverticulosis without CT evidence for acute diverticulitis and no; evidence for bowel obstruction or acute inflammatory process. Normal terminal; ileum and appendix identified in the right lower quadrant. Pelvis demonstrates; bladder wall thickening and mildly prominent prostate gland. No pelvic; fluid/ascites. No adenopathy. No free air. Mild atherosclerotic changes of the; aorta and branch vessels without aneurysm or dissection. Musculoskeletal; structures demonstrate age-related degenerative changes without focal osseous; abnormality. Lung bases clear. Visualized heart and pericardium normal.; ; Impression:; 1. 3.7 cm fat containing periumbilical hernia with mild stranding possibly; related to patient's symptoms.; 2. Fatty infiltration to the liver with splenomegaly and possible cirrhosis.; 3. Cholelithiasis without CT evidence for acute cholecystitis.; 4. 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 mm11 00:41 Discharge Assessment: patient administered narcotics - no. The following High Risk kas2 Discharge criteria are identified: None. Discharged to home ambulatory. Condition: good Condition: stable Condition: improved. CT Study completed. Property :Personal belongings accompany Pt. 00:57 Patient left the ED. kas2 Signatures: Dispatcher [employer] EDMS Yumiko Ureña, Iron Piler Unit deg Marcus Klein,RN RN Keren Walters, Reg Reg Geraldine Donovan Matthew, DO DO mm11 Dai Contreras MD MD br1 Radha Rizo, FINANCIAL RESERVE CLERK FINANCIAL RESERVE CLERK ar3 Kasie Kathleen, RN RN sls1 Dede Brown cmLori Truong RN RN ms18 Ginna Peterson, FINANCIAL RESERVE CLERK FINANCIAL RESERVE CLERK rs6 Kelley De La CruzRN RN kc3 Kellee White, Reg Reg hs2 Flora Phillips,RN RN kas2 Case Gaffney, FINANCIAL RESERVE CLERK FINANCIAL RESERVE CLERK jmv Chart Complete MTDD
== END 2016-11-30 00:57 | disposition home or self-care (01) ==
LOC: M ED 16:29
DX: R10.9 Unspecified abdominal pain (principal); K76.0 Fatty (change of) liver, not elsewhere classified; R16.1 Splenomegaly, not elsewhere classified; K42.9 Umbilical hernia without obstruction or gangrene; E11.9 Type 2 diabetes mellitus without complications; Z87.891 Personal history of nicotine dependence; Z79.899 Other long term (current) drug therapy; Z88.0 Allergy status to penicillin
CPT/HCPCS: 71020; 74177; 80048; 80076; 82550; 82553; 83690; 84484; 85025; 93005; 96361; 96374; 96375; 99285; J1885; J2405; Q9963; Q9967

== ENCOUNTER 2016-12-05 12:27 | Emergency (ER) | payer MEDICARE ==
[2016-12-05] MEDS ORDERED: ASPIRIN 81 MG CHEW TABLET As Ordered ONE (13:18)
--- NOTE | 2016-12-05 13:43 | REP ---
Clinical: Chest pain . Comparison: 11/29/2016 . Findings: The mediastinum and cardiac silhouette are stable and within normal limits for portable technique. The lung hobbs are clear without acute consolidation, effusion, or pneumothorax. Skeletal structures are intact. Impression: No acute cardiopulmonary process appreciated. Signed by Lazarus Orosco MD 12/05/2016 01:36 P
[2016-12-05 13:49] LABS: BASO % 0.7 % (0.0-1.0); EOS # 0.1 K/mm3 (0.0-0.50); EOS % 3.6 % (0.0-3.0); LARGE UNSTAINED CELL # 0.1 K/mm3 (0.0-0.4); LARGE UNSTAINED CELL % 1.8 % (0.0-4.0); LYMPH # 0.7 K/mm3 (1.5-4.5); LYMPH % 20.4 % (24.0-44.0); MEAN CORPUSCULAR HEMOGLOBIN 34.6 pg (27.0-33.0); MEAN CORPUSCULAR HGB CONC 33.4 g/dl (32.0-36.5); MEAN CORPUSCULAR VOLUME 103.5 fl (80.0-96.0); MONO # 0.2 K/mm3 (0.0-0.8); NEUTROPHILS # 2.4 K/mm3 (1.8-7.7); NEUTROPHILS % 68.5 % (36.0-66.0); RED CELL DISTRIBUTION WIDTH 12.4 % (11.5-14.5); WHITE BLOOD COUNT 3.5 K/mm3 (4.0-10.0)
[2016-12-05 13:54] LABS: ALBUMIN 2.9 GM/DL (3.2-5.2); ALBUMIN/GLOBULIN RATIO 0.81 (1.00-1.93); ALKALINE PHOSPHATASE 125 U/L (45-117); ALT/SGPT 25 U/L (12-78); ANION GAP 9 MEQ/L (8-16); AST/SGOT 37 U/L (15-37); BILIRUBIN,DIRECT 0.6 MG/DL (0.0-0.2); BILIRUBIN,TOTAL 0.9 MG/DL (0.2-1.0); BLOOD UREA NITROGEN 7 MG/DL (7-18); CALCIUM LEVEL 8.4 MG/DL (8.8-10.2); CARBON DIOXIDE LEVEL 24 MEQ/L (21-32); CHLORIDE LEVEL 109 MEQ/L (98-107); GLOMERULAR FILTRATION RATE > 60.0 (>49); GLUCOSE, FASTING 129 MG/DL (80-110); POTASSIUM SERUM 3.8 MEQ/L (3.5-5.1); SODIUM LEVEL 142 MEQ/L (136-145); TOTAL PROTEIN 6.5 GM/DL (6.4-8.2)
[2016-12-05 14:11] LABS: PLATELET COUNT, AUTOMATED 89 k/mm3 (150-450)
--- NOTE | 2016-12-05 17:16 | EDDOCDS ---
Physician Documentation [facility] Name: Romie Buchanan Age: 66 yrs Sex: Male : 1950 Arrival Date: 12/05/2016 Time: 12:27 Bed 4 Private MD: Disposition: 12/05 16:44 Critical Care: Critical care not applicable. pc Disposition: 12/05/16 16:45 Discharged to Home/Self Care. Impression: Chest pain, unspecified. - Condition is Stable. - Discharge Instructions: Nonspecific Chest Pain. - Medication Reconciliation, Local Pharmacy Hours form. - Follow up: Private Physician; When: Dr. Cuevas: call for an appointment; Reason: Continuance of care. Follow up: Seng Sloan MD; When: Call to arrange an appointment; Reason: Further diagnostic work-up, To establish care. - Problem is new. - Symptoms are unchanged. HPI: 12:59 This 66 yrs old Male presents to ER via Ambulance with complaints of Chest pc Pain. 12:59 The history is obtained from the patient, EMS providers. A reliable history and/or pc examination was not able to be obtained, due to the patient is very vague, does not know why he is here. Symptoms The patient says he believes his blood sugar was elevated so his friends, with whom he is now living, called EMS. EMS say that they were called because he had chest pain. He says he is not sure about having chest pain "but now that you mention it, my chest does feel heavy". He is not SOB, denies nausea or vomiting, and otherwise is not able to give any pertinent history. His EMR has been used for history. The patient has been recently been admitted at [facility], was discharged last month, when he presented with weakness and was found to have no acute illnesses: he has chronic alcoholic cirrhosis and hepatitis, and his urine culture was negative but he was treated with Bactrim . Historical: - Allergies: PENICILLINS; - Home Meds: 1. Invokana 300 mg oral tab 1 tab once daily no history of filling scripts 2. metformin 1,000 mg Oral tab 1 tab 2 times per day not sure if he is taking this 3. glimepiride 4 mg oral tab 1 tab twice a day no record of filling this 4. magnesium oxide 500 mg Oral cap daily does not think he takes this - PMHx: Diabetes - NIDDM: uncontrolled; Alcoholism; - PSHx: unknown; - The history from nurses notes was reviewed: and I agree with what is documented. - Social history: No barriers to communication noted, The patient speaks fluent Czech, Speaks appropriately for age, Smoking status: Patient states former smoker of tobacco. - Family history: Not pertinent. - : The pt / caregiver states he / she is not on anticoagulants. Home medication list is obtained from the patient. - Exposure Risk Screening:: None identified. - Immunization history:: Last tetanus immunization: unknown. - Social history:: the patient smokes cigarettes the patient drinks alcohol. ROS: 12:59 All systems are negative except as listed. The cardiovascular, respiratory, pc gastrointestinal and neurological components are also addressed in the HPI. Exam: 12:59 General Appearance: alert, no acute distress. pc 12:59 ENT: ear, nose and throat normal, pharynx normal. 12:59 Neck: supple, non-tender, no masses are appreciated. 12:59 Respiratory: no respiratory distress, normal breath sounds, chest non-tender. 12:59 Cardiovascular: regular pulse rate, regular heart rhythm, normal heart sounds, equal and full pulses bilaterally. 12:59 Abdomen: soft, non-tender, no organomegaly, normal bowel sounds. 12:59 Skin: skin color is normal, warm, dry. 12:59 Extremities: The extremities have a grossly normal appearance, are non-tender, without acute ROM abnormalities. 12:59 Neuro: alert, oriented to person, place and time, cranial nerves normal as tested, no motor deficits, no sensory deficits. 12:59 Psych: normal mood. Vital Signs: 12:36 Pulse 100 MON; Pulse Ox 99% ; pml 12:36 BP 118 / 87 (auto/); pml 12:51 Pulse 86 MON; Pulse Ox 98% ; pml 12:51 BP 126 / 87 (auto/); pml 13:06 Pulse 88 MON; Pulse Ox 99% ; pml 13:06 BP 108 / 72 (auto/); pml 13:21 Pulse 92 MON; Pulse Ox 99% ; pml 13:21 BP 138 / 79 (auto/); pml 13:36 Pulse 88 MON; Pulse Ox 99% ; pml 13:36 BP 134 / 82 (auto/); pml 13:46 Pulse 80 MON; Pulse Ox 99% ; pml 13:46 BP 135 / 82 (auto/); pml 13:49 BP 135 / 82 RA Supine (auto/reg); Pulse 75 LA; Resp 16; Temp 98.3(O); Pulse Ox 99% on tk R/A; Weight 98.88 kg / 217.99 lbs; Height 6 ft. 2 in. (187.96 cm); Pain 0/10; 13:51 Pulse 80 MON; Pulse Ox 97% ; pml 13:51 BP 126 / 81 (auto/); pml 14:06 Pulse 84 MON; Pulse Ox 97% ; pml 14:06 BP 152 / 94 (auto/); pml 14:21 Pulse 86 MON; Pulse Ox 98% ; pml 14:21 BP 157 / 92 (auto/); pml 14:36 BP 124 / 73 (auto/); lf1 14:36 Pulse 76 MON; Pulse Ox 100% ; lf1 14:44 Pulse 74 MON; Pulse Ox 97% ; lf1 14:47 Pulse 76 MON; lf1 14:48 Pulse 82 MON; Pulse Ox 99% ; lf1 15:15 BP 135 / 78; Pulse 90 MON; Resp 18; Pulse Ox 99% ; Pain 2/10; lf1 16:58 BP 155 / 87; Pulse 87; Resp 16; Temp 97.8(T); Pulse Ox 98% on R/A; Pain 4/10; lf1 13:49 Body Mass Index 27.99 (98.88 kg, 187.96 cm) tk MDM: 12:32 ECG WITH READING ER PHYS+CARDIAG ordered. EDMS 12:54 Aspirin Chewable Tablet 324 mg PO once ordered. pc 12:54 Inventory Planner/Pulse Ox/q 30 min VS ordered. pc 12:54 IV Saline Lock ordered. pc 12:54 Rhythm Strip to chart ordered. pc 12:55 Basic Metabolic Profile Ordered. EDMS 12:55 CBC with Diff Ordered. EDMS 12:55 Cardiac Injury Profile Ordered. EDMS 12:55 Troponin Ordered. EDMS 12:55 portable chest Ordered. EDMS 12:56 Test interpretation: EKG. pc 12:58 ETHYL ALCOHOL (ETHANOL) Ordered. EDMS 12:59 LIPASE Ordered. EDMS 12:59 LIVER PROFILE Ordered. EDMS 12:59 Differential diagnosis: acute myocardial infarction, esophagitis, gastritis, unstable pc angina. Plan: labs, EKG, CXR, meds. The patient was medicated with aspirin in the Emergency Department. 13:42 [facility] Payment Agreement was scanned into [employer] and attached to record. jp5 13:42 Financial registration complete. jp5 14:13 Basic Metabolic Profile Reviewed. pc 14:13 CBC with Diff Reviewed. pc 14:13 Cardiac Injury Profile Reviewed. pc 14:13 LIVER PROFILE Reviewed. pc 14:13 Troponin Reviewed. pc 14:13 ETHYL ALCOHOL (ETHANOL) Reviewed. pc 14:13 LIPASE Reviewed. pc 14:13 portable chest Reviewed. pc 14:15 Redraw CIP &Troponin (put time in details section) ordered. pc 14:15 Repeat EKG (put time details section) ordered. pc 14:19 Redraw CIP &Troponin (put time in details section) complete. deg 14:19 Repeat EKG (put time details section) complete. deg 14:20 ECG WITH READING ER PHYS ordered. EDMS 14:21 CARDIAC MARKER PANEL Ordered. EDMS 16:23 Data reviewed: old medical records, vital signs, nurses notes, EKG(s), lab test pc results, all radiology studies and available results. Test interpretation: EKG. Test interpretation: LAB - all labs as ordered have been reviewed, interpreted and considered in the overall management of the clinical presentation; X-RAY - interpreted by Radiologist and personally reviewed, 1 view chest no acute disease. 16:43 CARDIAC MARKER PANEL Reviewed. pc 16:44 The patient has been re-examined and re-evaluated. The clinical presentation did not pc require any ED treatment or interventions. Disposition: The historical points, examination findings, and any diagnostic results supporting the provided diagnosis, were discussed with the patient or legal guardian. The need for outpatient follow up with the provider listed on their discharge instructions was discussed. They were encouraged to return to [facility], or the nearest ED, if symptoms worsen/persist, or for any other questions/concerns. EC:56 Rate is 88 beats/min. Rhythm is regular, Normal Sinus Rhythm. QRS [place] is Normal. LA pc interval is normal. QRS interval is normal. QT interval is normal. No Q waves. T waves are Normal. No ST changes noted. Clinical impression: Normal Sinus Rhythm. 16:23 Rate is 75 beats/min. Rhythm is regular, Normal Sinus Rhythm. QRS [place] is Normal. LA pc interval is normal. QRS interval is normal. QT interval is normal. No Q waves. T waves are Normal. No ST changes noted. Clinical impression: Normal Sinus Rhythm. Administered Medications: 13:20 Drug: Aspirin 324 mg [aspirin 81 mg chewable tablet (4 tabs)] Route: PO; j Signatures: Dispatcher [employer] EDMS Derik Frost MD MD pc Murray, Denise, Pilot Boat [employer] Unit deg Gypsy SkyRN RN lf1 Destiny JonesRN RN Wesly Carvajal jp5 Baldev Smalls RN j The chart was reviewed and I authenticate all verbal orders and agree with the evaluation and treatment provided.Corrections: (The following items were deleted from the chart) 12:58 12:56 LIVER PROFILE+LAB ordered. EDMS EDMS 12:58 12:56 LIPASE+LAB ordered. EDMS EDMS 12:58 12:56 ETHYL ALCOHOL (ETHANOL)+LAB ordered. EDMS EDMS Attachments: 13:42 [facility] Payment Agreement [email or web address]
--- NOTE | 2016-12-05 17:16 | EDDOCDS ---
Nurse's Notes [facility] Name: Romie Buchanan Age: 66 yrs Sex: Male : 1950 Arrival Date: 12/05/2016 Time: 12:27 Bed 4 Private MD: Diagnosis: Chest pain, unspecified Presentation: 12/05 12:30 Presenting complaint: EMS states: that the pt began c/o chest pain approx 1 hr ago. EMS ms18 gave 324 mg aspirin and 1 Nitro with relief. Pt's BS was 216 per EMS. Adult Sepsis Screening: The patient does not have new or worsening altered mentation. Patient's respiratory rate is less than 22. Systolic blood pressure is greater than 100. Patient has a qSOFA score of 0- Negative Sepsis Screen. Suicide/Homicide risk assessment- the patient denies having any suicidal and/or homicidal ideations and does not present with any other emotional, behavioral or mental health complaints. Status: Patient is not a coordinator cardiopulmonary services or dependent. Transition of care: patient was not received from another setting of care. Care prior to arrival: See EMS report. Medications administered prior to arrival: ASA, NTG, IV initiated. Glucose check. 216 Oxygen administered by EMS. 12:30 Acuity: MARCELINO Level 2 ms18 12:30 Method Of Arrival: Ambulance ms18 12:33 Presenting complaint: EMS states: called by room mate who found pt on floor in his pml bedroom and stated he does not feel well. pt is unsure if he fell or how EMS was summoned. Triage Assessment: 12:33 General: Appears in no apparent distress, Behavior is appropriate for age, cooperative. pml Pain: Location: chest Pain currently is 3 out of 10 on a pain scale. Quality of pain is described as dull, heavy, pressure. HIV screening NA for this visit Offered previously. The patient is triaged at the bedside. See Assessment in Nurses Notes section of ED record. Neurological: Level of Consciousness is awake, alert, Oriented to person, place, time. Cardiovascular: Capillary refill < 3 seconds Chest pain is described as diffuse, radiates Does not radiate. episodes are continuous began when awoken by EMS. Respiratory: Airway is patent Respiratory effort is even, unlabored, Respiratory pattern is regular, symmetrical. GI: Abdomen is non- distended. Derm: Skin is pink, warm & dry. Historical: - Allergies: PENICILLINS; - Home Meds: 1. Invokana 300 mg oral tab 1 tab once daily no history of filling scripts 2. metformin 1,000 mg Oral tab 1 tab 2 times per day not sure if he is taking this 3. glimepiride 4 mg oral tab 1 tab twice a day no record of filling this 4. magnesium oxide 500 mg Oral cap daily does not think he takes this - PMHx: Diabetes - NIDDM: uncontrolled; Alcoholism; - PSHx: unknown; - The history from nurses notes was reviewed: and I agree with what is documented. - Social history: No barriers to communication noted, The patient speaks fluent Tajik, Speaks appropriately for age, Smoking status: Patient states former smoker of tobacco. - Family history: Not pertinent. - : The pt / caregiver states he / she is not on anticoagulants. Home medication list is obtained from the patient. - Exposure Risk Screening:: None identified. - Immunization history:: Last tetanus immunization: unknown. - Social history:: the patient smokes cigarettes the patient drinks alcohol. Screenin:47 Screening information is obtained from the patient. Fall risk: No risks identified. pml Assistance ADL's: requires no assistance with activities of daily living. Abuse/DV Screen: The patient / caregiver reports he/she is: not in a situation that causes fear, pain or injury. Nutritional screening: No deficits noted. Advance Directives: Currently, there is no health care proxy. home support is adequate. Assessment: 13:43 General: Appears in no apparent distress, comfortable, Behavior is appropriate for age, pml cooperative. Pain: Location: chest Pain currently is 2 out of 10 on a pain scale. Neurological: Level of Consciousness is awake, alert, Oriented to person, place, time. Cardiovascular: Capillary refill < 3 seconds Rhythm is sinus rhythm No ectopy. Respiratory: Airway is patent Respiratory effort is even, unlabored. Derm: Skin is pink, warm & dry. 14:29 General: resting quietly on stretcher, resps easy and unlabored, skin p/w/d. . pml 15:16 General: Appears comfortable, Behavior is cooperative. Pain: Location: headache Pain lf1 currently is 2 out of 10 on a pain scale. Neurological: Level of Consciousness is awake, alert, Oriented to person, place. Respiratory: Respiratory effort is even, unlabored. GI: Denies nausea, vomiting. Derm: Skin is normal. 16:02 General: Appears in no apparent distress, comfortable, Behavior is cooperative. Pain: lf1 Location: headache Pain currently is 4 out of 10 on a pain scale. Neurological: Level of Consciousness is awake, alert. Respiratory: Respiratory effort is even, unlabored. GI: Denies nausea, vomiting. 17:01 Adult Sepsis Screening: The patient does not have new or worsening altered mentation. lf1 Patient's respiratory rate is less than 22. Systolic blood pressure is greater than 100. Patient has a qSOFA score of 0- Negative Sepsis Screen. General: Appears in no apparent distress, comfortable, Behavior is cooperative. Pain: Location: headache Pain currently is 3 out of 10 on a pain scale. Neurological: Level of Consciousness is awake, alert. EENT: Reports nasal congestion. Respiratory: Respiratory effort is even, unlabored, Reports. GI: Denies nausea, vomiting. Derm: Skin is normal. Vital Signs: 12:36 Pulse 100 MON; Pulse Ox 99% ; pml 12:36 BP 118 / 87 (auto/); pml 12:51 Pulse 86 MON; Pulse Ox 98% ; pml 12:51 BP 126 / 87 (auto/); pml 13:06 Pulse 88 MON; Pulse Ox 99% ; pml 13:06 BP 108 / 72 (auto/); pml 13:21 Pulse 92 MON; Pulse Ox 99% ; pml 13:21 BP 138 / 79 (auto/); pml 13:36 Pulse 88 MON; Pulse Ox 99% ; pml 13:36 BP 134 / 82 (auto/); pml 13:46 Pulse 80 MON; Pulse Ox 99% ; pml 13:46 BP 135 / 82 (auto/); pml 13:49 BP 135 / 82 RA Supine (auto/reg); Pulse 75 LA; Resp 16; Temp 98.3(O); Pulse Ox 99% on tk R/A; Weight 98.88 kg; Height 6 ft. 2 in. (187.96 cm); Pain 0/10; 13:51 Pulse 80 MON; Pulse Ox 97% ; pml 13:51 BP 126 / 81 (auto/); pml 14:06 Pulse 84 MON; Pulse Ox 97% ; pml 14:06 BP 152 / 94 (auto/); pml 14:21 Pulse 86 MON; Pulse Ox 98% ; pml 14:21 BP 157 / 92 (auto/); pml 14:36 BP 124 / 73 (auto/); lf1 14:36 Pulse 76 MON; Pulse Ox 100% ; lf1 14:44 Pulse 74 MON; Pulse Ox 97% ; lf1 14:47 Pulse 76 MON; lf1 14:48 Pulse 82 MON; Pulse Ox 99% ; lf1 15:15 BP 135 / 78; Pulse 90 MON; Resp 18; Pulse Ox 99% ; Pain 2/10; lf1 16:58 BP 155 / 87; Pulse 87; Resp 16; Temp 97.8(T); Pulse Ox 98% on R/A; Pain 4/10; lf1 13:49 Body Mass Index 27.99 (98.88 kg, 187.96 cm) tk Vitals: 12:33 Log In Time N/A - ambulance arrival. pml ED Course: 12:30 Patient visited by Yumiko Ureña, Scouring Train Operator. deg 12:30 Patient moved to Waiting deg 12:30 Patient moved to 4 deg 12:31 Derik Frost MD is Attending Physician. pc 12:35 Triage Initiated ms18 12:45 Patient visited by Destiny Jones RN. pml 12:45 EKG done. (by ED staff). Reviewed by Derik Frost MD. tk 12:47 Patient visited by Max Pozo. tk 12:47 The patient / caregiver is instructed regarding the plan of care and ED course. Patient pml has correct armband on for positive identification. Placed in gown. Bed in low position. Call light in reach. Side rails up X2. book store associate on. Pulse ox on. NIBP on. 12:47 Maintain field IV. Dressing intact. Good blood return noted. Site clean & dry. Gauge & pml site: 18g left wrist. 12:48 Patient visited by Destiny Jones RN. pml 12:54 Patient visited by Derik Frost MD. pc 13:42 [facility] [place] Agreement was scanned into [employer] and attached to record. jp5 13:45 Patient visited by Destiny Jones RN. pml 13:48 portable chest Returned. EDMS 13:51 Patient visited by Max Pozo. tk 13:55 Patient visited by Max Pozo. tk 14:30 Patient visited by Destiny Jones RN. pml 14:44 Discontinued IV lock intact, bleeding controlled, pressure dressing applied, No lf1 redness/swelling at site. No procedures done that require assistance. 15:16 Gypsy Sky,RN is Primary Nurse. lf1 15:16 Patient visited by Gypsy Sky RN. lf1 15:18 Patient visited by Gypsy Sky RN. lf1 16:02 CARDIAC MARKER PANEL Sent. lf1 16:04 Patient visited by Gypsy Sky RN. lf1 16:20 Patient visited by Max Pozo. tk 16:20 EKG done. (by ED staff). Reviewed by Derik Frost MD. tk 16:46 Seng Sloan MD is Referral Physician. pc 17:12 Patient visited by Gypsy Sky RN. lf1 17:12 Assisted to bathroom. Assisted with dressing. Pt escorted to waiting area, after lf1 calling for his ride. Administered Medications: 13:20 Drug: Aspirin 324 mg [aspirin 81 mg chewable tablet (4 tabs)] Route: PO; bcj Order Results: Lab Order: Basic Metabolic Profile; SPEC'M 12/05/16 13:21 Test: GLUCOSE, FASTING; Value: 129; Range: 80-110; Abnormal: Above high normal; Units: MG/DL; Status: F Test: BLOOD UREA NITROGEN; Value: 7; Range: 7-18; Units: MG/DL; Status: F Test: CREATININE FOR GFR; Value: 0.80; Range: 0.70-1.30; Units: MG/DL; Status: F Test: GLOMERULAR FILTRATION RATE; Value: > 60.0; Range: >49; Status: F Test: SODIUM LEVEL; Value: 142; Range: 136-145; Units: MEQ/L; Status: F Test: POTASSIUM SERUM; Value: 3.8; Range: 3.5-5.1; Units: MEQ/L; Status: F Test: CHLORIDE LEVEL; Value: 109; Range: 98-107; Abnormal: Above high normal; Units: MEQ/L; Status: F Test: CARBON DIOXIDE LEVEL; Value: 24; Range: 21-32; Units: MEQ/L; Status: F Test: ANION GAP; Value: 9; Range: 8-16; Units: MEQ/L; Status: F Test: CALCIUM LEVEL; Value: 8.4; Range: 8.8-10.2; Abnormal: Below low normal; Units: MG/DL; Status: F Test Note: ; Units are mL/min/1.73 m2 Chronic Kidney Disease Staging per NKF: Stage I & II GFR >=60 Normal to Mildly Decreased Stage III GFR 30-59 Moderately Decreased Stage IV GFR 15-29 Severely Decreased Stage V GFR <15 Very Little GFR Left ESRD GFR <15 on MACHINE 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 POLISHER Lab Order: CBC with Diff; SPEC'M 12/05/16 13:21 Test: WHITE BLOOD COUNT; Value: 3.5; Range: 4.0-10.0; Abnormal: Below low normal; Units: K/mm3; Status: F Test: RED BLOOD COUNT; Value: 3.90; Range: 4.30-6.10; Abnormal: Below low normal; Units: M/mm3; Status: F Test: HEMOGLOBIN; Value: 13.5; Range: 14.0-18.0; Abnormal: Below low normal; Units: g/dl; Status: F Test: HEMATOCRIT; Value: 40.4; Range: 42.0-52.0; Abnormal: Below low normal; Units: %; Status: F Test: MEAN CORPUSCULAR VOLUME; Value: 103.5; Range: 80.0-96.0; Abnormal: Above high normal; Units: fl; Status: F Test: MEAN CORPUSCULAR HEMOGLOBIN; Value: 34.6; Range: 27.0-33.0; Abnormal: Above high normal; Units: pg; Status: F Test: MEAN CORPUSCULAR HGB CONC; Value: 33.4; Range: 32.0-36.5; Units: g/dl; Status: F Test: RED CELL DISTRIBUTION WIDTH; Value: 12.4; Range: 11.5-14.5; Units: %; Status: F Test: PLATELET COUNT, AUTOMATED; Value: 89; Range: 150-450; Abnormal: Below low normal; Units: k/mm3; Status: F Test: NEUTROPHILS %; Value: 68.5; Range: 36.0-66.0; Abnormal: Above high normal; Units: %; Status: F Test: LYMPH %; Value: 20.4; Range: 24.0-44.0; Abnormal: Below low normal; Units: %; Status: F Test: MONO %; Value: 5.0; Range: 0.0-5.0; Units: %; Status: F Test: EOS %; Value: 3.6; Range: 0.0-3.0; Abnormal: Above high normal; Units: %; Status: F Test: BASO %; Value: 0.7; Range: 0.0-1.0; Units: %; Status: F Test: LARGE UNSTAINED CELL %; Value: 1.8; Range: 0.0-4.0; Units: %; Status: F Test: NEUTROPHILS #; Value: 2.4; Range: 1.8-7.7; Units: K/mm3; Status: F Test: LYMPH #; Value: 0.7; Range: 1.5-4.5; Abnormal: Below low normal; Units: K/mm3; Status: F Test: MONO #; Value: 0.2; Range: 0.0-0.8; Units: K/mm3; Status: F Test: EOS #; Value: 0.1; Range: 0.0-0.50; Units: K/mm3; Status: F Test: BASO #; Value: 0.0; Range: 0.0-0.2; Units: K/mm3; Status: F Test: LARGE UNSTAINED CELL #; Value: 0.1; Range: 0.0-0.4; Units: K/mm3; Status: F Lab Order: Cardiac Injury Profile; SPEC' 12/05/16 13:21 Test: CPK CREATINE PHOSPHOKINASE; Value: 32; Range: 39-308; Abnormal: Below low normal; Units: U/L; Status: F Test: CK-MB VALUE MASS; Value: 1.0; Range: 0.0-3.6; Units: NG/ML; Status: F Test: MB/CK RELATIVE INDEX; Value: 3.12; Range: < OR =4; Status: F Test Note: ; DIAGNOSIS CRITERIA MMB ng/ml Relative Index (RI) NON-AMI < or = 5 N/A WISE ZONE > 5 < or = 4 AMI > 5 > 4 Lab Order: Troponin; SPEC' 12/05/16 13:21 Test: TROPONIN I; Value: < 0.02; Range: < 0.10; Units: NG/ML; Status: F Test Note: ; Troponin I Reference Interval for [employer] [place] LOCI: 99th Percentile= 0.00-0.045 ng/ml Risk Stratification: <= 0.10 ng/ml Decreased Risk for Adverse Clinical Events. 0.10-1.50 ng/ml Increased Risk for Adverse Clinical Events. Evaluation of additional criterion and/or repeat testing in 2-6 hours is suggested to rule out myocardial damage. >= 1.50 ng/ml Indicative of Myocardial Injury. Lab Order: ETHYL ALCOHOL (ETHANOL); SPEC' 12/05/16 13:21 Test: ETHYL ALCOHOL (ETHANOL); Value: < 0.003; Range: 0.000-0.010; Units: %; Status: F Lab Order: LIPASE; [facility] 12/05/16 13:21 Test: LIPASE; Value: 251; Range: 73-393; Units: U/L; Status: F Lab Order: LIVER PROFILE; [facility] 12/05/16 13:21 Test: AST/SGOT; Value: 37; Range: 15-37; Units: U/L; Status: F Test: ALT/SGPT; Value: 25; Range: 12-78; Units: U/L; Status: F Test: ALKALINE PHOSPHATASE; Value: 125; Range: 45-117; Abnormal: Above high normal; Units: U/L; Status: F Test: BILIRUBIN,TOTAL; Value: 0.9; Range: 0.2-1.0; Units: MG/DL; Status: F Test: BILIRUBIN,DIRECT; Value: 0.6; Range: 0.0-0.2; Abnormal: Above high normal; Units: MG/DL; Status: F Test: TOTAL PROTEIN; Value: 6.5; Range: 6.4-8.2; Units: GM/DL; Status: F Test: ALBUMIN; Value: 2.9; Range: 3.2-5.2; Abnormal: Below low normal; Units: GM/DL; Status: F Test: ALBUMIN/GLOBULIN RATIO; Value: 0.81; Range: 1.00-1.93; Abnormal: Below low normal; Status: F Lab Order: CARDIAC MARKER PANEL; [facility] 12/05/16 16:00 Test: CPK CREATINE PHOSPHOKINASE; Value: 48; Range: 39-308; Units: U/L; Status: F Test: CK-MB VALUE MASS; Value: 1.0; Range: 0.0-3.6; Units: NG/ML; Status: F Test: MB/CK RELATIVE INDEX; Value: 2.08; Range: < OR =4; Status: F Test: TROPONIN I; Value: < 0.02; Range: < 0.10; Units: NG/ML; Status: F Test Note: ; DIAGNOSIS CRITERIA MMB ng/ml Relative Index (RI) NON-AMI < or = 5 N/A WISE ZONE > 5 < or = 4 AMI > 5 > 4 Radiology Order: portable chest Test: portable chest REASON FOR EXAMINATION: Chest Pain; Clinical: Chest pain .; ; Comparison: 11/29/2016 .; ; Findings:; The mediastinum and cardiac silhouette are stable and within normal limits for; portable technique. The lung hobbs are clear without acute consolidation,; effusion, or pneumothorax. Skeletal structures are intact.; ; Impression:; No acute cardiopulmonary process appreciated.; ; ; Signed by; Lazarus Orosco MD 12/05/2016 01:36 P; Outcome: 16:45 Discharge ordered by Provider. pc 17:13 Discharge Assessment: Patient awake, alert and oriented x 3. No cognitive and/or lf1 functional deficits noted. Patient verbalized understanding of disposition instructions. Patient awake and alert. Oriented to person, place and time. Patient verbalized understanding of disposition instructions. Patient patient administered narcotics - no. The following High Risk Discharge criteria are identified: None. Discharged to home Friend called for transport home. Condition: improved. Discharge instructions given to patient, verbal instructions reviewed, written instructions reviewed Instructed on discharge instructions, follow up and referral plans. Demonstrated understanding of instructions, Pt was receptive of discharge instructions/ teaching. No special radiology studies were completed. Property :Personal belongings accompany Pt. 17:15 Patient left the ED. lf1 Signatures: Dispatcher [employer] EDMS Derik Frost MD MD pc Murray, Denise, Scouring Train Operator Unit deg Baldev Smalls, RN Gypsy PastorRN RN lf1 Destiny Jones RN RN pml Smith, Mallory, RN RN ms18 Wesly Barrera 5 Max Pozo MTDD
--- NOTE | 2016-12-06 12:51 | ECGEPIP ---
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
--- NOTE | 2016-12-06 12:54 | ECGEPIP ---
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
--- NOTE | 2016-12-07 18:17 | EDDOCDS ---
Physician Documentation [facility] Name: Romie Buchanan Age: 66 yrs Sex: Male : 1950 Arrival Date: 12/05/2016 Time: 12:27 Bed 4 Private MD: Disposition: 12/05 16:44 Critical Care: Critical care not applicable. pc Disposition: 12/05/16 16:45 Discharged to Home/Self Care. Impression: Chest pain, unspecified. - Condition is Stable. - Discharge Instructions: Nonspecific Chest Pain. - Medication Reconciliation, Local Pharmacy Hours form. - Follow up: Private Physician; When: Dr. Cuevas: call for an appointment; Reason: Continuance of care. Follow up: Seng Sloan MD; When: Call to arrange an appointment; Reason: Further diagnostic work-up, To establish care. - Problem is new. - Symptoms are unchanged. HPI: 12:59 This 66 yrs old Male presents to ER via Ambulance with complaints of Chest pc Pain. 12:59 The history is obtained from the patient, EMS providers. A reliable history and/or pc examination was not able to be obtained, due to the patient is very vague, does not know why he is here. Symptoms The patient says he believes his blood sugar was elevated so his friends, with whom he is now living, called EMS. EMS say that they were called because he had chest pain. He says he is not sure about having chest pain "but now that you mention it, my chest does feel heavy". He is not SOB, denies nausea or vomiting, and otherwise is not able to give any pertinent history. His EMR has been used for history. The patient has been recently been admitted at [facility], was discharged last month, when he presented with weakness and was found to have no acute illnesses: he has chronic alcoholic cirrhosis and hepatitis, and his urine culture was negative but he was treated with Bactrim . Historical: - Allergies: PENICILLINS; - Home Meds: 1. Invokana 300 mg oral tab 1 tab once daily no history of filling scripts 2. metformin 1,000 mg Oral tab 1 tab 2 times per day not sure if he is taking this 3. glimepiride 4 mg oral tab 1 tab twice a day no record of filling this 4. magnesium oxide 500 mg Oral cap daily does not think he takes this - PMHx: Diabetes - NIDDM: uncontrolled; Alcoholism; - PSHx: unknown; - The history from nurses notes was reviewed: and I agree with what is documented. - Social history: No barriers to communication noted, The patient speaks fluent Rwandan, Speaks appropriately for age, Smoking status: Patient states former smoker of tobacco. - Family history: Not pertinent. - : The pt / caregiver states he / she is not on anticoagulants. Home medication list is obtained from the patient. - Exposure Risk Screening:: None identified. - Immunization history:: Last tetanus immunization: unknown. - Social history:: the patient smokes cigarettes the patient drinks alcohol. ROS: 12:59 All systems are negative except as listed. The cardiovascular, respiratory, pc gastrointestinal and neurological components are also addressed in the HPI. Exam: 12:59 General Appearance: alert, no acute distress. pc 12:59 ENT: ear, nose and throat normal, pharynx normal. 12:59 Neck: supple, non-tender, no masses are appreciated. 12:59 Respiratory: no respiratory distress, normal breath sounds, chest non-tender. 12:59 Cardiovascular: regular pulse rate, regular heart rhythm, normal heart sounds, equal and full pulses bilaterally. 12:59 Abdomen: soft, non-tender, no organomegaly, normal bowel sounds. 12:59 Skin: skin color is normal, warm, dry. 12:59 Extremities: The extremities have a grossly normal appearance, are non-tender, without acute ROM abnormalities. 12:59 Neuro: alert, oriented to person, place and time, cranial nerves normal as tested, no motor deficits, no sensory deficits. 12:59 Psych: normal mood. Vital Signs: 12:36 Pulse 100 MON; Pulse Ox 99% ; pml 12:36 BP 118 / 87 (auto/); pml 12:51 Pulse 86 MON; Pulse Ox 98% ; pml 12:51 BP 126 / 87 (auto/); pml 13:06 Pulse 88 MON; Pulse Ox 99% ; pml 13:06 BP 108 / 72 (auto/); pml 13:21 Pulse 92 MON; Pulse Ox 99% ; pml 13:21 BP 138 / 79 (auto/); pml 13:36 Pulse 88 MON; Pulse Ox 99% ; pml 13:36 BP 134 / 82 (auto/); pml 13:46 Pulse 80 MON; Pulse Ox 99% ; pml 13:46 BP 135 / 82 (auto/); pml 13:49 BP 135 / 82 RA Supine (auto/reg); Pulse 75 LA; Resp 16; Temp 98.3(O); Pulse Ox 99% on tk R/A; Weight 98.88 kg / 217.99 lbs; Height 6 ft. 2 in. (187.96 cm); Pain 0/10; 13:51 Pulse 80 MON; Pulse Ox 97% ; pml 13:51 BP 126 / 81 (auto/); pml 14:06 Pulse 84 MON; Pulse Ox 97% ; pml 14:06 BP 152 / 94 (auto/); pml 14:21 Pulse 86 MON; Pulse Ox 98% ; pml 14:21 BP 157 / 92 (auto/); pml 14:36 BP 124 / 73 (auto/); lf1 14:36 Pulse 76 MON; Pulse Ox 100% ; lf1 14:44 Pulse 74 MON; Pulse Ox 97% ; lf1 14:47 Pulse 76 MON; lf1 14:48 Pulse 82 MON; Pulse Ox 99% ; lf1 15:15 BP 135 / 78; Pulse 90 MON; Resp 18; Pulse Ox 99% ; Pain 2/10; lf1 16:58 BP 155 / 87; Pulse 87; Resp 16; Temp 97.8(T); Pulse Ox 98% on R/A; Pain 4/10; lf1 13:49 Body Mass Index 27.99 (98.88 kg, 187.96 cm) tk MDM: 12:32 ECG WITH READING ER PHYS+CARDIAG ordered. EDMS 12:54 Aspirin Chewable Tablet 324 mg PO once ordered. pc 12:54 Presentation Specialist/Pulse Ox/q 30 min VS ordered. pc 12:54 IV Saline Lock ordered. pc 12:54 Rhythm Strip to chart ordered. pc 12:55 Basic Metabolic Profile Ordered. EDMS 12:55 CBC with Diff Ordered. EDMS 12:55 Cardiac Injury Profile Ordered. EDMS 12:55 Troponin Ordered. EDMS 12:55 portable chest Ordered. EDMS 12:56 Test interpretation: EKG. pc 12:58 ETHYL ALCOHOL (ETHANOL) Ordered. EDMS 12:59 LIPASE Ordered. EDMS 12:59 LIVER PROFILE Ordered. EDMS 12:59 Differential diagnosis: acute myocardial infarction, esophagitis, gastritis, unstable pc angina. Plan: labs, EKG, CXR, meds. The patient was medicated with aspirin in the Emergency Department. 13:42 [facility] Payment Agreement was scanned into [employer] and attached to record. jp5 13:42 Financial registration complete. jp5 14:13 Basic Metabolic Profile Reviewed. pc 14:13 CBC with Diff Reviewed. pc 14:13 Cardiac Injury Profile Reviewed. pc 14:13 LIVER PROFILE Reviewed. pc 14:13 Troponin Reviewed. pc 14:13 ETHYL ALCOHOL (ETHANOL) Reviewed. pc 14:13 LIPASE Reviewed. pc 14:13 portable chest Reviewed. pc 14:15 Redraw CIP &Troponin (put time in details section) ordered. pc 14:15 Repeat EKG (put time details section) ordered. pc 14:19 Redraw CIP &Troponin (put time in details section) complete. deg 14:19 Repeat EKG (put time details section) complete. deg 14:20 ECG WITH READING ER PHYS ordered. EDMS 14:21 CARDIAC MARKER PANEL Ordered. EDMS 16:23 Data reviewed: old medical records, vital signs, nurses notes, EKG(s), lab test pc results, all radiology studies and available results. Test interpretation: EKG. Test interpretation: LAB - all labs as ordered have been reviewed, interpreted and considered in the overall management of the clinical presentation; X-RAY - interpreted by Radiologist and personally reviewed, 1 view chest no acute disease. 16:43 CARDIAC MARKER PANEL Reviewed. pc 16:44 The patient has been re-examined and re-evaluated. The clinical presentation did not pc require any ED treatment or interventions. Disposition: The historical points, examination findings, and any diagnostic results supporting the provided diagnosis, were discussed with the patient or legal guardian. The need for outpatient follow up with the provider listed on their discharge instructions was discussed. They were encouraged to return to [facility], or the nearest ED, if symptoms worsen/persist, or for any other questions/concerns. 12/06 13:07 ECG/EKG was scanned into [employer] and attached to record. 13:08 Rhythm Strip was scanned into [employer] and attached to record. gb 14:30 PCR was scanned into [employer] and attached to record. EC/15 12:56 Rate is 88 beats/min. Rhythm is regular, Normal Sinus Rhythm. QRS [place] is Normal. [place] pc interval is normal. QRS interval is normal. QT interval is normal. No Q waves. T waves are Normal. No ST changes noted. Clinical impression: Normal Sinus Rhythm. 16:23 Rate is 75 beats/min. Rhythm is regular, Normal Sinus Rhythm. QRS [place] is Normal. [place] pc interval is normal. QRS interval is normal. QT interval is normal. No Q waves. T waves are Normal. No ST changes noted. Clinical impression: Normal Sinus Rhythm. Administered Medications: 13:20 Drug: Aspirin 324 mg [aspirin 81 mg chewable tablet (4 tabs)] Route: PO; j Signatures: Dispatcher [employer] EDMS Derik Frost MD MD pc Murray, Denise, Income Auditor Unit deg Keren Mcgovern, Reg Reg gb Gypsy Sky,RN RN lf1 Destiny JonesRN RN Wesly Carvajal jp5 Baldev Smalls RNj The chart was reviewed and I authenticate all verbal orders and agree with the evaluation and treatment provided.Corrections: (The following items were deleted from the chart) 12:58 12:56 LIVER PROFILE+LAB ordered. EDMS EDMS 12:58 12:56 LIPASE+LAB ordered. EDMS EDMS 12:58 12:56 ETHYL ALCOHOL (ETHANOL)+LAB ordered. EDMS EDMS Attachments: 13:42 [facility] Payment Agreement jp5 12/06 13:07 ECG/EKG Chart Complete [facility]
--- NOTE | 2016-12-07 18:17 | EDDOCDS ---
Physician Documentation [facility] Name: Romie Buchanan Age: 66 yrs Sex: Male : 1950 Arrival Date: 12/05/2016 Time: 12:27 Bed 4 Private MD: Disposition: 12/05 16:44 Critical Care: Critical care not applicable. pc Disposition: 12/05/16 16:45 Discharged to Home/Self Care. Impression: Chest pain, unspecified. - Condition is Stable. - Discharge Instructions: Nonspecific Chest Pain. - Medication Reconciliation, Local Pharmacy Hours form. - Follow up: Private Physician; When: Dr. Cuevas: call for an appointment; Reason: Continuance of care. Follow up: Seng Sloan MD; When: Call to arrange an appointment; Reason: Further diagnostic work-up, To establish care. - Problem is new. - Symptoms are unchanged. HPI: 12:59 This 66 yrs old Male presents to ER via Ambulance with complaints of Chest pc Pain. 12:59 The history is obtained from the patient, EMS providers. A reliable history and/or pc examination was not able to be obtained, due to the patient is very vague, does not know why he is here. Symptoms The patient says he believes his blood sugar was elevated so his friends, with whom he is now living, called EMS. EMS say that they were called because he had chest pain. He says he is not sure about having chest pain "but now that you mention it, my chest does feel heavy". He is not SOB, denies nausea or vomiting, and otherwise is not able to give any pertinent history. His EMR has been used for history. The patient has been recently been admitted at [facility], was discharged last month, when he presented with weakness and was found to have no acute illnesses: he has chronic alcoholic cirrhosis and hepatitis, and his urine culture was negative but he was treated with Bactrim . Historical: - Allergies: PENICILLINS; - Home Meds: 1. Invokana 300 mg oral tab 1 tab once daily no history of filling scripts 2. metformin 1,000 mg Oral tab 1 tab 2 times per day not sure if he is taking this 3. glimepiride 4 mg oral tab 1 tab twice a day no record of filling this 4. magnesium oxide 500 mg Oral cap daily does not think he takes this - PMHx: Diabetes - NIDDM: uncontrolled; Alcoholism; - PSHx: unknown; - The history from nurses notes was reviewed: and I agree with what is documented. - Social history: No barriers to communication noted, The patient speaks fluent Jamaican, Speaks appropriately for age, Smoking status: Patient states former smoker of tobacco. - Family history: Not pertinent. - : The pt / caregiver states he / she is not on anticoagulants. Home medication list is obtained from the patient. - Exposure Risk Screening:: None identified. - Immunization history:: Last tetanus immunization: unknown. - Social history:: the patient smokes cigarettes the patient drinks alcohol. ROS: 12:59 All systems are negative except as listed. The cardiovascular, respiratory, pc gastrointestinal and neurological components are also addressed in the HPI. Exam: 12:59 General Appearance: alert, no acute distress. pc 12:59 ENT: ear, nose and throat normal, pharynx normal. 12:59 Neck: supple, non-tender, no masses are appreciated. 12:59 Respiratory: no respiratory distress, normal breath sounds, chest non-tender. 12:59 Cardiovascular: regular pulse rate, regular heart rhythm, normal heart sounds, equal and full pulses bilaterally. 12:59 Abdomen: soft, non-tender, no organomegaly, normal bowel sounds. 12:59 Skin: skin color is normal, warm, dry. 12:59 Extremities: The extremities have a grossly normal appearance, are non-tender, without acute ROM abnormalities. 12:59 Neuro: alert, oriented to person, place and time, cranial nerves normal as tested, no motor deficits, no sensory deficits. 12:59 Psych: normal mood. Vital Signs: 12:36 Pulse 100 MON; Pulse Ox 99% ; pml 12:36 BP 118 / 87 (auto/); pml 12:51 Pulse 86 MON; Pulse Ox 98% ; pml 12:51 BP 126 / 87 (auto/); pml 13:06 Pulse 88 MON; Pulse Ox 99% ; pml 13:06 BP 108 / 72 (auto/); pml 13:21 Pulse 92 MON; Pulse Ox 99% ; pml 13:21 BP 138 / 79 (auto/); pml 13:36 Pulse 88 MON; Pulse Ox 99% ; pml 13:36 BP 134 / 82 (auto/); pml 13:46 Pulse 80 MON; Pulse Ox 99% ; pml 13:46 BP 135 / 82 (auto/); pml 13:49 BP 135 / 82 RA Supine (auto/reg); Pulse 75 LA; Resp 16; Temp 98.3(O); Pulse Ox 99% on tk R/A; Weight 98.88 kg / 217.99 lbs; Height 6 ft. 2 in. (187.96 cm); Pain 0/10; 13:51 Pulse 80 MON; Pulse Ox 97% ; pml 13:51 BP 126 / 81 (auto/); pml 14:06 Pulse 84 MON; Pulse Ox 97% ; pml 14:06 BP 152 / 94 (auto/); pml 14:21 Pulse 86 MON; Pulse Ox 98% ; pml 14:21 BP 157 / 92 (auto/); pml 14:36 BP 124 / 73 (auto/); lf1 14:36 Pulse 76 MON; Pulse Ox 100% ; lf1 14:44 Pulse 74 MON; Pulse Ox 97% ; lf1 14:47 Pulse 76 MON; lf1 14:48 Pulse 82 MON; Pulse Ox 99% ; lf1 15:15 BP 135 / 78; Pulse 90 MON; Resp 18; Pulse Ox 99% ; Pain 2/10; lf1 16:58 BP 155 / 87; Pulse 87; Resp 16; Temp 97.8(T); Pulse Ox 98% on R/A; Pain 4/10; lf1 13:49 Body Mass Index 27.99 (98.88 kg, 187.96 cm) tk MDM: 12:32 ECG WITH READING ER PHYS+CARDIAG ordered. EDMS 12:54 Aspirin Chewable Tablet 324 mg PO once ordered. pc 12:54 Industrial Retrofit Designer/Pulse Ox/q 30 min VS ordered. pc 12:54 IV Saline Lock ordered. pc 12:54 Rhythm Strip to chart ordered. pc 12:55 Basic Metabolic Profile Ordered. EDMS 12:55 CBC with Diff Ordered. EDMS 12:55 Cardiac Injury Profile Ordered. EDMS 12:55 Troponin Ordered. EDMS 12:55 portable chest Ordered. EDMS 12:56 Test interpretation: EKG. pc 12:58 ETHYL ALCOHOL (ETHANOL) Ordered. EDMS 12:59 LIPASE Ordered. EDMS 12:59 LIVER PROFILE Ordered. EDMS 12:59 Differential diagnosis: acute myocardial infarction, esophagitis, gastritis, unstable pc angina. Plan: labs, EKG, CXR, meds. The patient was medicated with aspirin in the Emergency Department. 13:42 [facility] Payment Agreement was scanned into [employer] and attached to record. jp5 13:42 Financial registration complete. jp5 14:13 Basic Metabolic Profile Reviewed. pc 14:13 CBC with Diff Reviewed. pc 14:13 Cardiac Injury Profile Reviewed. pc 14:13 LIVER PROFILE Reviewed. pc 14:13 Troponin Reviewed. pc 14:13 ETHYL ALCOHOL (ETHANOL) Reviewed. pc 14:13 LIPASE Reviewed. pc 14:13 portable chest Reviewed. pc 14:15 Redraw CIP &Troponin (put time in details section) ordered. pc 14:15 Repeat EKG (put time details section) ordered. pc 14:19 Redraw CIP &Troponin (put time in details section) complete. deg 14:19 Repeat EKG (put time details section) complete. deg 14:20 ECG WITH READING ER PHYS ordered. EDMS 14:21 CARDIAC MARKER PANEL Ordered. EDMS 16:23 Data reviewed: old medical records, vital signs, nurses notes, EKG(s), lab test pc results, all radiology studies and available results. Test interpretation: EKG. Test interpretation: LAB - all labs as ordered have been reviewed, interpreted and considered in the overall management of the clinical presentation; X-RAY - interpreted by Radiologist and personally reviewed, 1 view chest no acute disease. 16:43 CARDIAC MARKER PANEL Reviewed. pc 16:44 The patient has been re-examined and re-evaluated. The clinical presentation did not pc require any ED treatment or interventions. Disposition: The historical points, examination findings, and any diagnostic results supporting the provided diagnosis, were discussed with the patient or legal guardian. The need for outpatient follow up with the provider listed on their discharge instructions was discussed. They were encouraged to return to [facility], or the nearest ED, if symptoms worsen/persist, or for any other questions/concerns. 12/06 13:07 ECG/EKG was scanned into [employer] and attached to record. 13:08 Rhythm Strip was scanned into [employer] and attached to record. gb 14:30 PCR was scanned into [employer] and attached to record. EC/15 12:56 Rate is 88 beats/min. Rhythm is regular, Normal Sinus Rhythm. QRS [place] is Normal. [place] pc interval is normal. QRS interval is normal. QT interval is normal. No Q waves. T waves are Normal. No ST changes noted. Clinical impression: Normal Sinus Rhythm. 16:23 Rate is 75 beats/min. Rhythm is regular, Normal Sinus Rhythm. QRS [place] is Normal. NC pc interval is normal. QRS interval is normal. QT interval is normal. No Q waves. T waves are Normal. No ST changes noted. Clinical impression: Normal Sinus Rhythm. Administered Medications: 13:20 Drug: Aspirin 324 mg [aspirin 81 mg chewable tablet (4 tabs)] Route: PO; j Signatures: Dispatcher [employer] EDMS Derik Frost MD MD pc Murray, Denise, Stiff Leg Operator Unit deg Keren Mcgovern, Reg Reg gb Gypsy Sky,RN RN lf1 Destiny JonesRN RN Wesly Carvajal jp5 Baldev Smalls RNj The chart was reviewed and I authenticate all verbal orders and agree with the evaluation and treatment provided.Corrections: (The following items were deleted from the chart) 12:58 12:56 LIVER PROFILE+LAB ordered. EDMS EDMS 12:58 12:56 LIPASE+LAB ordered. EDMS EDMS 12:58 12:56 ETHYL ALCOHOL (ETHANOL)+LAB ordered. EDMS EDMS Attachments: 13:42 [facility] Payment Agreement jp5 12/06 13:07 [facility]EKG Chart [facility]
--- NOTE | 2016-12-07 18:17 | EDDOCDS ---
Nurse's Notes [facility], [place] Name: Romie Key Age: 66 yrs Sex: Male : 1950 Arrival Date: 12/05/2016 Time: 12:27 Bed 4 Private MD: Diagnosis: Chest pain, unspecified Presentation: 12/05 12:30 Presenting complaint: EMS states: that the pt began c/o chest pain approx 1 hr ago. EMS ms18 gave 324 mg aspirin and 1 Nitro with relief. Pt's BS was 216 per EMS. Adult Sepsis Screening: The patient does not have new or worsening altered mentation. Patient's respiratory rate is less than 22. Systolic blood pressure is greater than 100. Patient has a qSOFA score of 0- Negative Sepsis Screen. Suicide/Homicide risk assessment- the patient denies having any suicidal and/or homicidal ideations and does not present with any other emotional, behavioral or mental health complaints. Status: Patient is not a insurance service representative or dependent. Transition of care: patient was not received from another setting of care. Care prior to arrival: See EMS report. Medications administered prior to arrival: ASA, NTG, IV initiated. Glucose check. 216 Oxygen administered by EMS. 12:30 Acuity: MARCELINO Level 2 ms18 12:30 Method Of Arrival: Ambulance ms18 12:33 Presenting complaint: EMS states: called by room mate who found pt on floor in his pml bedroom and stated he does not feel well. pt is unsure if he fell or how EMS was summoned. Triage Assessment: 12:33 General: Appears in no apparent distress, Behavior is appropriate for age, cooperative. pml Pain: Location: chest Pain currently is 3 out of 10 on a pain scale. Quality of pain is described as dull, heavy, pressure. HIV screening NA for this visit Offered previously. The patient is triaged at the bedside. See Assessment in Nurses Notes section of ED record. Neurological: Level of Consciousness is awake, alert, Oriented to person, place, time. Cardiovascular: Capillary refill < 3 seconds Chest pain is described as diffuse, radiates Does not radiate. episodes are continuous began when awoken by EMS. Respiratory: Airway is patent Respiratory effort is even, unlabored, Respiratory pattern is regular, symmetrical. GI: Abdomen is non- distended. Derm: Skin is pink, warm & dry. Historical: - Allergies: PENICILLINS; - Home Meds: 1. Invokana 300 mg oral tab 1 tab once daily no history of filling scripts 2. metformin 1,000 mg Oral tab 1 tab 2 times per day not sure if he is taking this 3. glimepiride 4 mg oral tab 1 tab twice a day no record of filling this 4. magnesium oxide 500 mg Oral cap daily does not think he takes this - PMHx: Diabetes - NIDDM: uncontrolled; Alcoholism; - PSHx: unknown; - The history from nurses notes was reviewed: and I agree with what is documented. - Social history: No barriers to communication noted, The patient speaks fluent Omani, Speaks appropriately for age, Smoking status: Patient states former smoker of tobacco. - Family history: Not pertinent. - : The pt / caregiver states he / she is not on anticoagulants. Home medication list is obtained from the patient. - Exposure Risk Screening:: None identified. - Immunization history:: Last tetanus immunization: unknown. - Social history:: the patient smokes cigarettes the patient drinks alcohol. Screenin:47 Screening information is obtained from the patient. Fall risk: No risks identified. pml Assistance ADL's: requires no assistance with activities of daily living. Abuse/DV Screen: The patient / caregiver reports he/she is: not in a situation that causes fear, pain or injury. Nutritional screening: No deficits noted. Advance Directives: Currently, there is no health care proxy. home support is adequate. Assessment: 13:43 General: Appears in no apparent distress, comfortable, Behavior is appropriate for age, pml cooperative. Pain: Location: chest Pain currently is 2 out of 10 on a pain scale. Neurological: Level of Consciousness is awake, alert, Oriented to person, place, time. Cardiovascular: Capillary refill < 3 seconds Rhythm is sinus rhythm No ectopy. Respiratory: Airway is patent Respiratory effort is even, unlabored. Derm: Skin is pink, warm & dry. 14:29 General: resting quietly on stretcher, resps easy and unlabored, skin p/w/d. . pml 15:16 General: Appears comfortable, Behavior is cooperative. Pain: Location: headache Pain lf1 currently is 2 out of 10 on a pain scale. Neurological: Level of Consciousness is awake, alert, Oriented to person, place. Respiratory: Respiratory effort is even, unlabored. GI: Denies nausea, vomiting. Derm: Skin is normal. 16:02 General: Appears in no apparent distress, comfortable, Behavior is cooperative. Pain: lf1 Location: headache Pain currently is 4 out of 10 on a pain scale. Neurological: Level of Consciousness is awake, alert. Respiratory: Respiratory effort is even, unlabored. GI: Denies nausea, vomiting. 17:01 Adult Sepsis Screening: The patient does not have new or worsening altered mentation. lf1 Patient's respiratory rate is less than 22. Systolic blood pressure is greater than 100. Patient has a qSOFA score of 0- Negative Sepsis Screen. General: Appears in no apparent distress, comfortable, Behavior is cooperative. Pain: Location: headache Pain currently is 3 out of 10 on a pain scale. Neurological: Level of Consciousness is awake, alert. EENT: Reports nasal congestion. Respiratory: Respiratory effort is even, unlabored, Reports. GI: Denies nausea, vomiting. Derm: Skin is normal. Vital Signs: 12:36 Pulse 100 MON; Pulse Ox 99% ; pml 12:36 BP 118 / 87 (auto/); pml 12:51 Pulse 86 MON; Pulse Ox 98% ; pml 12:51 BP 126 / 87 (auto/); pml 13:06 Pulse 88 MON; Pulse Ox 99% ; pml 13:06 BP 108 / 72 (auto/); pml 13:21 Pulse 92 MON; Pulse Ox 99% ; pml 13:21 BP 138 / 79 (auto/); pml 13:36 Pulse 88 MON; Pulse Ox 99% ; pml 13:36 BP 134 / 82 (auto/); pml 13:46 Pulse 80 MON; Pulse Ox 99% ; pml 13:46 BP 135 / 82 (auto/); pml 13:49 BP 135 / 82 RA Supine (auto/reg); Pulse 75 LA; Resp 16; Temp 98.3(O); Pulse Ox 99% on tk R/A; Weight 98.88 kg; Height 6 ft. 2 in. (187.96 cm); Pain 0/10; 13:51 Pulse 80 MON; Pulse Ox 97% ; pml 13:51 BP 126 / 81 (auto/); pml 14:06 Pulse 84 MON; Pulse Ox 97% ; pml 14:06 BP 152 / 94 (auto/); pml 14:21 Pulse 86 MON; Pulse Ox 98% ; pml 14:21 BP 157 / 92 (auto/); pml 14:36 BP 124 / 73 (auto/); lf1 14:36 Pulse 76 MON; Pulse Ox 100% ; lf1 14:44 Pulse 74 MON; Pulse Ox 97% ; lf1 14:47 Pulse 76 MON; lf1 14:48 Pulse 82 MON; Pulse Ox 99% ; lf1 15:15 BP 135 / 78; Pulse 90 MON; Resp 18; Pulse Ox 99% ; Pain 2/10; lf1 16:58 BP 155 / 87; Pulse 87; Resp 16; Temp 97.8(T); Pulse Ox 98% on R/A; Pain 4/10; lf1 13:49 Body Mass Index 27.99 (98.88 kg, 187.96 cm) tk Vitals: 12:33 Log In Time N/A - ambulance arrival. pml ED Course: 12:30 Patient visited by Yumiko Ureña, Senior Accounting Associate. deg 12:30 Patient moved to Waiting deg 12:30 Patient moved to 4 deg 12:31 Derik Frost MD is Attending Physician. pc 12:35 Triage Initiated ms18 12:45 Patient visited by Destiny Jones RN. pml 12:45 EKG done. (by ED staff). Reviewed by Derik Frost MD. tk 12:47 Patient visited by Max Pozo. tk 12:47 The patient / caregiver is instructed regarding the plan of care and ED course. Patient pml has correct armband on for positive identification. Placed in gown. Bed in low position. Call light in reach. Side rails up X2. desk monitor on. Pulse ox on. NIBP on. 12:47 Maintain field IV. Dressing intact. Good blood return noted. Site clean & dry. Gauge & pml site: 18g left wrist. 12:48 Patient visited by Destiny Jones RN. pml 12:54 Patient visited by Derik Frost MD. pc 13:42 [facility] Payment Agreement was scanned into [employer] and attached to record. jp5 13:45 Patient visited by Destiny Jones RN. pml 13:48 portable chest Returned. EDMS 13:51 Patient visited by Max Pozo. tk 13:55 Patient visited by Max Pozo. tk 14:30 Patient visited by Destiny Jones RN. pml 14:44 Discontinued IV lock intact, bleeding controlled, pressure dressing applied, No lf1 redness/swelling at site. No procedures done that require assistance. 15:16 Gypsy Sky,RN is Primary Nurse. lf1 15:16 Patient visited by Gypsy Sky RN. lf1 15:18 Patient visited by Gypsy Sky,[place]. lf1 16:02 CARDIAC MARKER PANEL Sent. lf1 16:04 Patient visited by Gypsy Sky,[place]. lf1 16:20 Patient visited by Max Pozo. tk 16:20 EKG done. (by ED staff). Reviewed by Derik Frost MD. tk 16:46 Seng Sloan MD is Referral Physician. pc 17:12 Patient visited by Gypsy Sky RN. lf1 17:12 Assisted to bathroom. Assisted with dressing. Pt escorted to waiting area, after lf1 calling for his ride. 12/06 13:07 ECG/EKG was scanned into [employer] and attached to record. gb 13:08 Rhythm Strip was scanned into [employer] and attached to record. gb 13:09 EKG-ADULT Returned. EDMS 13:09 ECG WITH READING ER PHYS Returned. EDMS 14:30 PCR was scanned into [employer] and attached to record. gb Administered Medications: 12/05 13:20 Drug: Aspirin 324 mg [aspirin 81 mg chewable tablet (4 tabs)] Route: PO; bcj Attachments: 13:08 Rhythm Strip gb Order Results: Lab Order: Basic Metabolic Profile; SPEC'M 12/05/16 13:21 Test: GLUCOSE, FASTING; Value: 129; Range: 80-110; Abnormal: Above high normal; Units: MG/DL; Status: F Test: BLOOD UREA NITROGEN; Value: 7; Range: 7-18; Units: MG/DL; Status: F Test: CREATININE FOR GFR; Value: 0.80; Range: 0.70-1.30; Units: MG/DL; Status: F Test: GLOMERULAR FILTRATION RATE; Value: > 60.0; Range: >49; Status: F Test: SODIUM LEVEL; Value: 142; Range: 136-145; Units: MEQ/L; Status: F Test: POTASSIUM SERUM; Value: 3.8; Range: 3.5-5.1; Units: MEQ/L; Status: F Test: CHLORIDE LEVEL; Value: 109; Range: 98-107; Abnormal: Above high normal; Units: MEQ/L; Status: F Test: CARBON DIOXIDE LEVEL; Value: 24; Range: 21-32; Units: MEQ/L; Status: F Test: ANION GAP; Value: 9; Range: 8-16; Units: MEQ/L; Status: F Test: CALCIUM LEVEL; Value: 8.4; Range: 8.8-10.2; Abnormal: Below low normal; Units: MG/DL; Status: F Test Note: ; Units are mL/min/1.73 m2 Chronic Kidney Disease Staging per NKF: Stage I & II GFR >=60 Normal to Mildly Decreased Stage III GFR 30-59 Moderately Decreased Stage IV GFR 15-29 Severely Decreased Stage V GFR <15 Very Little GFR Left ESRD GFR <15 on RUG WASHER Lab Order: CBC with Diff; SPEC'M 12/05/16 13:21 Test: WHITE BLOOD COUNT; Value: 3.5; Range: 4.0-10.0; Abnormal: Below low normal; Units: K/mm3; Status: F Test: RED BLOOD COUNT; Value: 3.90; Range: 4.30-6.10; Abnormal: Below low normal; Units: M/mm3; Status: F Test: HEMOGLOBIN; Value: 13.5; Range: 14.0-18.0; Abnormal: Below low normal; Units: g/dl; Status: F Test: HEMATOCRIT; Value: 40.4; Range: 42.0-52.0; Abnormal: Below low normal; Units: %; Status: F Test: MEAN CORPUSCULAR VOLUME; Value: 103.5; Range: 80.0-96.0; Abnormal: Above high normal; Units: fl; Status: F Test: MEAN CORPUSCULAR HEMOGLOBIN; Value: 34.6; Range: 27.0-33.0; Abnormal: Above high normal; Units: pg; Status: F Test: MEAN CORPUSCULAR HGB CONC; Value: 33.4; Range: 32.0-36.5; Units: g/dl; Status: F Test: RED CELL DISTRIBUTION WIDTH; Value: 12.4; Range: 11.5-14.5; Units: %; Status: F Test: PLATELET COUNT, AUTOMATED; Value: 89; Range: 150-450; Abnormal: Below low normal; Units: k/mm3; Status: F Test: NEUTROPHILS %; Value: 68.5; Range: 36.0-66.0; Abnormal: Above high normal; Units: %; Status: F Test: LYMPH %; Value: 20.4; Range: 24.0-44.0; Abnormal: Below low normal; Units: %; Status: F Test: MONO %; Value: 5.0; Range: 0.0-5.0; Units: %; Status: F Test: EOS %; Value: 3.6; Range: 0.0-3.0; Abnormal: Above high normal; Units: %; Status: F Test: BASO %; Value: 0.7; Range: 0.0-1.0; Units: %; Status: F Test: LARGE UNSTAINED CELL %; Value: 1.8; Range: 0.0-4.0; Units: %; Status: F Test: NEUTROPHILS #; Value: 2.4; Range: 1.8-7.7; Units: K/mm3; Status: F Test: LYMPH #; Value: 0.7; Range: 1.5-4.5; Abnormal: Below low normal; Units: K/mm3; Status: F Test: MONO #; Value: 0.2; Range: 0.0-0.8; Units: K/mm3; Status: F Test: EOS #; Value: 0.1; Range: 0.0-0.50; Units: K/mm3; Status: F Test: BASO #; Value: 0.0; Range: 0.0-0.2; Units: K/mm3; Status: F Test: LARGE UNSTAINED CELL #; Value: 0.1; Range: 0.0-0.4; Units: K/mm3; Status: F Lab Order: Cardiac Injury Profile; SPEC'M 12/05/16 13:21 Test: CPK CREATINE PHOSPHOKINASE; Value: 32; Range: 39-308; Abnormal: Below low normal; Units: U/L; Status: F Test: CK-MB VALUE MASS; Value: 1.0; Range: 0.0-3.6; Units: NG/ML; Status: F Test: MB/CK RELATIVE INDEX; Value: 3.12; Range: < OR =4; Status: F Test Note: ; DIAGNOSIS CRITERIA MMB ng/ml Relative Index (RI) NON-AMI < or = 5 N/A WISE ZONE > 5 < or = 4 AMI > 5 > 4 Lab Order: Troponin; [facility] 12/05/16 13:21 Test: TROPONIN I; Value: < 0.02; Range: < 0.10; Units: NG/ML; Status: F Test Note: ; Troponin I Reference Interval for Siemens Gravel Switch LOCI: 99th Percentile= 0.00-0.045 ng/ml Risk Stratification: <= 0.10 ng/ml Decreased Risk for Adverse Clinical Events. 0.10-1.50 ng/ml Increased Risk for Adverse Clinical Events. Evaluation of additional criterion and/or repeat testing in 2-6 hours is suggested to rule out myocardial damage. >= 1.50 ng/ml Indicative of Myocardial Injury. Lab Order: ETHYL ALCOHOL (ETHANOL); [facility] 12/05/16 13:21 Test: ETHYL ALCOHOL (ETHANOL); Value: < 0.003; Range: 0.000-0.010; Units: %; Status: F Lab Order: LIPASE; [facility] 12/05/16 13:21 Test: LIPASE; Value: 251; Range: 73-393; Units: U/L; Status: F Lab Order: LIVER PROFILE; [facility] 12/05/16 13:21 Test: AST/SGOT; Value: 37; Range: 15-37; Units: U/L; Status: F Test: ALT/SGPT; Value: 25; Range: 12-78; Units: U/L; Status: F Test: ALKALINE PHOSPHATASE; Value: 125; Range: 45-117; Abnormal: Above high normal; Units: U/L; Status: F Test: BILIRUBIN,TOTAL; Value: 0.9; Range: 0.2-1.0; Units: MG/DL; Status: F Test: BILIRUBIN,DIRECT; Value: 0.6; Range: 0.0-0.2; Abnormal: Above high normal; Units: MG/DL; Status: F Test: TOTAL PROTEIN; Value: 6.5; Range: 6.4-8.2; Units: GM/DL; Status: F Test: ALBUMIN; Value: 2.9; Range: 3.2-5.2; Abnormal: Below low normal; Units: GM/DL; Status: F Test: ALBUMIN/GLOBULIN RATIO; Value: 0.81; Range: 1.00-1.93; Abnormal: Below low normal; Status: F Lab Order: CARDIAC MARKER PANEL; SPEC'M 12/05/16 16:00 Test: CPK CREATINE PHOSPHOKINASE; Value: 48; Range: 39-308; Units: U/L; Status: F Test: CK-MB VALUE MASS; Value: 1.0; Range: 0.0-3.6; Units: NG/ML; Status: F Test: MB/CK RELATIVE INDEX; Value: 2.08; Range: < OR =4; Status: F Test: TROPONIN I; Value: < 0.02; Range: < 0.10; Units: NG/ML; Status: F Test Note: ; DIAGNOSIS CRITERIA MMB ng/ml Relative Index (RI) NON-AMI < or = 5 N/A WISE ZONE > 5 < or = 4 AMI > 5 > 4 Radiology Order: EKG-ADULT Test: EKG-ADULT REASON FOR EXAMINATION: Chest Pain; Stationary ECG Study; [facility] - ED; ; Test Date: 2016-12-05; Pat Name: ROMIE KEY Department:; Room: -; Gender: M Customer Relationship Specialist: tk; : 1950 Requested By: Derik Butler; Order Number: [id number] Reading MD: Socorro Basilio; Measurements; Intervals [place]; Rate: 88 P: 62; ME: 154 QRS: 18; QRSD: 83 T: 38; QT: 343; QTc: 415; Interpretive Statements; SINUS RHYTHM; LOW QRS VOLTAGE IN EXTREMITY LEADS; DELAYED R PROGRESSION; SIMILAR 11/29/16; Electronically Signed On 12-06-2016 12:51:03 EST by Socorro Basilio; Radiology Order: portable chest Test: portable chest REASON FOR EXAMINATION: Chest Pain; Clinical: Chest pain .; ; Comparison: 11/29/2016 .; ; Findings:; The mediastinum and cardiac silhouette are stable and within normal limits for; portable technique. The lung hobbs are clear without acute consolidation,; effusion, or pneumothorax. Skeletal structures are intact.; ; Impression:; No acute cardiopulmonary process appreciated.; ; ; Signed by; Lazarus Orosco MD 12/05/2016 01:36 P; Radiology Order: ECG WITH READING ER PHYS Test: ECG WITH READING ER PHYS REASON FOR EXAMINATION: CHEST PAIN; Stationary ECG Study; [facility] - ED; ; Test Date: 2016-12-05; Pat Name: ROMIE KEY Department:; Room: -; Gender: M Customer Relationship Specialist: camille; : 1950 Requested By: Derik Butler; Order Number: [id number] Reading MD: Socorro Basilio; Measurements; Intervals [place]; Rate: 75 P: 57; ME: 153 QRS: 16; QRSD: 86 T: 29; QT: 374; QTc: 419; Interpretive Statements; SINUS RHYTHM; LOW VOLTAGE LIMB; DECREASED RATE 12/05/16; Electronically Signed On 12-06-2016 12:53:48 EST by Socorro Basilio; Outcome: 12/05 16:45 Discharge ordered by Provider. pc 17:13 Discharge Assessment: Patient awake, alert and oriented x 3. No cognitive and/or lf1 functional deficits noted. Patient verbalized understanding of disposition instructions. Patient awake and alert. Oriented to person, place and time. Patient verbalized understanding of disposition instructions. Patient patient administered narcotics - no. The following High Risk Discharge criteria are identified: None. Discharged to home Friend called for transport home. Condition: improved. Discharge instructions given to patient, verbal instructions reviewed, written instructions reviewed Instructed on discharge instructions, follow up and referral plans. Demonstrated understanding of instructions, Pt was receptive of discharge instructions/ teaching. No special radiology studies were completed. Property :Personal belongings accompany Pt. 17:15 Patient left the ED. lf1 Signatures: Dispatcher [employer] EDMS Derik Frost MD MD pc Murray, Denise, Senior Accounting Associate Unit deg Baldev Smalls, RN RN Keren Doty, Reg Reg Gypsy Parra,RN RN lf1 Destiny Jones,RN RN Lori Bell,RN RN ms18 Wesly Barrera 5 Max Pozo Chart Complete MTDD
== END 2016-12-05 17:15 | disposition home or self-care (01) ==
LOC: M ED 12:27
DX: R07.9 Chest pain, unspecified (principal); E11.65 Type 2 diabetes mellitus with hyperglycemia; F10.20 Alcohol dependence, uncomplicated; Z79.84 Long term (current) use of oral hypoglycemic drugs; Z79.899 Other long term (current) drug therapy; Z88.0 Allergy status to penicillin; Z87.891 Personal history of nicotine dependence
CPT/HCPCS: 71010; 80048; 80076; 82550; 82553; 83690; 84484; 85025; 93005; 93041; 99285; G0480

== ENCOUNTER 2017-01-03 15:01 | Inpatient (IN) | payer MEDICARE ==
[~2017-01-03] VITALS: Ht 185.4 cm; Wt 80.5 kg
[2017-01-03 15:53] LABS: MEAN CORPUSCULAR HEMOGLOBIN 31.9 pg (27.0-33.0); RED CELL DISTRIBUTION WIDTH 14.4 % (11.5-14.5); WHITE BLOOD COUNT 9.7 K/mm3 (4.0-10.0)
[2017-01-03 16:12] LABS: CONTROL LINE INT CTR LINE PRESENT; METHADONE URINE NEGATIVE (NEGATIVE); TRICYCLIC ANTIDEPRESS URINE NEGATIVE (NEGATIVE)
[2017-01-03 16:27] LABS: ALBUMIN 3.7 GM/DL (3.2-5.2); ALBUMIN/GLOBULIN RATIO 1.09 (1.00-1.93); ALKALINE PHOSPHATASE 114 U/L (45-117); ALT/SGPT 37 U/L (12-78); ANION GAP 10 MEQ/L (8-16); AST/SGOT 43 U/L (15-37); BILIRUBIN,DIRECT 0.6 MG/DL (0.0-0.2); BILIRUBIN,TOTAL 1.4 MG/DL (0.2-1.0); BLOOD UREA NITROGEN 10 MG/DL (7-18); CALCIUM LEVEL 9.1 MG/DL (8.8-10.2); CARBON DIOXIDE LEVEL 25 MEQ/L (21-32); CHLORIDE LEVEL 99 MEQ/L (98-107); CREATININE FOR GFR 0.72 MG/DL (0.70-1.30); GLOMERULAR FILTRATION RATE > 60.0 (>49); GLUCOSE, FASTING 167 MG/DL (80-110); POTASSIUM SERUM 4.2 MEQ/L (3.5-5.1); SODIUM LEVEL 134 MEQ/L (136-145); TOTAL PROTEIN 7.1 GM/DL (6.4-8.2)
[2017-01-03] MEDS ORDERED: ACETAMINOPHEN 325 MG TAB As Ordered ONE (17:07)
--- NOTE | 2017-01-03 17:28 | REP ---
Clinical: Headache and altered mental status. Comparison: 11/16/2016 Findings: Age-related atrophy and microvascular ischemic changes are appreciated. The ventricles and sulci are symmetric. Blair-white differentiation is maintained. There is no evidence for acute intracranial hemorrhage, mass/mass effect, pathology or infarction. No extra-axial fluid collection. Calvarium is intact. Paranasal sinuses and mastoid air cells are clear. Impression: Age related atrophy and microvascular ischemic changes. No acute intracranial hemorrhage, infarction, or mass/mass effect. Signed by Lazarus Orosco MD 01/03/2017 05:19 P
[2017-01-03] MEDS ORDERED: LACTULOSE 20 GM/30 ML SYRUP UD As Ordered ONE (18:50)
[2017-01-03] MEDS ORDERED: GLUCOSE 4 GM CHEW TABLET PO PRN (21:00)
[2017-01-03] MEDS ORDERED: ONDANSETRON 4MG/2ML VIAL (J2405) IV PRN (21:00)
[2017-01-03] MEDS ORDERED: GLUCAGON FOR INJ 1 MG VIAL (J1610) SC PRN (21:00)
[2017-01-03] MEDS ORDERED: DEXTROSE 50% 50 ML SYRINGE IV PRN (21:00)
--- NOTE | 2017-01-03 22:12 | EDDOCDS ---
Physician Documentation [facility] Name: Romie Buchanan Age: 66 yrs Sex: Male : 1950 Arrival Date: 01/03/2017 Time: 15:01 Bed I6 / Private MD: Disposition: 01/03/17 19:19 Hospitalization ordered by Christos Aguilar for Inpatient Admission. Preliminary diagnosis are Altered mental status, unspecified, Encephalopathy, unspecified. - Bed requested for 4 [place]. - Status is Inpatient Admission. ld5 - Condition is Stable. - Problem is new. - Symptoms are unchanged. Historical: - Allergies: PENICILLINS; - Home Meds: 1. Invokana 300 mg oral tab 1 tab once daily (Last dose: 01/02/2017) 2. glimepiride 4 mg Oral tab 1 tab twice a day (Last dose: 01/02/2017) 3. magnesium oxide 500 mg Oral cap daily (Last dose: 01/02/2017) 4. metformin 1,000 mg Oral tab 1 tab 2 times per day (Last dose: 01/02/2017) - PMHx: Alcoholism; Diabetes - NIDDM: uncontrolled; - PSHx: Hernia repair; - Social history: No barriers to communication noted, The patient speaks fluent Arabic. - Family history: Not pertinent. - : The pt / caregiver states he / she is not on anticoagulants. Home medication list is obtained from the patient. - Exposure Risk Screening:: None identified. Vital Signs: 01/03 15:07 BP 137 / 89; Pulse 112; Resp 20; Temp 96.4(T); Pulse Ox 99% on R/A; jc4 19:55 BP 167 / 82; Pulse 85; Resp 18; Temp 98.1; Pulse Ox 98% ; Pain 6/10; ajs 22:02 BP 131 / 73; Pulse 91; Resp 16; Temp 97.4; Pulse Ox 97% on R/A; Pain 2/10; ld5 MDM: 15:17 Consult PFS/PSA/Retention Representative ordered. jc4 15:17 Consult PFS/PSA/Retention Representative: Patient's case requires discussion with on-call jc4 Psychiatrist ordered. 15:17 PSA/PFS to call Nursing Community Education Coordinator, to enter patient data on [place] Safe Act if patient jc4 involuntarily admitted or transferred for SI or HI ordered. 15:17 Confirm accurate psychiatric medication list and times of last dosage ordered. jc4 15:17 Detain Pt Until Medically/PFS Cleared ordered. jc4 15:18 Fingerstick Blood Sugar Ordered. EDMS 15:18 Acetaminophen Level Ordered. EDMS 15:18 Basic Metabolic Profile Ordered. EDMS 15:18 Complete Blood Count Ordered. EDMS 15:18 Drug Eval Toxicology ED Only Ordered. EDMS 15:18 Ethyl Alcohol (ethanol) Ordered. EDMS 15:18 Liver Profile Ordered. EDMS 15:18 Salicylate Level Ordered. EDMS 15:18 Thyroid Stimulating Hormone Ordered. EDMS 16:08 [facility] Payment Agreement was scanned into [email or web address] and attached to record. zo 16:49 Fingerstick Blood Sugar Reviewed. mo1 16:49 Salicylate Level Reviewed. mo1 16:49 Drug Eval Toxicology ED Only Reviewed. mo1 16:49 Ethyl Alcohol (ethanol) Reviewed. mo1 16:50 Thyroid Stimulating Hormone Reviewed. mo1 16:50 Liver Profile Reviewed. mo1 16:50 Complete Blood Count Reviewed. mo1 16:51 Basic Metabolic Profile Reviewed. mo1 16:51 Acetaminophen Level Reviewed. mo1 17:03 Acetaminophen Tablet 975 mg PO once ordered. mo1 17:03 CT Head Without Contrast Ordered. EDMS 17:07 ECG WITH READING ER PHYS+CARDIAG ordered. EDMS 17:11 Ammonia ([place] Tube on Ice, Not Pea Green) Ordered. EDMS 17:11 UA Ordered. EDMS 17:21 Financial registration complete. zo 17:50 REGULAR DIET PLASTIC RILEY+DIET ordered. EDMS 18:11 UA Reviewed. mo1 18:11 CT Head Without Contrast Reviewed. mo1 18:15 Ammonia ([place] Tube on Ice, Not Pea Green) Reviewed. mo1 18:21 Lactulose Liquid 30 ml PO once ordered. mo1 18:28 BED REQUEST+ADM ordered. EDMS 18:28 Hepatitis Profile Ordered. EDMS 19:20 Consult PFS/PSA/Retention Representative complete. jfb 19:20 Consult PFS/PSA/Retention Representative: Patient's case requires discussion with on-call jfb Psychiatrist complete. 19:20 PSA/PFS to call Nursing Community Education Coordinator, to [place] patient data [place] Safe [place] if patient jfb involuntarily admitted or transferred for SI or HI complete. 20:20 MHE Legal paperwork was scanned into [employer] and attached to record. 21:02 COMPLETE COMPHRENSIVE METABOLI Ordered. EDMS 21:02 MAGNESIUM LEVEL Ordered. EDMS 21:03 COMPLETE BLOOD COUNT Ordered. EDMS 21:03 AMMONIA Ordered. EDMS 21:03 MRI Brain W/O FOLL BY WITH Ordered. EDMS 21:06 Admission / Observation Status ordered. EDMS 21:06 CONSISTENT CARBOHYDRATES ordered. EDMS 21:07 HEMOGLOBIN A1C Ordered. EDMS Administered Medications: 17:09 Drug: Acetaminophen 975 mg [acetaminophen 325 mg tablet (3 tabs)] Route: PO; dsf 19:45 Follow up: Response: No Adverse Reaction rw1 18:53 Drug: Lactulose 30 ml [lactulose 20 gram/30 mL oral solution (30 mL)] Route: PO; asia 19:45 Follow up: Response: No Adverse Reaction rw1 Signatures: Dispatcher [employer] Baldev Santiago, RN RN David Bourgeois, PSA PSA jl Flash Jewell, Soda Room Operator Unit ml3 Geraldine Barajas Julie, PSA PSA Melba Escobedo,RN RN ld5 Edith Su, RN RN jc4 Cali Saucedo PA PA mo1 Knapp, Jean RN Carlos Bolanos LPN rw1 Mela Whitehead RN dsf The chart was reviewed and I authenticate all verbal orders and agree with the evaluation and treatment provided.Attachments: 16:08 [facility] Payment Agreement zo MTDD
--- NOTE | 2017-01-03 22:12 | EDDOCDS ---
Nurse's Notes [facility] Name: Romie Buchanan Age: 66 yrs Sex: Male : 1950 Arrival Date: 01/03/2017 Time: 15:01 Bed I6 / 28 Private MD: Diagnosis: Altered mental status, unspecified;Encephalopathy, unspecified Presentation: 01/03 15:05 Presenting complaint: Patient states: "I'm confused, have a horrible headache and my jc4 sugars are ramiro high". "I'm a mental case and they told me to come here". Mental Health Triage Level: Level 2: The patient was brought to the ED for evaluation because of a legal pickup order. Adult Sepsis Screening: Patient has new or worsening altered mentation (1 point). Patient's respiratory rate is less than 22. Systolic blood pressure is greater than 100. Patient has a qSOFA score of 1- Negative Sepsis Screen. 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 Transition of care: patient was not received from another setting of care. 15:05 Acuity: MARCELINO Level 3 jc4 15:05 Method Of Arrival: Police Car jc4 Triage Assessment: 15:14 General: Appears in no apparent distress, Behavior is flat. Pain: Unable to use pain jc4 scale. Does not appear to understand pain scale. The patient is triaged at the bedside. See Assessment in Nurses Notes section of ED record. Neurological: Reports headache confusion. 22:10 Pt Declines HIV testing. ld5 Historical: - Allergies: PENICILLINS; - Home Meds: 1. Invokana 300 mg oral tab 1 tab once daily (Last dose: 01/02/2017) 2. glimepiride 4 mg Oral tab 1 tab twice a day (Last dose: 01/02/2017) 3. magnesium oxide 500 mg Oral cap daily (Last dose: 01/02/2017) 4. metformin 1,000 mg Oral tab 1 tab 2 times per day (Last dose: 01/02/2017) - PMHx: Alcoholism; Diabetes - NIDDM: uncontrolled; - PSHx: Hernia repair; - Social history: No barriers to communication noted, The patient speaks fluent Kyrgyz. - Family history: Not pertinent. - : The pt / caregiver states he / she is not on anticoagulants. Home medication list is obtained from the patient. - Exposure Risk Screening:: None identified. Screenin:59 Screening information is obtained from the patient. Primary language is Kyrgyz. Fall jam1 risk: No risks identified. Assistance ADL's: requires no assistance with activities of daily living. Abuse/DV Screen: The patient / caregiver reports he/she is: not in a situation that causes fear, pain or injury. Nutritional screening: No deficits noted. Exposure Risk Screening: None identified. Advance Directives: Currently, there is no health care proxy. There is no active DNR order. There is no living will. There is no Power of Ambulette Driver. Advance directive information has not previously been placed in an [facility] medical record. Further advance directive information is declined. home support is adequate. Assessment: 18:04 General: Appears in no apparent distress, comfortable, Behavior is cooperative. Pain: bcj Denies pain. Neurological: Level of Consciousness is awake. Derm: Skin is pink, warm & dry. 20:06 Adult Sepsis Screening: The patient does not have new or worsening altered mentation. dsf Patient's respiratory rate is less than 22. Systolic blood pressure is greater than 100. Patient has a qSOFA score of 0- Negative Sepsis Screen. General: Appears in no apparent distress, comfortable, watching TV . Behavior is appropriate for age, cooperative. Neurological: Level of Consciousness is awake. Cardiovascular: No deficits noted. Respiratory: No deficits noted. Derm: Skin is pink, warm & dry. 21:01 General: Pt laying in bed watching TV. Water provided. Denies any other needs. Will ld5 continue to monitor. 22:02 General: Appears in no apparent distress, Pt sleeping. Aroused to voice. Reports ld5 headache of 2/10. Pt ambulated to bathroom. Steady gait. Will continue to monitor. Social Work Consult: 18:02 Social Work Note: Patient is a 66 y/o d/w/m who presented to ED via [facility] (Juliet Aviles) on , which was issued by the ED at the request of police. Juliet Aviles phoned this PSA stating that he'd received a complaint from a local business, along with concerns for patient's mental state. He reported meeting with patient, who was noted to be quite confused, however neither suicidal nor homicidal & not necessarily a danger to himself or others. He requested the issuance of the 9.45, with opinion that despite the lack of 9.41 criteria, patient was indeed in need of evaluation because of his level of confusion & being on his own. During interview with patient, he was found to be pleasant & approachable. He stated that he felt tired from working today. 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 He also stated that he never had any contact with police today & was unable to state how he arrived here. He insisted that he lives with his in [place], however was unable to recall her name or current whereabouts. He denied having any children. He reported that he has a brother, who lives in [place], [place]. Upon attempting to assess his orientation, patient was found to be oriented to person only. He was unable to identify his current whereabouts, the day of the week, calendar date, month or year. He kept reverting to having a headache, which he attributed his poor memory to. Patient's EMR was reviewed, revealing no past psychiatric hx. He had an admission to the medical floor here 11/16- for a similar altered mental status. His D/C dx included the AMS, likely due to an acute UTI. The D/C summary also noted that his sx had resolved. Following review of the EMR, Juliet Aviles was contacted for additional information. He confirmed that patient's memory during their interaction was very poor, using the example that after a lengthy conversation about the juliets background (home town, etc), it was only about 5 minutes later that patient began asking him all of the same questions, as if they'd never met. He was also able to confirm that patient does not live with, or even have a . He advised that patient was once , although that marriage ended in divorce several years ago. He stated that it was actually the [employer] in [place] that contacted him today, stating that patient has been contacting them daily, stating that he'd be late for work. There is some question that patient may have been employed there 15+ years ago, however is not employed there now. All of this information & hx was reviewed with MARLENY Saucedo, while some of patient's labs & imaging were still in process. PSA to remain available as needed. Vital Signs: 15:07 BP 137 / 89; Pulse 112; Resp 20; Temp 96.4(T); Pulse Ox 99% on R/A; jc4 19:55 BP 167 / 82; Pulse 85; Resp 18; Temp 98.1; Pulse Ox 98% ; Pain 6/10; ajs 22:02 BP 131 / 73; Pulse 91; Resp 16; Temp 97.4; Pulse Ox 97% on R/A; Pain 2/10; ld5 Vitals: 15:07 Log In time N/A- police car arrival. jc4 ED Course: 15:03 Patient visited by Otilia Bautista, Reg. lg 15:03 Patient moved to Waiting lg 15:05 Jennyfer Medeiros,RN is Primary Nurse. jc4 15:05 Edith Su, [place] is Primary Nurse. jc4 15:05 Patient moved to jc4 15:07 Triage Initiated jc4 15:15 The patient / caregiver is instructed regarding the plan of care and ED course. jc4 15:16 Patient visited by Melba Reed. lr2 15:30 Patient visited by Melba Reed. lr2 15:45 Patient visited by Melba Reed. lr2 15:47 Acetaminophen Level Sent. jam1 15:47 Basic Metabolic Profile Sent. jam1 15:47 Complete Blood Count Sent. jam1 15:47 Drug Eval Toxicology ED Only Sent. jam1 15:47 Ethyl Alcohol (ethanol) Sent. jam1 15:47 Liver Profile Sent. jam1 15:47 Salicylate Level Sent. jam1 15:47 Thyroid Stimulating Hormone Sent. jam1 15:59 Patient visited by Shefali Marti PCA. jam1 15:59 Pt greeted and oriented to ED. Patient advised of names of staff involved in care, jam1 location of call dai, wait times and NPO status. Patient has correct armband on for positive identification. Placed in psych safe attire. Bed in low position. Call light in reach. Side rails up X 1. Security observing. Door closed. pt sitting inchair at bedside at this time. 16:08 [facility] Payment Agreement was scanned into schoox and attached to record. zo 16:40 Cali Saucedo PA is PHCP. mo1 16:40 Megan Garcia MD is Attending Physician. mo1 16:45 Patient visited by Shefali Marti PCA. jam1 16:52 Patient visited by Baldev Smalls, [place]. bcj 17:02 Patient visited by Cali Saucedo PA. mo1 17:[address] dsf 17:16 Patient moved to I7 / ek2 17:18 Patient visited by Carlos Dhillon. rn1 17:35 Patient visited by David Menchaca PSA. jl 17:36 Patient moved to 31 rn1 17:43 Ammonia (Little Green Tube on Ice, Not Pea Green) Sent. jam1 17:55 UA Sent. jc4 18:02 CT Head Without Contrast Returned. EDMS 18:04 No apparent distress. Resting quietly. Awaiting disposition. bcj 18:04 Labs drawn. (by ED staff). Sent per order to lab. Urine collected. Clean catch specimen.bcj 18:06 Patient visited by Baldev Smalls, [place]. bcj 18:14 EKG done. Reviewed by Gypsy FLYNN. jam1 18:16 Patient visited by Shefali Marti PCA. jam1 18:53 Hepatitis Profile Sent. jmk 19:03 Patient moved to [facility] rn1 19:14 Patient visited by Carlos Dhillon. rn1 19:19 Christos Aguilar is Hospitalizing Provider. mo1 19:42 Patient visited by Zelalem Newman. tr 19:49 Patient moved to I6 jfb 19:56 Patient visited by Michelle Vigil. ajs 20:07 Patient visited by Mela Whitehead,[place]. dsf 20:20 E Legal paperwork was scanned into schoox and attached to record. jl 21:01 Patient visited by Melba Marinelli,RN. ld5 22:04 Patient visited by Melba Marinelli,[place]. ld5 22:09 No procedures done that require assistance. ld5 22:11 Patient visited by Melba Marinelli,[place]. ld5 22:11 No IV's were initiated during this patient's visit. ld5 Administered Medications: 17:09 Drug: Acetaminophen 975 mg [acetaminophen 325 mg tablet (3 tabs)] Route: PO; dsf 19:45 Follow up: Response: No Adverse Reaction rw1 18:53 Drug: Lactulose 30 ml [lactulose 20 gram/30 mL oral solution (30 mL)] Route: PO; asia 19:45 Follow up: Response: No Adverse Reaction rw1 Attachments: 20:20 E Legal paperwork jl Order Results: Lab Order: Acetaminophen Level; [facility]' 01/03/17 15:43 Test: ACETAMINOPHEN LEVEL; Value: < 2.0; Range: 10.0-30.0; Abnormal: Below low normal; Units: UG/ML; Status: F Lab Order: Basic Metabolic Profile; [facility]' 01/03/17 15:43 Test: GLUCOSE, FASTING; Value: 167; Range: 80-110; Abnormal: Above high normal; Units: MG/DL; Status: F Test: BLOOD UREA NITROGEN; Value: 10; Range: 7-18; Units: MG/DL; Status: F Test: CREATININE FOR GFR; Value: 0.72; Range: 0.70-1.30; Units: MG/DL; Status: F Test: GLOMERULAR FILTRATION RATE; Value: > 60.0; Range: >49; Status: F Test: SODIUM LEVEL; Value: 134; Range: 136-145; Abnormal: Below low normal; Units: MEQ/L; Status: F Test: POTASSIUM SERUM; Value: 4.2; Range: 3.5-5.1; Units: MEQ/L; Status: F Test: CHLORIDE LEVEL; Value: 99; Range: 98-107; Units: MEQ/L; Status: F Test: CARBON DIOXIDE LEVEL; Value: 25; Range: 21-32; Units: MEQ/L; Status: F Test: ANION GAP; Value: 10; Range: 8-16; Units: MEQ/L; Status: F Test: CALCIUM LEVEL; Value: 9.1; Range: 8.8-10.2; Units: MG/DL; Status: F Test Note: ; Units are mL/min/1.73 m2 Chronic Kidney Disease Staging per NKF: Stage I & II GFR >=60 Normal to Mildly Decreased Stage III GFR 30-59 Moderately Decreased Stage IV GFR 15-29 Severely Decreased Stage V GFR <15 Very Little GFR Left ESRD GFR <15 on 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 Lab Order: Complete Blood Count; [facility]' 01/03/17 15:43 Test: WHITE BLOOD COUNT; Value: 9.7; Range: 4.0-10.0; Units: K/mm3; Status: F Test: RED BLOOD COUNT; Value: 4.31; Range: 4.30-6.10; Units: M/mm3; Status: F Test: HEMOGLOBIN; Value: 13.8; Range: 14.0-18.0; Abnormal: Below low normal; Units: g/dl; Status: F Test: HEMATOCRIT; Value: 40.5; Range: 42.0-52.0; Abnormal: Below low normal; Units: %; Status: F Test: MEAN CORPUSCULAR VOLUME; Value: 94.0; Range: 80.0-96.0; Units: fl; Status: F Test: MEAN CORPUSCULAR HEMOGLOBIN; Value: 31.9; Range: 27.0-33.0; Units: pg; Status: F Test: MEAN CORPUSCULAR HGB CONC; Value: 34.0; Range: 32.0-36.5; Units: g/dl; Status: F Test: RED CELL DISTRIBUTION WIDTH; Value: 14.4; Range: 11.5-14.5; Units: %; Status: F Test: PLATELET COUNT, AUTOMATED; Value: 139; Range: 150-450; Abnormal: Below low normal; Units: k/mm3; Status: F Lab Order: Drug Eval Toxicology ED Only; SPEC'M 01/03/17 15:42 Test: AMPHETAMINES LEVEL URINE; Value: NEGATIVE; Range: NEGATIVE; Status: F Test: BARBITURATES URINE; Value: NEGATIVE; Range: NEGATIVE; Status: F Test: BENZODIAZEPINES URINE; Value: NEGATIVE; Range: NEGATIVE; Status: F Test: CANNABINOIDS URINE; Value: NEGATIVE; Range: NEGATIVE; Status: F Test: COCAINE METABOLITE URINE; Value: NEGATIVE; Range: NEGATIVE; Status: F Test: METHADONE URINE; Value: NEGATIVE; Range: NEGATIVE; Status: F Test: OPIATES URINE; Value: NEGATIVE; Range: NEGATIVE; Status: F Test: TRICYCLIC ANTIDEPRESS URINE; Value: NEGATIVE; Range: NEGATIVE; Status: F Test Note: ; ALL PRESUMPTIVE POSITIVE FINDINGS ARE UNCONFIRMED NORMAL VALUES THRESHOLD IN NG/ML AMPHETAMINES 1000 METHAMPHETAMINES 1000 BARBITURATES 300 BENZODIAZEPINES 300 CANNABINOIDS (THC) 50 COCAINE METABOLITE 300 METHADONE 300 OPIATES 300 PHENCYCLIDINE 25 TRICYCLIC ANTIDEPRESSANTS 1000 RESULTS ARE FOR MEDICAL PURPOSES ONLY. ALL URINE SPECIMENS WILL BE SAVED FOR 3 DAYS. IF CONFIRMATION OF A PRESUMPTIVE POSTIVE SCREEN RESULT IS DESIRED, CALL CHEMISTRY ([phone]) AND REQUEST URINE TO BE SENT TO REFERENCE LAB. FOR A LIST OF CLOSELY RELATED COMPOUNDS PLEASE CALL THE LAB. Lab Order: Ethyl Alcohol (ethanol); [facility] 01/03/17 15:43 Test: ETHYL ALCOHOL (ETHANOL); Value: < 0.003; Range: 0.000-0.010; Units: %; Status: F Lab Order: Liver Profile; [facility] 01/03/17 15:43 Test: AST/SGOT; Value: 43; Range: 15-37; Abnormal: Above high normal; Units: U/L; Status: F Test: ALT/SGPT; Value: 37; Range: 12-78; Units: U/L; Status: F Test: ALKALINE PHOSPHATASE; Value: 114; Range: 45-117; Units: U/L; Status: F Test: BILIRUBIN,TOTAL; Value: 1.4; Range: 0.2-1.0; Abnormal: Above high normal; Units: MG/DL; Status: F Test: BILIRUBIN,DIRECT; Value: 0.6; Range: 0.0-0.2; Abnormal: Above high normal; Units: MG/DL; Status: F Test: TOTAL PROTEIN; Value: 7.1; Range: 6.4-8.2; Units: GM/DL; Status: F Test: ALBUMIN; Value: 3.7; Range: 3.2-5.2; Units: GM/DL; Status: F Test: ALBUMIN/GLOBULIN RATIO; Value: 1.09; Range: 1.00-1.93; Status: F Lab Order: Salicylate Level; [facility] 01/03/17 15:43 Test: SALICYLATE LEVEL; Value: < 1.7; Range: 5.0-30.0; Abnormal: Below low normal; Units: MG/DL; Status: F Lab Order: Thyroid Stimulating Hormone; [facility] 01/03/17 15:43 Test: THYROID STIMULATING HORMONE; Value: 1.480; Range: 0.358-3.740; Units: uIU/ML; Status: F Lab Order: Fingerstick Blood Sugar; [facility] 01/03/17 15:10 Test: BEDSIDE GLUCOSE; Value: 174; Range: 80-115; Abnormal: Above high normal; Units: MG/DL; Status: F Lab Order: Ammonia (Little Green Tube on Ice, Not Pea Green); SPEC'M 01/03/17 17:33 Test: AMMONIA; Value: 35; Range: <32; Abnormal: Above high normal; Units: uMOL/L; Status: F Lab Order: UA; SPEC'M 01/03/17 15:37 Test: APPEARANCE, URINE; Value: CLEAR; Range: CLEAR; Status: F Test: COLOR, URINE; Value: STRAW; Range: YELLOW; Status: F Test: PH,URINE; Value: 6.0; Range: 5.0-9.0; Units: UNITS; Status: F Test: SPECIFIC GRAVITY URINE AUTO; Value: 1.003; Range: 1.002-1.035; Status: F Test: PROTEIN, URINE AUTO; Value: NEGATIVE; Range: NEGATIVE; Units: mg/dL; Status: F Test: GLUCOSE, URINE (UA) AUTO; Value: 1+; Range: NEGATIVE; Abnormal: Above high normal; Units: mg/dL; Status: F Test: KETONE, URINE AUTO; Value: NEGATIVE; Range: NEGATIVE; Units: mg/dL; Status: F Test: UROBILINOGEN, URINE AUTO; Value: 0.2; Range: 0.0-2.0; Units: mg/dL; Status: F Test: BILIRUBIN, URINE AUTO; Value: NEGATIVE; Range: NEGATIVE; Status: F Test: NITRITE, URINE AUTO; Value: NEGATIVE; Range: NEGATIVE; Status: F Test: LEUKOCYTE ESTERASE, URINE AUTO; Value: NEGATIVE; Range: NEGATIVE; Status: F Test: BLOOD, URINE BLOOD; Value: NEGATIVE; Range: NEGATIVE; Status: F Test: WBC, URINE AUTO; Value: 0; Range: 0-3; Units: /HPF; Status: F Test: RBC, URINE AUTO; Value: 1; Range: 0-3; Units: /HPF; Status: F Test: BACTERIA, URINE AUTO; Value: NEGATIVE; Range: NEGATIVE; Status: F Test: SQUAMOUS EPITHELIAL CELL UR AU; Value: 0; Range: 0-6; Units: /HPF; Status: F Test: HYALINE CAST, URINE AUTO; Value: 0; Range: 0-1; Units: /LPF; Status: F Radiology Order: CT Head Without Contrast Test: CT Head Without Contrast REASON FOR EXAMINATION: headache, confused; Clinical: Headache and altered mental status.; ; Comparison: 11/16/2016; ; Findings:; Age-related atrophy and microvascular ischemic changes are appreciated. The; ventricles and sulci are symmetric. Blair-white differentiation is maintained.; There is no evidence for acute intracranial hemorrhage, mass/mass effect,; pathology or infarction. No extra-axial fluid collection. Calvarium is intact.; Paranasal sinuses and mastoid air cells are clear.; ; Impression:; Age related atrophy and microvascular ischemic changes.; No acute intracranial hemorrhage, infarction, or mass/mass effect.; ; ; Signed by; Lazarus Orosco MD 01/03/2017 05:19 P; Outcome: 19:19 Decision to Hospitalize by Provider. mo1 22:09 Discharge Assessment: Patient awake, alert and oriented x 3. No cognitive and/or ld5 functional deficits noted. Patient verbalized understanding of disposition instructions. patient administered narcotics - no. The following High Risk Discharge criteria are identified: None. Admitted to Med/Surg accompanied by tech, via wheelchair, with chart. Condition: stable. CT Study completed. Property :Personal belongings accompany Pt. 22:11 Patient left the ED. ld5 Signatures: Dispatcher [employer] EDMS Baldev Smalls, RN RN Marcus Kim,RN RN Shefali Fierro, ED SPECIAL EDUCATION TEACHER ED SPECIAL EDUCATION TEACHER jam1 David Menchaca, PSA PSA jl Otilia Bautista, Reg Reg lg Newman, Zelalem tr Carlos Mead LPN LPN rw1 Geraldine Barajas Julie, PSA PSA Melba Escobedo,RN RN ld5 Edith Su, RN RN jc4 Mela Whitehead,RN RN Michelle Dumont Michael, PA PA mo1 Foster Martell2 Carlos Dhillon rn1 Melba Reed2 Corrections: (The following items were deleted from the chart) 18:31 18:02 Social Work Note: Patient is a 66 y/o d/w/m who presented to ED via [facility] (Juliet gene Aviles) on 9.45, which was issued by the ED at the request of police. Juliet Aviles phoned this PSA stating that he'd received a complaint from a local business, along with concerns for patient's mental state. He reported meeting with patient, who was noted to be quite confused, however neither suicidal nor homicidal & not necessarily a danger to himself or others. He requested the issuance of the 9.45, with opinion that despite the lack of 9.41 criteria, patient was indeed in need of evaluation because of his level of confusion & being on his own. During interview with patient, he was found to be pleasant & approachable. He stated that he felt tired from working today. 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 He also stated that he never had any contact with police today & was unable to state how he arrived here. He insisted that he lives with his in [place], however was unable to recall her name or current whereabouts. He denied having any children. He reported that he has a brother, who lives in [place], [place]. Upon attempting to assess his orientation, patient was found to be oriented to person only. He was unable to identify his current whereabouts, the day of the week, calendar date, month or year. He kept reverting to having a headache, which he attributed his poor memory to. Patient's EMR was reviewed, revealing no past psychiatric hx. He had an admission to the medical floor here 11/16- for a similar altered mental status. His D/C dx included the AMS, likely due to an acute UTI. The D/C summary also noted that his sx had resolved. Following review of the EMR, [place] Stefan was contacted for additional information. He confirmed that patient's memory during their interaction was very poor, using the example that after a lengthy conversation about the juliets background (home town, etc), it was only about 5 minutes later that patient began asking him all of the same questions, as if they'd never met. He was also able to confirm that patient does not live with, or even have a . He advised that patient was once , although that marriage ended in divorce several years ago. He stated that it was actually the [employer] in [place] that contacted him today, stating that patient has been contacting them daily, stating that he'd be late for work. There is some question that patient may have been employed there 15+ years ago, however is not employed there now. All of this information & hx was reviewed with MARLENY Saucedo, while some of patient's labs & imaging were still in process. PSA to remain available as needed gene MTDD
[2017-01-03 22:20] VITALS: BP 148/89
[2017-01-03] MEDS ORDERED: NS 1,000 ML IV SCH (22:30)
--- NOTE | 2017-01-03 22:43 | HPEPDOC ---
General Date of Admission Jan 03, 2017 at 20:54 Chief Complaint The patient is a 66-year-old male admitted with a reason for visit of AMS. Exam Limitations: Clinical conditions History of Present Illness 66-year-old male with past medical history of type 2 diabetes, and alcohol abuse presented to the ER after a local business called to complain about concerns for the patient's mental state. The extent of this history is limited given the patient's current confused state. According to EMS reports, the patient also stated that he did not know what he was doing, and did not know how to care for himself. He denied any suicidal or homicidal ideations. Of note , the patient did have a similar presentation to the ER and was admitted from -11/20/2016 and was treated for urinary tract infection. At this time, the patient is oriented only to person but not time, situation, or place. 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 Apparently, according to reports from EMS the patient's is , and he has not worked at the [employer] body shop for quite some time. The patient denies any complaints of fevers, chills, chest pain, shortness breath, abdominal pain, or any nausea/vomiting. In the ER, a CT scan of the head revealed no acute findings. The patient's lab work also is not suggestive of any acute abnormality. The patient will be admitted to the service of for further evaluation and management of the patient's altered mental status. Home Medications Scheduled Glimepiride (Glimepiride) Unknown Strength Tab Unknown Dose PO BID (Reported) SEE COMMENTS Metformin Hydrochloride (Glucophage) Unknown Strength Tab Unknown Dose PO BID ( Reported) Allergies Coded Allergies: No Known Drug Allergy (Verified Allergy, Unknown, 11/17/16) PER ED VISIT IN 2005 Past Medical History Medical History As noted in HPI. Social History * Smoker: non-smoker Alcohol: occationally (patient states that he drinks 2-3 beers every couple days) Drugs: denies Review of Symptoms Other systems Unable to fully unreliably obtain given the patient's clinical condition. Physical Examination General Exam: Positive: Alert, Cooperative, No Acute Distress, Other (patient only oriented to person, but not place, situation, or time) Eye Exam: Positive: EOMI, PERRLA ENT Exam: Positive: Atraumatic, Mucous membr. moist/pink Chest Exam: Positive: Clear to auscultation, Normal air movement Heart Exam: Positive: Normal S1, Normal S2, Rate Normal Abdomen Exam: Positive: Soft, Negative: Tenderness Extremity Exam: Negative: Swelling, Tenderness Neuro Exam: Positive: Cranial Nerves 3-12 NL, Normal Tone, Sensation Intact, Strength at 5/5 X4 ext Vital Signs As noted in EMR Laboratory Data Labs 24H Laboratory Tests 2 01/03/17 15:10: Bedside Glucose (Misc Panel) 174H 01/03/17 15:37: Urine Amorphous Sediment , Urine Appearance CLEAR, Urine Color STRAW, Urine pH 6.0, Urine Specific [place] 1.003, Urine Protein NEGATIVE, Urine Glucose (UA) 1+ H, Urine Ketones NEGATIVE, Urine Urobilinogen 0.2, Urine Bilirubin NEGATIVE, Urine Leukocyte Esterase NEGATIVE, Urine Bacteria (Auto) NEGATIVE, Urine Blood NEGATIVE, Urine Calcium Carbonate Cryst(Auto) , Urine Calcium Oxalate Cryst ( Auto) , Urine Calcium Phosphate Kimber[place] (Auto) , Urine Cellular Casts , Urine Cystine Crystals , Urine Granular Casts (Auto) , Urine Hyaline Casts (Auto) 0, Urine Leucine Crystals , Urine Mucus (Auto) , Urine Nitrite NEGATIVE, Urine Oval Fat Bodies (Auto) , Urine RBC (Auto) 1, Urine Renal Epithelial Cells , Urine Sperm (Auto) , Urine Squamous Epithelial Cells 0, Urine Transitional Epithelial Cells , Urine Trichomonas (Auto) , Urine Triple Phosphate Cryst (Auto ) , Urine Tyrosine Crystals , Urine Uric Acid Crystals (Auto) , Urine WBC (Auto ) 0, Urine Waxy Casts (Auto) , Urine Yeast-Like Cells (Auto) 01/03/17 15:42: Urine Amphetamine Level NEGATIVE, Urine Benzodiazepines Screen NEGATIVE, Urine Cannabinoids NEGATIVE, Urine Cocaine Metabolite NEGATIVE, Urine Opiates Screen NEGATIVE, Urine Barbiturates, Qualitative NEGATIVE, Urine Methadone Screen NEGATIVE, Urine Tricyclic Antidepressants NEGATIVE 01/03/17 15:43: Acetaminophen Level < 2.0L, Aspartate Amino Transf (AST/SGOT) 43H, Alanine Aminotransferase (ALT/SGPT) 37, Alkaline Phosphatase 114, Total Bilirubin 1.4H, Direct Bilirubin 0.6H, Albumin 3.7, Albumin/Globulin Ratio 1.09, Anion Gap 10, Calcium Level 9.1, Ethyl Alcohol Level < 0.003, Glomerular Filtration Rate > 60.0, Salicylates Level < 1.7L, Thyroid Stimulating Hormone (TSH) 1.480, Total Protein 7.1 01/03/17 17:33: Ammonia 35H 01/03/17 18:27: CBC/BMP Laboratory Tests 01/03/17 15:43 Red Blood Count 4.31, Mean Corpuscular Volume 94.0, Mean Corpuscular Hemoglobin 31.9, Mean Corpuscular Hemoglobin Concent 34.0, Red Cell Distribution Width 14.4 Plan / VTE VTE Prophylaxis Ordered?: Yes Plan Plan Encephalopathy/Altered mental status of unclear origin Admit to [facility] CT scan of the head with no acute findings Patient does not have any overt source of infectious etiology at this time based on the lab work, and clinical presentation Urinalysis not suggestive of UTI, patient does not have any respiratory symptoms but we will order a chest x-ray for completeness TSH within normal limits Ammonia level slightly elevated, given lactulose in the ER-Will repeat in the a.m. Toxicology screen negative MRI of the brain ordered Gentle IV fluid hydration Type 2 diabetes mellitus Continue insulin sliding scale History of alcohol abuse Patient states his last treatment was 4 days ago Urine toxicology screening negative DVT prophylaxis-Lovenox The patient will be admitted under the service of , who will begin to follow the patient on 01/04/2017 at 7 AM. QUINCY SANABRIA MD Jan 03, 2017 22:43
[2017-01-03] MEDS: HumaLOG INSULIN (NovoLOG) PER UNIT SC SCH (23:23)
[2017-01-04] MEDS: ACETAMINOPHEN TAB 650MG DOSE (2X325MG) PO PRN ×4 (00:09→16:16)
[2017-01-04 06:00] VITALS: BP 114/80
[2017-01-04 07:30] LABS: MEAN CORPUSCULAR HEMOGLOBIN 32.2 pg (27.0-33.0); MEAN CORPUSCULAR HGB CONC 33.7 g/dl (32.0-36.5); MEAN CORPUSCULAR VOLUME 95.6 fl (80.0-96.0); RED CELL DISTRIBUTION WIDTH 12.9 % (11.5-14.5); WHITE BLOOD COUNT 4.3 K/mm3 (4.0-10.0)
[2017-01-04 07:38] LABS: ALBUMIN 3.2 GM/DL (3.2-5.2); ALBUMIN/GLOBULIN RATIO 0.97 (1.00-1.93); ALKALINE PHOSPHATASE 90 U/L (45-117); ALT/SGPT 29 U/L (12-78); ANION GAP 11 MEQ/L (8-16); AST/SGOT 32 U/L (15-37); BILIRUBIN,TOTAL 1.5 MG/DL (0.2-1.0); BLOOD UREA NITROGEN 9 MG/DL (7-18); CALCIUM LEVEL 8.3 MG/DL (8.8-10.2); CARBON DIOXIDE LEVEL 24 MEQ/L (21-32); CHLORIDE LEVEL 107 MEQ/L (98-107); CREATININE FOR GFR 0.62 MG/DL (0.70-1.30); GLOMERULAR FILTRATION RATE > 60.0 (>49); GLUCOSE, FASTING 186 MG/DL (80-110); MAGNESIUM LEVEL 1.5 MG/DL (1.8-2.4); POTASSIUM SERUM 3.9 MEQ/L (3.5-5.1); SODIUM LEVEL 142 MEQ/L (136-145); TOTAL PROTEIN 6.5 GM/DL (6.4-8.2)
--- NOTE | 2017-01-04 07:57 | REP ---
Portable chest, 11 p.m., single AP view, patient sitting: Comparison is 12/05/2016. There are no focal infiltrates. There are no pleural effusions. There are no masses. The lung hobbs are clear. Cardiac size is normal. The yandy, mediastinum, and bony thorax are unremarkable. Impression: Essentially negative portable chest. Signed by Toro David MD 01/04/2017 07:49 A
--- NOTE | 2017-01-04 08:07 | ECGEPIP ---
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
[2017-01-04] MEDS ORDERED: ENOXAPARIN 40 MG/0.4 ML SYRINGE (J1650) SC SCH (09:00)
[2017-01-04] MEDS: HumaLOG INSULIN (NovoLOG) PER UNIT SC SCH ×4 (09:57→20:50)
--- NOTE | 2017-01-04 10:26 | REP ---
MRI BRAIN WITHOUT AND WITH CONTRAST: HISTORY: Altered mental status. CONTRAST: ProHance 17 mL. COMPARISON: 01/03/2017. Severe punctate areas of increased signal intensity on T2-weighted images are present in the periventricular and subcortical white matter. This represents small vessel ischemic disease. There is no intraparenchymal hemorrhage, infarct, mass or midline shift. There is no abnormal enhancement. The ventricular system and cortical sulci as well as subarachnoid space in the posterior fossa are dilated consistent with mild volume loss. There is no extracerebral collection. Mucosal thickening is present in the right maxillary sinus. IMPRESSION: 1. Minimal small vessel ischemic disease. 2. Mild volume loss. Signed by Rangel Cha MD 01/04/2017 10:40 A
[2017-01-04 14:00] VITALS: BP 154/95
--- NOTE | 2017-01-04 15:29 | IPNPDOC ---
Subjective General Date Seen The patient was seen on 01/04/17. Subjective Chief Complaint/HPI The patient is a 66-year-old male admitted with a reason for visit of AMS. General: Reports: ROS Unobtainable Objective Physical Examination General Exam: Positive: Cooperative, No Acute Distress, Other (patient only oriented to person, but not place, situation, or time) Eye Exam: Positive: EOMI, PERRLA ENT Exam: Positive: Atraumatic, Mucous membr. moist/pink Chest Exam: Positive: Clear to auscultation, Normal air movement Heart Exam: Positive: Normal S1, Normal S2, Rate Normal Abdomen Exam: Positive: Soft, Negative: Tenderness Extremity Exam: Negative: Swelling, Tenderness Neuro Exam: Positive: Cranial Nerves 3-12 NL, Normal Tone, Sensation Intact, Strength at 5/5 X4 ext Assessment /Plan Problems Problems: (1) Altered mental status Status: Acute Problem Text: * after nursing staff and pfs spoke with friend, pt appears to have been confused since September * unknown etiology, he has been using space heater in his trailer * will try to obtain MRI but pt may be unable to answer questions (2) ETOH abuse Status: Chronic Response to Treatment: Stable (3) Diabetes Status: Chronic Response to Treatment: Stable Plan/VTE VTE Prophylaxis Ordered?: Yes VS, I&O, 24H, Fishbone Vital Signs/I&O Vital Signs Date Time Temp Pulse Resp B/P Pulse Ox O2 Delivery O2 Flow Rate FiO2 01/04/17 06:00 98.0 89 16 114/80 95 Room Air I&O- Last 24 Hours up to 6 AM 01/04/17 05:59 Intake Total 879 ml Output Total 300 ml Balance 579 ml Laboratory Data 24H LABS Laboratory Tests 2 01/03/17 15:37: Urine Amorphous Sediment , Urine Appearance CLEAR, Urine Color STRAW, Urine pH 6.0, Urine Specific [place] 1.003, Urine Protein NEGATIVE, Urine Glucose (UA) 1+ H, Urine Ketones NEGATIVE, Urine Urobilinogen 0.2, Urine Bilirubin NEGATIVE, Urine Leukocyte Esterase NEGATIVE, Urine Bacteria (Auto) NEGATIVE, Urine Blood NEGATIVE, Urine Calcium Carbonate Cryst(Auto) , Urine Calcium Oxalate Cryst ( Auto) , Urine Calcium Phosphate Kimberley (Auto) , Urine Cellular Casts , Urine Cystine Crystals , Urine Granular Casts (Auto) , Urine Hyaline Casts (Auto) 0, Urine Leucine Crystals , Urine Mucus (Auto) , Urine Nitrite NEGATIVE, Urine Oval Fat Bodies (Auto) , Urine RBC (Auto) 1, Urine Renal Epithelial Cells , Urine Sperm (Auto) , Urine Squamous Epithelial Cells 0, Urine Transitional Epithelial Cells , Urine Trichomonas (Auto) , Urine Triple Phosphate Cryst (Auto ) , Urine Tyrosine Crystals , Urine Uric Acid Crystals (Auto) , Urine WBC (Auto ) 0, Urine Waxy Casts (Auto) , Urine Yeast-Like Cells (Auto) 01/03/17 15:42: Urine Amphetamine Level NEGATIVE, Urine Benzodiazepines Screen NEGATIVE, Urine Cannabinoids NEGATIVE, Urine Cocaine Metabolite NEGATIVE, Urine Opiates Screen NEGATIVE, Urine Barbiturates, Qualitative NEGATIVE, Urine Methadone Screen NEGATIVE, Urine Tricyclic Antidepressants NEGATIVE 01/03/17 15:43: Acetaminophen Level < 2.0L, Aspartate Amino Transf (AST/SGOT) 43H, Alanine Aminotransferase (ALT/SGPT) 37, Alkaline Phosphatase 114, Total Bilirubin 1.4H, Direct Bilirubin 0.6H, Albumin 3.7, Albumin/Globulin Ratio 1.09, Anion Gap 10, Calcium Level 9.1, Ethyl Alcohol Level < 0.003, Glomerular Filtration Rate > 60.0, Salicylates Level < 1.7L, Thyroid Stimulating Hormone (TSH) 1.480, Total Protein 7.1 01/03/17 17:33: Ammonia 35H 01/03/17 18:27: 01/03/17 22:32: Bedside Glucose (Misc Panel) 153H 01/04/17 06:34: Blood Urea Nitrogen 9, Creatinine 0.62L, Sodium Level 142#, Potassium Level 3.9 , Chloride Level 107, Carbon Dioxide Level 24, Calcium Level 8.3L, Aspartate Amino Transf (AST/SGOT) 32, Alanine Aminotransferase (ALT/SGPT) 29, Alkaline Phosphatase 90, Total Bilirubin 1.5H, Total Protein 6.5, Albumin 3.2, Albumin/ Globulin Ratio 0.97L, Ammonia 39H, Anion Gap 11, Estimated Mean Plasma Glucose 114H, Glomerular Filtration Rate > 60.0, Hemoglobin A1c 5.6, Magnesium Level 1.5L 01/04/17 12:14: Bedside Glucose (Misc Panel) 145H CBC/BMP Laboratory Tests 01/03/17 15:43 Red Blood Count 4.31, Mean Corpuscular Volume 94.0, Mean Corpuscular Hemoglobin 31.9, Mean Corpuscular Hemoglobin Concent 34.0, Red Cell Distribution Width 14.4 01/04/17 06:34 Red Blood Count 3.98 L, Mean Corpuscular Volume 95.6, Mean Corpuscular Hemoglobin 32.2, Mean Corpuscular Hemoglobin Concent 33.7, Red Cell Distribution Width 12.9, Calcium Level 8.3 L, Aspartate Amino Transf (AST/SGOT) 32, Alanine Aminotransferase (ALT/SGPT) 29, Alkaline Phosphatase 90, Total Bilirubin 1.5 H, Total Protein 6.5, Albumin 3.2 Microbiology Microbiology 01/04/17 Blood Culture, Received Pending 01/04/17 Gastrointestinal Tract Panel (PCR) - Final, Complete Enteropathogenic E.coli 01/04/17 Respiratory Virus Panel (PCR) (MATTEO), Received Pending JABARI SHEPHERD DO Jan 04, 2017 15:29
[2017-01-04] MEDS: OXAZEPAM 10 MG CAP PO SCH ×2 (16:16→21:05)
[2017-01-04] MEDS: THIAMINE 100 MG TAB PO SCH (16:17)
[2017-01-04] MEDS: FOLIC ACID 1 MG TAB PO SCH (16:17)
[2017-01-04] MEDS: MULTIVITAMINS/MINERALS THERAP 1 TAB PO SCH (16:17)
[2017-01-04 21:00] VITALS: BP 162/98
[2017-01-04 22:10] VITALS: BP 162/98
[2017-01-04] MEDS ORDERED: METOPROLOL TART 25 MG TABLET PO ONE (23:00)
[2017-01-05] MEDS: ACETAMINOPHEN TAB 650MG DOSE (2X325MG) PO PRN ×3 (02:19→12:58)
[2017-01-05 02:33] VITALS: BP 172/100
[2017-01-05] MEDS ORDERED: METOPROLOL TART 25 MG TABLET PO ONE (02:45)
[2017-01-05 04:02] VITALS: BP 166/98
[2017-01-05] MEDS: OXAZEPAM 10 MG CAP PO SCH ×3 (05:01→21:03)
[2017-01-05 06:00] VITALS: BP 132/78
[2017-01-05 06:13] LABS: MEAN CORPUSCULAR HEMOGLOBIN 32.3 pg (27.0-33.0); MEAN CORPUSCULAR HGB CONC 33.3 g/dl (32.0-36.5); MEAN CORPUSCULAR VOLUME 96.8 fl (80.0-96.0); WHITE BLOOD COUNT 3.9 K/mm3 (4.0-10.0)
[2017-01-05 06:15] LABS: ALBUMIN 2.9 GM/DL (3.2-5.2); ALBUMIN/GLOBULIN RATIO 0.83 (1.00-1.93); ALKALINE PHOSPHATASE 90 U/L (45-117); ALT/SGPT 26 U/L (12-78); ANION GAP 9 MEQ/L (8-16); AST/SGOT 26 U/L (15-37); BILIRUBIN,TOTAL 1.1 MG/DL (0.2-1.0); BLOOD UREA NITROGEN 9 MG/DL (7-18); CALCIUM LEVEL 8.6 MG/DL (8.8-10.2); CARBON DIOXIDE LEVEL 26 MEQ/L (21-32); CHLORIDE LEVEL 106 MEQ/L (98-107); CREATININE FOR GFR 0.62 MG/DL (0.70-1.30); GLOMERULAR FILTRATION RATE > 60.0 (>49); GLUCOSE, FASTING 190 MG/DL (80-110); POTASSIUM SERUM 3.8 MEQ/L (3.5-5.1); SODIUM LEVEL 141 MEQ/L (136-145); TOTAL PROTEIN 6.4 GM/DL (6.4-8.2)
[2017-01-05] MEDS: HumaLOG INSULIN (NovoLOG) PER UNIT SC SCH ×4 (07:48→20:19)
[2017-01-05 08:30] VITALS: BP 137/72
[2017-01-05] MEDS: FOLIC ACID 1 MG TAB PO SCH (08:48)
[2017-01-05] MEDS: MULTIVITAMINS/MINERALS THERAP 1 TAB PO SCH (08:49)
[2017-01-05] MEDS: METOPROLOL TART 25 MG TABLET PO SCH ×2 (08:49→08:52)
[2017-01-05] MEDS: THIAMINE 100 MG TAB PO SCH (08:49)
[2017-01-05 14:00] VITALS: BP 125/76
--- NOTE | 2017-01-05 15:18 | IPNPDOC ---
Subjective General Date Seen The patient was seen on 01/05/17. Subjective Chief Complaint/HPI The patient is a 66-year-old male admitted with a reason for visit of AMS. General: Reports: ROS Unobtainable Objective Physical Examination General Exam: Positive: Cooperative, No Acute Distress, Other (patient only oriented to person, but not place, situation, or time) Eye Exam: Positive: EOMI, PERRLA ENT Exam: Positive: Atraumatic, Mucous membr. moist/pink Chest Exam: Positive: Clear to auscultation, Normal air movement Heart Exam: Positive: Normal S1, Normal S2, Rate Normal Abdomen Exam: Positive: Soft, Negative: Tenderness Extremity Exam: Negative: Swelling, Tenderness Neuro Exam: Positive: Cranial Nerves 3-12 NL, Normal Tone, Sensation Intact, Strength at 5/5 X4 ext Assessment /Plan Problems Problems: (1) Altered mental status Status: Acute Problem Text: * after nursing staff and pfs spoke with friend, pt appears to have been confused since September * unknown etiology, he has been using space heater in his trailer * pt will likely need intermediate placement (2) ETOH abuse Status: Chronic Response to Treatment: Stable Problem Text: * continue serax, thiamine, folate, and MVI (3) Diabetes Status: Chronic Response to Treatment: Stable Problem Text: * insulin sliding scale with accu checks * consistent carb diet (4) Thrombocytopenia Status: Chronic Response to Treatment: Worse Problem Text: * likely secondary to alcohol abuse * will hold lovenox Plan/VTE VTE Prophylaxis Ordered?: Yes VS, I&O, 24H, Fishbone Vital Signs/I&O Vital Signs Date Time Temp Pulse Resp B/P Pulse Ox O2 Delivery O2 Flow Rate FiO2 01/05/17 08:52 91 138/72 01/05/17 08:30 97.3 18 98 Room Air I&O- Last 24 Hours up to 6 AM 01/05/17 06:00 Intake Total 3260 ml Output Total 675 ml Balance 2585 ml Laboratory Data 24H LABS Laboratory Tests 2 01/04/17 16:33: Bedside Glucose (Misc Panel) 261H 01/04/17 20:46: Bedside Glucose (Misc Panel) 229H 01/05/17 05:37: Blood Urea Nitrogen 9, Creatinine 0.62L, Sodium Level 141, Potassium Level 3.8, Chloride Level 106, Carbon Dioxide Level 26, Calcium Level 8.6L, Aspartate Amino Transf (AST/SGOT) 26, Alanine Aminotransferase (ALT/SGPT) 26, Alkaline Phosphatase 90, Total Bilirubin 1.1H, Total Protein 6.4, Albumin 2.9L, Albumin/ Globulin Ratio 0.83L, Ammonia 39H, Anion Gap 9, Glomerular Filtration Rate > 60.0 01/05/17 11:46: Bedside Glucose (Misc Panel) 207H CBC/BMP Laboratory Tests 01/05/17 05:37 Calcium Level 8.6 L, Aspartate Amino Transf (AST/SGOT) 26, Alanine Aminotransferase (ALT/SGPT) 26, Alkaline Phosphatase 90, Total Bilirubin 1.1 H, Total Protein 6.4, Albumin 2.9 L, Red Blood Count 3.92 L, Mean Corpuscular Volume 96.8 H, Mean Corpuscular Hemoglobin 32.3, Mean Corpuscular Hemoglobin Concent 33.3, Red Cell Distribution Width 13.0 Microbiology Microbiology 01/04/17 Blood Culture - Preliminary, Resulted No growth after 24 hours . All specim... 01/04/17 Gastrointestinal Tract Panel (PCR) - Final, Complete Enteropathogenic E.coli 01/04/17 Respiratory Virus Panel (PCR) (MATTEO) - Final, Complete JABARI SHEPHERD DO Jan 05, 2017 15:18
[2017-01-05 22:00] VITALS: BP 158/92
--- NOTE | 2017-01-05 23:11 | EDDOCDS ---
Physician Documentation [facility] Name: Romie Buchanan Age: 66 yrs Sex: Male : 1950 Arrival Date: 01/03/2017 Time: 15:01 Bed I6 / Private MD: Disposition: 01/03/17 19:19 Hospitalization ordered by Christos Aguilar for Inpatient Admission. Preliminary diagnosis are Altered mental status, unspecified, Encephalopathy, unspecified. - Bed requested for 4 [place]. - Status is Inpatient Admission. ld5 - Condition is Stable. - Problem is new. - Symptoms are unchanged. Historical: - Allergies: PENICILLINS; - Home Meds: 1. Invokana 300 mg oral tab 1 tab once daily (Last dose: 01/02/2017) 2. glimepiride 4 mg Oral tab 1 tab twice a day (Last dose: 01/02/2017) 3. magnesium oxide 500 mg Oral cap daily (Last dose: 01/02/2017) 4. metformin 1,000 mg Oral tab 1 tab 2 times per day (Last dose: 01/02/2017) - PMHx: Alcoholism; Diabetes - NIDDM: uncontrolled; - PSHx: Hernia repair; - Social history: No barriers to communication noted, The patient speaks fluent Wolof. - Family history: Not pertinent. - : The pt / caregiver states he / she is not on anticoagulants. Home medication list is obtained from the patient. - Exposure Risk Screening:: None identified. Vital Signs: 01/03 15:07 BP 137 / 89; Pulse 112; Resp 20; Temp 96.4(T); Pulse Ox 99% on R/A; jc4 19:55 BP 167 / 82; Pulse 85; Resp 18; Temp 98.1; Pulse Ox 98% ; Pain 6/10; ajs 22:02 BP 131 / 73; Pulse 91; Resp 16; Temp 97.4; Pulse Ox 97% on R/A; Pain 2/10; ld5 MDM: 15:17 Consult PFS/PSA/Motor Coach Driver ordered. jc4 15:17 Consult PFS/PSA/Motor Coach Driver: Patient's case requires discussion with on-call jc4 Psychiatrist ordered. 15:17 PSA/PFS to call Nursing Zone Maintenance Technician, to enter patient data on [place] Safe Act if patient jc4 involuntarily admitted or transferred for SI or HI ordered. 15:17 Confirm accurate psychiatric medication list and times of last dosage ordered. jc4 15:17 Detain Pt Until Medically/PFS Cleared ordered. jc4 15:18 Fingerstick Blood Sugar Ordered. EDMS 15:18 Acetaminophen Level Ordered. EDMS 15:18 Basic Metabolic Profile Ordered. EDMS 15:18 Complete Blood Count Ordered. EDMS 15:18 Drug Eval Toxicology ED Only Ordered. EDMS 15:18 Ethyl Alcohol (ethanol) Ordered. EDMS 15:18 Liver Profile Ordered. EDMS 15:18 Salicylate Level Ordered. EDMS 15:18 Thyroid Stimulating Hormone Ordered. EDMS 16:08 [facility] [place] Payment Agreement was scanned into [employer] and attached to record. zo 16:49 Fingerstick Blood Sugar Reviewed. mo1 16:49 Salicylate Level Reviewed. mo1 16:49 Drug Eval Toxicology ED Only Reviewed. mo1 16:49 Ethyl Alcohol (ethanol) Reviewed. mo1 16:50 Thyroid Stimulating Hormone Reviewed. mo1 16:50 Liver Profile Reviewed. mo1 16:50 Complete Blood Count Reviewed. mo1 16:51 Basic Metabolic Profile Reviewed. mo1 16:51 Acetaminophen Level Reviewed. mo1 17:03 Acetaminophen Tablet 975 mg PO once ordered. mo1 17:03 CT Head Without Contrast Ordered. EDMS 17:07 ECG WITH READING ER PHYS+CARDIAG ordered. EDMS 17:11 Ammonia ([place] Tube on Ice, Not Pea Green) Ordered. EDMS 17:11 UA Ordered. EDMS 17:21 Financial registration complete. zo 17:50 REGULAR DIET PLASTIC RILEY+DIET ordered. EDMS 18:11 UA Reviewed. mo1 18:11 CT Head Without Contrast Reviewed. mo1 18:15 Ammonia ([place] Tube on Ice, Not [place]a [place]) Reviewed. mo1 18:21 Lactulose Liquid 30 ml PO once ordered. mo1 18:28 BED REQUEST+ADM ordered. EDMS 18:28 Hepatitis Profile Ordered. EDMS 19:20 Consult PFS/PSA/Motor Coach Driver complete. jfb 19:20 Consult PFS/PSA/Motor Coach Driver: Patient's case requires discussion with on-call jfb Psychiatrist complete. 19:20 PSA/PFS to call Nursing Zone Maintenance Technician, to enter patient data [place] Safe [place] if patient jfb involuntarily admitted or transferred for SI or HI complete. 20:20 MHE Legal paperwork was scanned into [employer] and attached to record. 21:02 COMPLETE COMPHRENSIVE METABOLI Ordered. EDMS 21:02 MAGNESIUM LEVEL Ordered. EDMS 21:03 COMPLETE BLOOD COUNT Ordered. EDMS 21:03 AMMONIA Ordered. EDMS 21:03 MRI Brain W/O FOLL BY WITH Ordered. EDMS 21:06 Admission / Observation Status ordered. EDMS 21:06 CONSISTENT CARBOHYDRATES ordered. EDMS 21:07 HEMOGLOBIN A1C Ordered. EDMS 01/04 14:03 T-Sheet-- Draft Copy was scanned into [employer] and attached to record. gb 14:03 ECG/EKG was scanned into [employer] and attached to record. gb Administered Medications: 01/03 17:09 Drug: Acetaminophen 975 mg [acetaminophen 325 mg tablet (3 tabs)] Route: PO; dsf 19:45 Follow up: Response: No Adverse Reaction rw1 18:53 Drug: Lactulose 30 ml [lactulose 20 gram/30 mL oral solution (30 mL)] Route: PO; jmk 19:45 Follow up: Response: No Adverse Reaction rw1 Signatures: Dispatcher [employer] [facility] Baldev Smalls, RN RN David Bourgeois, PSA PSA Keren Mcdonald, Reg Reg gb Fanta, Flash, Wood [employer] E[employer] Unit ml3 Geraldine Barajas Julie, PSA PSA Melba Escobedo,RN RN ld5 Edith Su, RN RN jc4 Cali Saucedo PA PA mo1 Knapp, Jean RN jmk Workman, Robert LPN rw1 Mela Whitehead RN dsf The chart was reviewed and I authenticate all verbal orders and agree with the evaluation and treatment provided.Attachments: 16:08 [facility] Payment Agreement zo 01/04 14:03 T-Sheet-- Draft Copy gb 14:03 ECG/EKG gb Chart Complete MTDD
--- NOTE | 2017-01-05 23:12 | EDDOCDS ---
Nurse's Notes [facility] Name: Romie Buchanan Age: 66 yrs Sex: Male : 1950 Arrival Date: 01/03/2017 Time: 15:01 Bed I6 / 28 Private MD: Diagnosis: Altered mental status, unspecified;Encephalopathy, unspecified Presentation: 01/03 15:05 Presenting complaint: Patient states: "I'm confused, have a horrible headache and my jc4 sugars are ramiro high". "I'm a mental case and they told me to come here". Mental Health Triage Level: Level 2: The patient was brought to the ED for evaluation because of a legal pickup order. Adult Sepsis Screening: Patient has new or worsening altered mentation (1 point). Patient's respiratory rate is less than 22. Systolic blood pressure is greater than 100. Patient has a qSOFA score of 1- Negative Sepsis Screen. Status: Patient is not a on site services specialist or dependent. Transition of care: patient was not received from another setting of care. 15:05 Acuity: MARCELINO Level 3 jc4 15:05 Method Of Arrival: Police Car jc4 Triage Assessment: 15:14 General: Appears in no apparent distress, Behavior is flat. Pain: Unable to use pain jc4 scale. Does not appear to understand pain scale. The patient is triaged at the bedside. See Assessment in Nurses Notes section of ED record. Neurological: Reports headache confusion. 22:10 Pt Declines HIV testing. ld5 Historical: - Allergies: PENICILLINS; - Home Meds: 1. Invokana 300 mg oral tab 1 tab once daily (Last dose: 01/02/2017) 2. glimepiride 4 mg Oral tab 1 tab twice a day (Last dose: 01/02/2017) 3. magnesium oxide 500 mg Oral cap daily (Last dose: 01/02/2017) 4. metformin 1,000 mg Oral tab 1 tab 2 times per day (Last dose: 01/02/2017) - PMHx: Alcoholism; Diabetes - NIDDM: uncontrolled; - PSHx: Hernia repair; - Social history: No barriers to communication noted, The patient speaks fluent Kinyarwanda. - Family history: Not pertinent. - : The pt / caregiver states he / she is not on anticoagulants. Home medication list is obtained from the patient. - Exposure Risk Screening:: None identified. Screenin:59 Screening information is obtained from the patient. Primary language is Kinyarwanda. Fall jam1 risk: No risks identified. Assistance ADL's: requires no assistance with activities of daily living. Abuse/DV Screen: The patient / caregiver reports he/she is: not in a situation that causes fear, pain or injury. Nutritional screening: No deficits noted. Exposure Risk Screening: None identified. Advance Directives: Currently, there is no health care proxy. There is no active DNR order. There is no living will. There is no Power of Automotive Service Writer. Advance directive information has not previously been placed in an [facility] medical record. Further advance directive information is declined. home support is adequate. Assessment: 18:04 General: Appears in no apparent distress, comfortable, Behavior is cooperative. Pain: bcj Denies pain. Neurological: Level of Consciousness is awake. Derm: Skin is pink, warm & dry. 20:06 Adult Sepsis Screening: The patient does not have new or worsening altered mentation. dsf Patient's respiratory rate is less than 22. Systolic blood pressure is greater than 100. Patient has a qSOFA score of 0- Negative Sepsis Screen. General: Appears in no apparent distress, comfortable, watching TV . Behavior is appropriate for age, cooperative. Neurological: Level of Consciousness is awake. Cardiovascular: No deficits noted. Respiratory: No deficits noted. Derm: Skin is pink, warm & dry. 21:01 General: Pt laying in bed watching TV. Water provided. Denies any other needs. Will ld5 continue to monitor. 22:02 General: Appears in no apparent distress, Pt sleeping. Aroused to voice. Reports ld5 headache of 2/10. Pt ambulated to bathroom. Steady gait. Will continue to monitor. Social Work Consult: 18:02 Social Work Note: Patient is a 66 y/o d/w/m who presented to ED via [facility] (Juliet Aviles) on , which was issued by the ED at the request of police. Juliet Aviles phoned this PSA stating that he'd received a complaint from a local business, along with concerns for patient's mental state. He reported meeting with patient, who was noted to be quite confused, however neither suicidal nor homicidal & not necessarily a danger to himself or others. He requested the issuance of the 9.45, with opinion that despite the lack of 9.41 criteria, patient was indeed in need of evaluation because of his level of confusion & being on his own. During interview with patient, he was found to be pleasant & approachable. He stated that he felt tired from working today. 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 He also stated that he never had any contact with police today & was unable to state how he arrived here. He insisted that he lives with his in [place], however was unable to recall her name or current whereabouts. He denied having any children. He reported that he has a brother, who lives in [place], [place]. Upon attempting to assess his orientation, patient was found to be oriented to person only. He was unable to identify his current whereabouts, the day of the week, calendar date, month or year. He kept reverting to having a headache, which he attributed his poor memory to. Patient's EMR was reviewed, revealing no past psychiatric hx. He had an admission to the medical floor here 11/16- for a similar altered mental status. His D/C dx included the AMS, likely due to an acute UTI. The D/C summary also noted that his sx had resolved. Following review of the EMR, Juliet Aviles was contacted for additional information. He confirmed that patient's memory during their interaction was very poor, using the example that after a lengthy conversation about the juliets background (home town, etc), it was only about 5 minutes later that patient began asking him all of the same questions, as if they'd never met. He was also able to confirm that patient does not live with, or even have a . He advised that patient was once , although that marriage ended in divorce several years ago. He stated that it was actually the [employer] in [place] that contacted him today, stating that patient has been contacting them daily, stating that he'd be late for work. There is some question that patient may have been employed there 15+ years ago, however is not employed there now. All of this information & hx was reviewed with MARLENY Saucedo, while some of patient's labs & imaging were still in process. PSA to remain available as needed. Vital Signs: 15:07 BP 137 / 89; Pulse 112; Resp 20; Temp 96.4(T); Pulse Ox 99% on R/A; jc4 19:55 BP 167 / 82; Pulse 85; Resp 18; Temp 98.1; Pulse Ox 98% ; Pain 6/10; ajs 22:02 BP 131 / 73; Pulse 91; Resp 16; Temp 97.4; Pulse Ox 97% on R/A; Pain 2/10; ld5 Vitals: 15:07 Log In time N/A- police car arrival. jc4 ED Course: 15:03 Patient visited by Otilia Bautista, Reg. lg 15:03 Patient moved to Waiting lg 15:05 Jennyfer Medeiros,RN is Primary Nurse. jc4 15:05 Edith Su, [place] is Primary Nurse. jc4 15:05 Patient moved to jc4 15:07 Triage Initiated jc4 15:15 The patient / caregiver is instructed regarding the plan of care and ED course. jc4 15:16 Patient visited by Melba Reed. lr2 15:30 Patient visited by Melba Reed. lr2 15:45 Patient visited by Melba Reed. lr2 15:47 Acetaminophen Level Sent. jam1 15:47 Basic Metabolic Profile Sent. jam1 15:47 Complete Blood Count Sent. jam1 15:47 Drug Eval Toxicology ED Only Sent. jam1 15:47 Ethyl Alcohol (ethanol) Sent. jam1 15:47 Liver Profile Sent. jam1 15:47 Salicylate Level Sent. jam1 15:47 Thyroid Stimulating Hormone Sent. jam1 15:59 Patient visited by Shefali Marti PCA. jam1 15:59 Pt greeted and oriented to ED. Patient advised of names of staff involved in care, jam1 location of call dai, wait times and NPO status. Patient has correct armband on for positive identification. Placed in psych safe attire. Bed in low position. Call light in reach. Side rails up X 1. Security observing. Door closed. pt sitting inchair at bedside at this time. 16:08 [facility] Payment Agreement was scanned into [employer] and attached to record. zo 16:40 Cali Saucedo PA is PHCP. mo1 16:40 Megan Garcia MD is Attending Physician. mo1 16:45 Patient visited by Shefali Marti PCA. jam1 16:52 Patient visited by Baldev Smalls, [place]. bcj 17:02 Patient visited by Cali Saucedo PA. mo1 17:[address] dsf 17:16 Patient moved to I7 / ek2 17:18 Patient visited by Carlos Dhillon. rn1 17:35 Patient visited by David Menchaca PSA. jl 17:36 Patient moved to 31 rn1 17:43 Ammonia (Little Green Tube on Ice, Not Pea Green) Sent. jam1 17:55 UA Sent. jc4 18:02 CT Head Without Contrast Returned. EDMS 18:04 No apparent distress. Resting quietly. Awaiting disposition. bcj 18:04 Labs drawn. (by ED staff). Sent per order to lab. Urine collected. Clean catch specimen.bcj 18:06 Patient visited by Baldev Smalls, [place]. bcj 18:14 EKG done. Reviewed by Gypsy FLYNN. jam1 18:16 Patient visited by Shefali Marti PCA. jam1 18:53 Hepatitis Profile Sent. jmk 19:03 Patient moved to [facility] rn1 19:14 Patient visited by Carlos Dhillon. rn1 19:19 Christos Aguilar is Hospitalizing Provider. mo1 19:42 Patient visited by Zelalem Newman. tr 19:49 Patient moved to I6 jfb 19:56 Patient visited by Michelle Vigil. ajs 20:07 Patient visited by Mela Whitehead,RN. dsf 20:20 E Legal paperwork was scanned into [employer] and attached to record. jl 21:01 Patient visited by Melba Marinelli,RN. ld5 22:04 Patient visited by Melba Marinelli,RN. ld5 22:09 No procedures done that require assistance. ld5 22:11 Patient visited by Melba Marinelli,[place]. ld5 22:11 No IV's were initiated during this patient's visit. ld5 01/04 14:03 T-Sheet-- Draft Copy was scanned into [employer] and attached to record. gb 14:03 ECG/EKG was scanned into [employer] and attached to record. gb Administered Medications: 01/03 17:09 Drug: Acetaminophen 975 mg [acetaminophen 325 mg tablet (3 tabs)] Route: PO; dsf 19:45 Follow up: Response: No Adverse Reaction rw1 18:53 Drug: Lactulose 30 ml [lactulose 20 gram/30 mL oral solution (30 mL)] Route: PO; jmk 19:45 Follow up: Response: No Adverse Reaction rw1 Attachments: 20:20 E Legal paperwork jl Order Results: Lab Order: Acetaminophen Level; SPEC'M 01/03/17 15:43 Test: ACETAMINOPHEN LEVEL; Value: < 2.0; Range: 10.0-30.0; Abnormal: Below low normal; Units: UG/ML; Status: F Lab Order: Basic Metabolic Profile; SPEC'M 01/03/17 15:43 Test: GLUCOSE, FASTING; Value: 167; Range: 80-110; Abnormal: Above high normal; Units: MG/DL; Status: F Test: BLOOD UREA NITROGEN; Value: 10; Range: 7-18; Units: MG/DL; Status: F Test: CREATININE FOR GFR; Value: 0.72; Range: 0.70-1.30; Units: MG/DL; Status: F Test: GLOMERULAR FILTRATION RATE; Value: > 60.0; Range: >49; Status: F Test: SODIUM LEVEL; Value: 134; Range: 136-145; Abnormal: Below low normal; Units: MEQ/L; Status: F Test: POTASSIUM SERUM; Value: 4.2; Range: 3.5-5.1; Units: MEQ/L; Status: F Test: CHLORIDE LEVEL; Value: 99; Range: 98-107; Units: MEQ/L; Status: F Test: CARBON DIOXIDE LEVEL; Value: 25; Range: 21-32; Units: MEQ/L; Status: F Test: ANION GAP; Value: 10; Range: 8-16; Units: MEQ/L; Status: F Test: CALCIUM LEVEL; Value: 9.1; Range: 8.8-10.2; Units: MG/DL; Status: F Test Note: ; Units are mL/min/1.73 m2 Chronic Kidney Disease Staging per NKF: Stage I & II GFR >=60 Normal to Mildly Decreased Stage III GFR 30-59 Moderately Decreased Stage IV GFR 15-29 Severely Decreased Stage V GFR <15 Very Little GFR Left ESRD GFR <15 on [employer] Lab Order: Complete Blood Count; SPEC'M 01/03/17 15:43 Test: WHITE BLOOD COUNT; Value: 9.7; Range: 4.0-10.0; Units: K/mm3; Status: F Test: RED BLOOD COUNT; Value: 4.31; Range: 4.30-6.10; Units: M/mm3; Status: F Test: HEMOGLOBIN; Value: 13.8; Range: 14.0-18.0; Abnormal: Below low normal; Units: g/dl; Status: F Test: HEMATOCRIT; Value: 40.5; Range: 42.0-52.0; Abnormal: Below low normal; Units: %; Status: F Test: MEAN CORPUSCULAR VOLUME; Value: 94.0; Range: 80.0-96.0; Units: fl; Status: F Test: MEAN CORPUSCULAR HEMOGLOBIN; Value: 31.9; Range: 27.0-33.0; Units: pg; Status: F Test: MEAN CORPUSCULAR HGB CONC; Value: 34.0; Range: 32.0-36.5; Units: g/dl; Status: F Test: RED CELL DISTRIBUTION WIDTH; Value: 14.4; Range: 11.5-14.5; Units: %; Status: F Test: PLATELET COUNT, AUTOMATED; Value: 139; Range: 150-450; Abnormal: Below low normal; Units: k/mm3; Status: F Lab Order: Drug Eval Toxicology ED Only; SPEC'M 01/03/17 15:42 Test: AMPHETAMINES LEVEL URINE; Value: NEGATIVE; Range: NEGATIVE; Status: F Test: BARBITURATES URINE; Value: NEGATIVE; Range: NEGATIVE; Status: F Test: BENZODIAZEPINES URINE; Value: NEGATIVE; Range: NEGATIVE; Status: F Test: CANNABINOIDS URINE; Value: NEGATIVE; Range: NEGATIVE; Status: F Test: COCAINE METABOLITE URINE; Value: NEGATIVE; Range: NEGATIVE; Status: F Test: METHADONE URINE; Value: NEGATIVE; Range: NEGATIVE; Status: F Test: OPIATES URINE; Value: NEGATIVE; Range: NEGATIVE; Status: F Test: TRICYCLIC ANTIDEPRESS URINE; Value: NEGATIVE; Range: NEGATIVE; Status: F Test Note: ; ALL PRESUMPTIVE POSITIVE FINDINGS ARE UNCONFIRMED NORMAL VALUES THRESHOLD IN NG/ML AMPHETAMINES 1000 METHAMPHETAMINES 1000 BARBITURATES 300 BENZODIAZEPINES 300 CANNABINOIDS (THC) 50 COCAINE METABOLITE 300 METHADONE 300 OPIATES 300 PHENCYCLIDINE 25 TRICYCLIC ANTIDEPRESSANTS 1000 RESULTS ARE FOR MEDICAL PURPOSES ONLY. ALL URINE SPECIMENS WILL BE SAVED FOR 3 DAYS. IF CONFIRMATION OF A PRESUMPTIVE POSTIVE SCREEN RESULT IS DESIRED, CALL CHEMISTRY ([phone]) AND REQUEST URINE TO BE SENT TO REFERENCE LAB. FOR A LIST OF CLOSELY RELATED COMPOUNDS PLEASE CALL THE LAB. Lab Order: Ethyl Alcohol (ethanol); [facility] 01/03/17 15:43 Test: ETHYL ALCOHOL (ETHANOL); Value: < 0.003; Range: 0.000-0.010; Units: %; Status: F Lab Order: Liver Profile; 01/03/17 15:43 Test: AST/SGOT; Value: 43; Range: 15-37; Abnormal: Above high normal; Units: U/L; Status: F Test: ALT/SGPT; Value: 37; Range: 12-78; Units: U/L; Status: F Test: ALKALINE PHOSPHATASE; Value: 114; Range: 45-117; Units: U/L; Status: F Test: BILIRUBIN,TOTAL; Value: 1.4; Range: 0.2-1.0; Abnormal: Above high normal; Units: MG/DL; Status: F Test: BILIRUBIN,DIRECT; Value: 0.6; Range: 0.0-0.2; Abnormal: Above high normal; Units: MG/DL; Status: F Test: TOTAL PROTEIN; Value: 7.1; Range: 6.4-8.2; Units: GM/DL; Status: F Test: ALBUMIN; Value: 3.7; Range: 3.2-5.2; Units: GM/DL; Status: F Test: ALBUMIN/GLOBULIN RATIO; Value: 1.09; Range: 1.00-1.93; Status: F Lab Order: Salicylate Level; [facility] 15:43 Test: SALICYLATE LEVEL; Value: < 1.7; Range: 5.0-30.0; Abnormal: Below low normal; Units: MG/DL; Status: F Lab Order: Thyroid Stimulating Hormone; 01/03/17 15:43 Test: THYROID STIMULATING HORMONE; Value: 1.480; Range: 0.358-3.740; Units: uIU/ML; Status: F Lab Order: Fingerstick Blood Sugar; SPEC'M 01/03/17 15:10 Test: BEDSIDE GLUCOSE; Value: 174; Range: 80-115; Abnormal: Above high normal; Units: MG/DL; Status: F Lab Order: Ammonia (Little Green Tube on Ice, Not Pea Green); SPEC'M 01/03/17 17:33 Test: AMMONIA; Value: 35; Range: <32; Abnormal: Above high normal; Units: uMOL/L; Status: F Lab Order: UA; SPEC'M 01/03/17 15:37 Test: APPEARANCE, URINE; Value: CLEAR; Range: CLEAR; Status: F Test: COLOR, URINE; Value: STRAW; Range: YELLOW; Status: F Test: PH,URINE; Value: 6.0; Range: 5.0-9.0; Units: UNITS; Status: F Test: SPECIFIC GRAVITY URINE AUTO; Value: 1.003; Range: 1.002-1.035; Status: F Test: PROTEIN, URINE AUTO; Value: NEGATIVE; Range: NEGATIVE; Units: mg/dL; Status: F Test: GLUCOSE, URINE (UA) AUTO; Value: 1+; Range: NEGATIVE; Abnormal: Above high normal; Units: mg/dL; Status: F Test: KETONE, URINE AUTO; Value: NEGATIVE; Range: NEGATIVE; Units: mg/dL; Status: F Test: UROBILINOGEN, URINE AUTO; Value: 0.2; Range: 0.0-2.0; Units: mg/dL; Status: F Test: BILIRUBIN, URINE AUTO; Value: NEGATIVE; Range: NEGATIVE; Status: F Test: NITRITE, URINE AUTO; Value: NEGATIVE; Range: NEGATIVE; Status: F Test: LEUKOCYTE ESTERASE, URINE AUTO; Value: NEGATIVE; Range: NEGATIVE; Status: F Test: BLOOD, URINE BLOOD; Value: NEGATIVE; Range: NEGATIVE; Status: F Test: WBC, URINE AUTO; Value: 0; Range: 0-3; Units: /HPF; Status: F Test: RBC, URINE AUTO; Value: 1; Range: 0-3; Units: /HPF; Status: F Test: BACTERIA, URINE AUTO; Value: NEGATIVE; Range: NEGATIVE; Status: F Test: SQUAMOUS EPITHELIAL CELL UR AU; Value: 0; Range: 0-6; Units: /HPF; Status: F Test: HYALINE CAST, URINE AUTO; Value: 0; Range: 0-1; Units: /LPF; Status: F Radiology Order: CT Head Without Contrast Test: CT Head Without Contrast REASON FOR EXAMINATION: headache, confused; Clinical: Headache and altered mental status.; ; Comparison: 11/16/2016; ; Findings:; Age-related atrophy and microvascular ischemic changes are appreciated. The; ventricles and sulci are symmetric. Blair-white differentiation is maintained.; There is no evidence for acute intracranial hemorrhage, mass/mass effect,; pathology or infarction. No extra-axial fluid collection. Calvarium is intact.; Paranasal sinuses and mastoid air cells are clear.; ; Impression:; Age related atrophy and microvascular ischemic changes.; No acute intracranial hemorrhage, infarction, or mass/mass effect.; ; ; Signed by; Lazarus Orosco MD 01/03/2017 05:19 P; Outcome: 01/03 19:19 Decision to Hospitalize by Provider. mo1 22:09 Discharge Assessment: Patient awake, alert and oriented x 3. No cognitive and/or ld5 functional deficits noted. Patient verbalized understanding of disposition instructions. patient administered narcotics - no. The following High Risk Discharge criteria are identified: None. Admitted to Med/Surg accompanied by tech, via wheelchair, with chart. Condition: stable. CT Study completed. Property :Personal belongings accompany Pt. 22:11 Patient left the ED. ld5 Signatures: Dispatcher [employer] EDCO Baldev Smalls RN RN bcj Knapp, Jean,RN RN Shefali Fierro, THADDEUS DIGITAL PHOTO PRINTER jam1 David Menchaca, PSA PSA jl Keren Mcgovern, Reg Reg gb Ganter, LoriLee, Reg Reg lg Newman, Zelalem tr Carlos Mead LPN INSPECTOR AIR CARRIER rw1 Geraldine Barajas Julie, PSA PSA jfMelba Viera RN RN ld5 Edith Su RN RN vi4 Mela Whitehead RN RN dsf Michelle Vigil Michael, PA PA mo1 Foster Martell ek2 Carlos Dhillon rn1 Melba Reed lr2 Corrections: (The following items were deleted from the chart) 18:31 18:02 Social Work Note: Patient is a 66 y/o d/w/m who presented to ED via [facility] (Juliet Aviles) on .45, which was issued by the ED at the request of police. Juliet Aviles phoned this PSA stating that he'd received a complaint from a local business, along with concerns for patient's mental state. He reported meeting with patient, who was noted to be quite confused, however neither suicidal nor homicidal & not necessarily a danger to himself or others. He requested the issuance of the 9.45, with opinion that despite the lack of 9.41 criteria, patient was indeed in need of evaluation because of his level of confusion & being on his own. During interview with patient, he was found to be pleasant & approachable. He stated that he felt tired from working today. 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 He also stated that he never had any contact with police today & was unable to state how he arrived here. He insisted that he lives with his in [place], however was unable to recall her name or current whereabouts. He denied having any children. He reported that he has a brother, who lives in [place], [place]. Upon attempting to assess his orientation, patient was found to be oriented to person only. He was unable to identify his current whereabouts, the day of the week, calendar date, month or year. He kept reverting to having a headache, which he attributed his poor memory to. Patient's EMR was reviewed, revealing no past psychiatric hx. He had an admission to the medical floor here 11/16- for a similar altered mental status. His D/C dx included the AMS, likely due to an acute UTI. The D/C summary also noted that his sx had resolved. Following review of the EMR, Juliet Aviles was contacted for additional information. He confirmed that patient's memory during their interaction was very poor, using the example that after a lengthy conversation about the troopers background (home town, etc), it was only about 5 minutes later that patient began asking him all of the same questions, as if they'd never met. He was also able to confirm that patient does not live with, or even have a . He advised that patient was once , although that marriage ended in divorce several years ago. He stated that it was actually the [employer] in [place] that contacted him today, stating that patient has been contacting them daily, stating that he'd be late for work. There is some question that patient may have been employed there 15+ years ago, however is not employed there now. All of this information & hx was reviewed with MARLENY Saucedo, while some of patient's labs & imaging were still in process. PSA to remain available as needed gene Chart Complete MTDD
--- NOTE | 2017-01-05 23:12 | EDDOCDS ---
Physician Documentation [facility] Name: Romie Buchanan Age: 66 yrs Sex: Male : 1950 Arrival Date: 01/03/2017 Time: 15:01 Bed I6 / Private MD: Disposition: 01/03/17 19:19 Hospitalization ordered by Christos Aguilar for Inpatient Admission. Preliminary diagnosis are Altered mental status, unspecified, Encephalopathy, unspecified. - Bed requested for 4 [place]. - Status is Inpatient Admission. ld5 - Condition is Stable. - Problem is new. - Symptoms are unchanged. Historical: - Allergies: PENICILLINS; - Home Meds: 1. Invokana 300 mg oral tab 1 tab once daily (Last dose: 01/02/2017) 2. glimepiride 4 mg Oral tab 1 tab twice a day (Last dose: 01/02/2017) 3. magnesium oxide 500 mg Oral cap daily (Last dose: 01/02/2017) 4. metformin 1,000 mg Oral tab 1 tab 2 times per day (Last dose: 01/02/2017) - PMHx: Alcoholism; Diabetes - NIDDM: uncontrolled; - PSHx: Hernia repair; - Social history: No barriers to communication noted, The patient speaks fluent Maori. - Family history: Not pertinent. - : The pt / caregiver states he / she is not on anticoagulants. Home medication list is obtained from the patient. - Exposure Risk Screening:: None identified. Vital Signs: 01/03 15:07 BP 137 / 89; Pulse 112; Resp 20; Temp 96.4(T); Pulse Ox 99% on R/A; jc4 19:55 BP 167 / 82; Pulse 85; Resp 18; Temp 98.1; Pulse Ox 98% ; Pain 6/10; ajs 22:02 BP 131 / 73; Pulse 91; Resp 16; Temp 97.4; Pulse Ox 97% on R/A; Pain 2/10; ld5 MDM: 15:17 Consult PFS/PSA/Production Generalist ordered. jc4 15:17 Consult PFS/PSA/Production Generalist: Patient's case requires discussion with on-call jc4 Psychiatrist ordered. 15:17 PSA/PFS to call Nursing Acoustical Tile Carpenters Supervisor, to enter patient data on [place] Safe [place] if patient jc4 involuntarily admitted or transferred for SI or HI ordered. 15:17 Confirm accurate psychiatric medication list and times of last dosage ordered. jc4 15:17 Detain Pt Until Medically/PFS Cleared ordered. jc4 15:18 Fingerstick Blood Sugar Ordered. EDMS 15:18 Acetaminophen Level Ordered. EDMS 15:18 Basic Metabolic Profile Ordered. EDMS 15:18 Complete Blood Count Ordered. EDMS 15:18 Drug Eval Toxicology ED Only Ordered. EDMS 15:18 Ethyl Alcohol (ethanol) Ordered. EDMS 15:18 Liver Profile Ordered. EDMS 15:18 Salicylate Level Ordered. EDMS 15:18 Thyroid Stimulating Hormone Ordered. EDMS 16:08 [facility] [place] was scanned into [employer] and attached to record. zo 16:49 Fingerstick Blood Sugar Reviewed. mo1 16:49 Salicylate Level Reviewed. mo1 16:49 Drug Eval Toxicology ED Only Reviewed. mo1 16:49 Ethyl Alcohol (ethanol) Reviewed. mo1 16:50 Thyroid Stimulating Hormone Reviewed. mo1 16:50 Liver Profile Reviewed. mo1 16:50 Complete Blood Count Reviewed. mo1 16:51 Basic Metabolic Profile Reviewed. mo1 16:51 Acetaminophen Level Reviewed. mo1 17:03 Acetaminophen Tablet 975 mg PO once ordered. mo1 17:03 CT Head Without Contrast Ordered. EDMS 17:07 ECG WITH READING ER PHYS+CARDIAG ordered. EDMS 17:11 Ammonia (Little Green Tube on Ice, Not Pea Green) Ordered. EDMS 17:11 UA Ordered. EDMS 17:21 Financial registration complete. zo 17:50 REGULAR DIET PLASTIC RILEY+DIET ordered. EDMS 18:11 UA Reviewed. mo1 18:11 CT Head Without Contrast Reviewed. mo1 18:15 Ammonia (Little Green Tube on Ice, Not Pea Green) Reviewed. mo1 18:21 Lactulose Liquid 30 ml PO once ordered. mo1 18:28 BED REQUEST+ADM ordered. EDMS 18:28 Hepatitis Profile Ordered. EDMS 19:20 Consult PFS/PSA/Production Generalist complete. jfb 19:20 Consult PFS/PSA/Production Generalist: Patient's case requires discussion with on-call jfb Psychiatrist complete. 19:20 PSA/PFS to call Nursing Acoustical Tile Carpenters Supervisor, to [place] patient data [place] if patient jfb involuntarily admitted or transferred for SI or HI complete. 20:20 [facility] Legal paperwork was scanned into [employer] and attached to record. 21:02 COMPLETE COMPHRENSIVE METABOLI Ordered. EDMS 21:02 MAGNESIUM LEVEL Ordered. EDMS 21:03 COMPLETE BLOOD COUNT Ordered. EDMS 21:03 AMMONIA Ordered. EDMS 21:03 MRI Brain W/O FOLL BY WITH Ordered. EDMS 21:06 Admission / Observation Status ordered. EDMS 21:06 CONSISTENT CARBOHYDRATES ordered. EDMS 21:07 HEMOGLOBIN A1C Ordered. EDMS 01/04 14:03 T-Sheet-- Draft Copy was scanned into [employer] and attached to record. gb 14:03 ECG/EKG was scanned into [employer] and attached to record. gb Administered Medications: 01/03 17:09 Drug: Acetaminophen 975 mg [acetaminophen 325 mg tablet (3 tabs)] Route: PO; dsf 19:45 Follow up: Response: No Adverse Reaction rw1 18:53 Drug: Lactulose 30 ml [lactulose 20 gram/30 mL oral solution (30 mL)] Route: PO; jmk 19:45 Follow up: Response: No Adverse Reaction rw1 Signatures: Dispatcher [employer] [facility] Baldev Smalls, RN RN David Bourgeois, PSA PSA Keren Mcdonald, Reg Reg gb Fanta, Flash, Land Examiner Unit ml3 Geraldine Barajas Julie, PSA PSA Melba Escobedo,RN RN ld5 Edith Su, RN RN jc4 Cali Sacuedo PA PA mo1 Knapp, Jean RN jmk Workman, Robert LPN rw1 Mela Whitehead RN dsf The chart was reviewed and I authenticate all verbal orders and agree with the evaluation and treatment provided.Attachments: 16:08 [facility] Payment Agreement zo 01/04 14:03 T-Sheet-- Draft Copy gb 14:03 ECG/EKG gb Chart Complete MTDD
[2017-01-06] MEDS: OXAZEPAM 10 MG CAP PO SCH ×3 (05:33→21:43)
[2017-01-06 06:00] VITALS: BP 155/93
[2017-01-06 06:45] LABS: MEAN CORPUSCULAR HGB CONC 33.9 g/dl (32.0-36.5); MEAN CORPUSCULAR VOLUME 97.5 fl (80.0-96.0); RED CELL DISTRIBUTION WIDTH 13.2 % (11.5-14.5); WHITE BLOOD COUNT 3.9 K/mm3 (4.0-10.0)
[2017-01-06 07:02] LABS: ALBUMIN 3.2 GM/DL (3.2-5.2); ALBUMIN/GLOBULIN RATIO 0.91 (1.00-1.93); ALKALINE PHOSPHATASE 91 U/L (45-117); ALT/SGPT 25 U/L (12-78); ANION GAP 10 MEQ/L (8-16); AST/SGOT 24 U/L (15-37); BILIRUBIN,TOTAL 0.9 MG/DL (0.2-1.0); BLOOD UREA NITROGEN 9 MG/DL (7-18); CALCIUM LEVEL 8.8 MG/DL (8.8-10.2); CARBON DIOXIDE LEVEL 26 MEQ/L (21-32); CHLORIDE LEVEL 105 MEQ/L (98-107); CREATININE FOR GFR 0.66 MG/DL (0.70-1.30); GLOMERULAR FILTRATION RATE > 60.0 (>49); GLUCOSE, FASTING 204 MG/DL (80-110); POTASSIUM SERUM 3.8 MEQ/L (3.5-5.1); SODIUM LEVEL 141 MEQ/L (136-145); TOTAL PROTEIN 6.7 GM/DL (6.4-8.2)
[2017-01-06] MEDS: HumaLOG INSULIN (NovoLOG) PER UNIT SC SCH ×4 (08:16→21:00)
[2017-01-06] MEDS: MULTIVITAMINS/MINERALS THERAP 1 TAB PO SCH (08:17)
[2017-01-06] MEDS: METOPROLOL TART 25 MG TABLET PO SCH (08:17)
[2017-01-06] MEDS: THIAMINE 100 MG TAB PO SCH (08:17)
[2017-01-06] MEDS: FOLIC ACID 1 MG TAB PO SCH (08:17)
[2017-01-06] MEDS: ACETAMINOPHEN TAB 650MG DOSE (2X325MG) PO PRN ×2 (13:12→21:43)
[2017-01-06 14:00] VITALS: BP 139/83
[2017-01-06 22:00] VITALS: BP 165/84
[2017-01-07 06:00] VITALS: BP 157/82
[2017-01-07] MEDS: OXAZEPAM 10 MG CAP PO SCH ×3 (06:10→20:26)
[2017-01-07] MEDS: ACETAMINOPHEN TAB 650MG DOSE (2X325MG) PO PRN ×2 (06:13→13:05)
[2017-01-07 06:15] LABS: MEAN CORPUSCULAR HEMOGLOBIN 32.6 pg (27.0-33.0); MEAN CORPUSCULAR HGB CONC 34.5 g/dl (32.0-36.5); MEAN CORPUSCULAR VOLUME 94.7 fl (80.0-96.0); RED CELL DISTRIBUTION WIDTH 12.7 % (11.5-14.5); WHITE BLOOD COUNT 4.3 K/mm3 (4.0-10.0)
[2017-01-07 06:26] LABS: ALBUMIN 3.2 GM/DL (3.2-5.2); ALBUMIN/GLOBULIN RATIO 0.97 (1.00-1.93); ALKALINE PHOSPHATASE 95 U/L (45-117); ALT/SGPT 27 U/L (12-78); ANION GAP 9 MEQ/L (8-16); AST/SGOT 27 U/L (15-37); BILIRUBIN,TOTAL 0.9 MG/DL (0.2-1.0); BLOOD UREA NITROGEN 12 MG/DL (7-18); CALCIUM LEVEL 8.7 MG/DL (8.8-10.2); CARBON DIOXIDE LEVEL 27 MEQ/L (21-32); CHLORIDE LEVEL 105 MEQ/L (98-107); CREATININE FOR GFR 0.67 MG/DL (0.70-1.30); GLOMERULAR FILTRATION RATE > 60.0 (>49); GLUCOSE, FASTING 208 MG/DL (80-110); POTASSIUM SERUM 4.1 MEQ/L (3.5-5.1); SODIUM LEVEL 141 MEQ/L (136-145); TOTAL PROTEIN 6.5 GM/DL (6.4-8.2)
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
[2017-01-07] MEDS: FOLIC ACID 1 MG TAB PO SCH (09:04)
[2017-01-07] MEDS: THIAMINE 100 MG TAB PO SCH (09:04)
[2017-01-07] MEDS: HumaLOG INSULIN (NovoLOG) PER UNIT SC SCH ×4 (09:04→20:30)
[2017-01-07] MEDS: METOPROLOL TART 25 MG TABLET PO SCH (09:04)
[2017-01-07] MEDS: MULTIVITAMINS/MINERALS THERAP 1 TAB PO SCH (09:04)
--- NOTE | 2017-01-07 13:40 | IPNPDOC ---
Subjective Date Seen The patient was seen on 01/07/17. Subjective Chief Complaint/HPI The patient is a 66-year-old male admitted with a reason for visit of AMS. Events since last encounter pt seen and examined, oriented to person and place but not to time Objective Physical Examination General Exam: Positive: Cooperative, No Acute Distress, Other (patient only oriented to person, but not place, situation, or time) Eye Exam: Positive: EOMI, PERRLA ENT Exam: Positive: Atraumatic, Mucous membr. moist/pink Chest Exam: Positive: Clear to auscultation, Normal air movement Heart Exam: Positive: Normal S1, Normal S2, Rate Normal Abdomen Exam: Positive: Soft, Negative: Tenderness Extremity Exam: Negative: Swelling, Tenderness Neuro Exam: Positive: Cranial Nerves 3-12 NL, Normal Tone, Sensation Intact, Strength at 5/5 X4 ext Assessment /Plan Problems (1) Metabolic encephalopathy Status: Acute Problem Text: * pt has waxing and waning mentation * unknown how long he had this change in mentation * MRI was negative for any acute finding * per friend pt has been confused on and off since September * will need roasterman placement * subject was brought up and pt was not happy about but stated he will do what he needs to do (2) Altered mental status Status: Acute Problem Text: * after nursing staff and pfs spoke with friend, pt appears to have been confused since September * unknown etiology, he has been using space heater in his trailer * pt will likely need roasterman placement * will change to alternative level of care * will speak with psych for capacity workup (3) ETOH abuse Status: Chronic Response to Treatment: Stable Problem Text: * continue serax, thiamine, folate, and MVI * will titrate serax (4) Diabetes Status: Chronic Response to Treatment: Stable Problem Text: * insulin sliding scale with accu checks * consistent carb diet (5) Thrombocytopenia Status: Chronic Response to Treatment: Improving Problem Text: * likely secondary to alcohol abuse * will hold lovenox Plan/VTE VTE Prophylaxis Ordered?: Yes VS, I&O, 24H, Fishbone Vital Signs/I&O Vital Signs Date Time Temp Pulse Resp B/P Pulse Ox O2 Delivery O2 Flow Rate FiO2 01/07/17 09:04 85 157/82 01/07/17 06:00 97.7 19 99 Room Air I&O- Last 24 Hours up to 6 AM 01/07/17 06:00 Intake Total 2160 ml Output Total 550 ml Balance 1610 ml Laboratory Data 24H LABS Laboratory Tests 2 01/06/17 16:47: Bedside Glucose (Misc Panel) 199H 01/06/17 20:20: Bedside Glucose (Misc Panel) 232H 01/07/17 05:57: Blood Urea Nitrogen 12, Creatinine 0.67L, Sodium Level 141, Potassium Level 4.1 , Chloride Level 105, Carbon Dioxide Level 27, Calcium Level 8.7L, Aspartate Amino Transf (AST/SGOT) 27, Alanine Aminotransferase (ALT/SGPT) 27, Alkaline Phosphatase 95, Total Bilirubin 0.9, Total Protein 6.5, Albumin 3.2, Albumin/ Globulin Ratio 0.97L, Ammonia 31, Anion Gap 9, Glomerular Filtration Rate > 60.0 01/07/17 11:31: Bedside Glucose (Misc Panel) 170H CBC/BMP Laboratory Tests 01/07/17 05:57 Calcium Level 8.7 L, Aspartate Amino Transf (AST/SGOT) 27, Alanine Aminotransferase (ALT/SGPT) 27, Alkaline Phosphatase 95, Total Bilirubin 0.9, Total Protein 6.5, Albumin 3.2 01/07/17 05:58 Red Blood Count 4.17 L, Mean Corpuscular Volume 94.7, Mean Corpuscular Hemoglobin 32.6, Mean Corpuscular Hemoglobin Concent 34.5, Red Cell Distribution Width 12.7 Microbiology Microbiology 01/04/17 Blood Culture - Preliminary, Resulted No Growth after 72 hours. All specime... 01/04/17 Gastrointestinal Tract Panel (PCR) - Final, Complete Enteropathogenic E.coli 01/04/17 Respiratory Virus Panel (PCR) ([facility]) - Final, Complete JABARI SHEPHERD DO Jan 07, 2017 13:40
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
[2017-01-08 05:43] LABS: MEAN CORPUSCULAR HEMOGLOBIN 32.8 pg (27.0-33.0); MEAN CORPUSCULAR HGB CONC 34.1 g/dl (32.0-36.5); MEAN CORPUSCULAR VOLUME 96.1 fl (80.0-96.0); RED CELL DISTRIBUTION WIDTH 12.9 % (11.5-14.5); WHITE BLOOD COUNT 4.8 K/mm3 (4.0-10.0)
[2017-01-08 05:47] LABS: ALBUMIN 3.2 GM/DL (3.2-5.2); ALBUMIN/GLOBULIN RATIO 1.03 (1.00-1.93); ALKALINE PHOSPHATASE 96 U/L (45-117); ALT/SGPT 27 U/L (12-78); ANION GAP 10 MEQ/L (8-16); AST/SGOT 27 U/L (15-37); BILIRUBIN,TOTAL 0.9 MG/DL (0.2-1.0); BLOOD UREA NITROGEN 10 MG/DL (7-18); CALCIUM LEVEL 8.6 MG/DL (8.8-10.2); CARBON DIOXIDE LEVEL 25 MEQ/L (21-32); CHLORIDE LEVEL 106 MEQ/L (98-107); CREATININE FOR GFR 0.68 MG/DL (0.70-1.30); GLOMERULAR FILTRATION RATE > 60.0 (>49); GLUCOSE, FASTING 204 MG/DL (80-110); POTASSIUM SERUM 4.1 MEQ/L (3.5-5.1); SODIUM LEVEL 141 MEQ/L (136-145); TOTAL PROTEIN 6.3 GM/DL (6.4-8.2)
[2017-01-08 06:00] VITALS: BP 144/80
[2017-01-08] MEDS: ACETAMINOPHEN TAB 650MG DOSE (2X325MG) PO PRN ×2 (08:06→21:02)
[2017-01-08] MEDS: HumaLOG INSULIN (NovoLOG) PER UNIT SC SCH ×4 (08:06→21:40)
[2017-01-08] MEDS: THIAMINE 100 MG TAB PO SCH (08:06)
[2017-01-08] MEDS: MULTIVITAMINS/MINERALS THERAP 1 TAB PO SCH (08:07)
[2017-01-08] MEDS: METOPROLOL TART 25 MG TABLET PO SCH (08:07)
[2017-01-08] MEDS: FOLIC ACID 1 MG TAB PO SCH (08:07)
[2017-01-08] MEDS: OXAZEPAM 10 MG CAP PO SCH ×2 (08:07→21:01)
[2017-01-09] MEDS: ONDANSETRON 4 MG ORAL DISINTEGRATING TAB (S0181) PO PRN (05:38)
[2017-01-09] MEDS: ACETAMINOPHEN TAB 650MG DOSE (2X325MG) PO PRN ×2 (05:38→19:42)
[2017-01-09 06:00] VITALS: BP 168/84
[2017-01-09 06:12] LABS: MEAN CORPUSCULAR HEMOGLOBIN 33.6 pg (27.0-33.0); MEAN CORPUSCULAR HGB CONC 35.3 g/dl (32.0-36.5); MEAN CORPUSCULAR VOLUME 95.1 fl (80.0-96.0); WHITE BLOOD COUNT 4.5 K/mm3 (4.0-10.0)
[2017-01-09 06:23] LABS: ALBUMIN 3.3 GM/DL (3.2-5.2); ALBUMIN/GLOBULIN RATIO 1.03 (1.00-1.93); ALKALINE PHOSPHATASE 87 U/L (45-117); ALT/SGPT 26 U/L (12-78); ANION GAP 9 MEQ/L (8-16); AST/SGOT 27 U/L (15-37); BLOOD UREA NITROGEN 11 MG/DL (7-18); CALCIUM LEVEL 8.5 MG/DL (8.8-10.2); CARBON DIOXIDE LEVEL 26 MEQ/L (21-32); CHLORIDE LEVEL 106 MEQ/L (98-107); CREATININE FOR GFR 0.69 MG/DL (0.70-1.30); GLOMERULAR FILTRATION RATE > 60.0 (>49); GLUCOSE, FASTING 182 MG/DL (80-110); POTASSIUM SERUM 3.9 MEQ/L (3.5-5.1); SODIUM LEVEL 141 MEQ/L (136-145); TOTAL PROTEIN 6.5 GM/DL (6.4-8.2)
[2017-01-09] MEDS: MULTIVITAMINS/MINERALS THERAP 1 TAB PO SCH (08:12)
[2017-01-09] MEDS: METOPROLOL TART 25 MG TABLET PO SCH (08:12)
[2017-01-09] MEDS: HumaLOG INSULIN (NovoLOG) PER UNIT SC SCH ×4 (08:12→20:04)
[2017-01-09] MEDS: FOLIC ACID 1 MG TAB PO SCH (08:13)
[2017-01-09] MEDS: THIAMINE 100 MG TAB PO SCH (08:13)
[2017-01-09] MEDS: OXAZEPAM 10 MG CAP PO SCH ×2 (08:13→20:04)
[2017-01-10 06:00] VITALS: BP 144/86
[2017-01-10 06:18] LABS: MEAN CORPUSCULAR HEMOGLOBIN 33.2 pg (27.0-33.0); MEAN CORPUSCULAR HGB CONC 34.8 g/dl (32.0-36.5); MEAN CORPUSCULAR VOLUME 95.4 fl (80.0-96.0); RED CELL DISTRIBUTION WIDTH 12.9 % (11.5-14.5); WHITE BLOOD COUNT 3.7 K/mm3 (4.0-10.0)
[2017-01-10 06:36] LABS: ALBUMIN 3.2 GM/DL (3.2-5.2); ALBUMIN/GLOBULIN RATIO 0.97 (1.00-1.93); ALKALINE PHOSPHATASE 81 U/L (45-117); ALT/SGPT 27 U/L (12-78); ANION GAP 10 MEQ/L (8-16); AST/SGOT 29 U/L (15-37); BLOOD UREA NITROGEN 10 MG/DL (7-18); CALCIUM LEVEL 8.6 MG/DL (8.8-10.2); CARBON DIOXIDE LEVEL 27 MEQ/L (21-32); CHLORIDE LEVEL 106 MEQ/L (98-107); CREATININE FOR GFR 0.64 MG/DL (0.70-1.30); GLOMERULAR FILTRATION RATE > 60.0 (>49); GLUCOSE, FASTING 182 MG/DL (80-110); POTASSIUM SERUM 3.9 MEQ/L (3.5-5.1); SODIUM LEVEL 143 MEQ/L (136-145); TOTAL PROTEIN 6.5 GM/DL (6.4-8.2)
[2017-01-10] MEDS: METOPROLOL TART 25 MG TABLET PO SCH (08:01)
[2017-01-10] MEDS: THIAMINE 100 MG TAB PO SCH (08:01)
[2017-01-10] MEDS: HumaLOG INSULIN (NovoLOG) PER UNIT SC SCH ×4 (08:01→20:29)
[2017-01-10] MEDS: OXAZEPAM 10 MG CAP PO SCH ×2 (08:02→20:32)
[2017-01-10] MEDS: FOLIC ACID 1 MG TAB PO SCH (08:02)
[2017-01-10] MEDS: MULTIVITAMINS/MINERALS THERAP 1 TAB PO SCH (08:02)
[2017-01-10] MEDS: ACETAMINOPHEN TAB 650MG DOSE (2X325MG) PO PRN ×2 (17:40→22:41)
[2017-01-11 06:00] VITALS: BP 112/78
[2017-01-11] MEDS: THIAMINE 100 MG TAB PO SCH (08:23)
[2017-01-11] MEDS: OXAZEPAM 10 MG CAP PO SCH ×2 (08:23→21:41)
[2017-01-11] MEDS: HumaLOG INSULIN (NovoLOG) PER UNIT SC SCH ×4 (08:23→21:42)
[2017-01-11] MEDS: MULTIVITAMINS/MINERALS THERAP 1 TAB PO SCH (08:24)
[2017-01-11] MEDS: FOLIC ACID 1 MG TAB PO SCH (08:24)
[2017-01-11] MEDS: METOPROLOL TART 25 MG TABLET PO SCH (08:26)
[2017-01-11] MEDS: ACETAMINOPHEN TAB 650MG DOSE (2X325MG) PO PRN ×2 (10:36→16:06)
[2017-01-12 06:00] VITALS: BP 139/86
[2017-01-12] MEDS: OXAZEPAM 10 MG CAP PO SCH ×2 (07:58→20:34)
[2017-01-12] MEDS: ACETAMINOPHEN TAB 650MG DOSE (2X325MG) PO PRN ×4 (07:58→21:29)
[2017-01-12] MEDS: FOLIC ACID 1 MG TAB PO SCH (07:58)
[2017-01-12] MEDS: HumaLOG INSULIN (NovoLOG) PER UNIT SC SCH ×4 (07:58→20:35)
[2017-01-12] MEDS: METOPROLOL TART 25 MG TABLET PO SCH (07:59)
[2017-01-12] MEDS: MULTIVITAMINS/MINERALS THERAP 1 TAB PO SCH (07:59)
[2017-01-12] MEDS: THIAMINE 100 MG TAB PO SCH (07:59)
[2017-01-13] MEDS: ACETAMINOPHEN TAB 650MG DOSE (2X325MG) PO PRN ×3 (05:47→16:02)
[2017-01-13 06:00] VITALS: BP 137/69
[2017-01-13] MEDS: MULTIVITAMINS/MINERALS THERAP 1 TAB PO SCH (09:36)
[2017-01-13] MEDS: THIAMINE 100 MG TAB PO SCH (09:36)
[2017-01-13] MEDS: HumaLOG INSULIN (NovoLOG) PER UNIT SC SCH ×4 (09:36→20:27)
[2017-01-13] MEDS: OXAZEPAM 10 MG CAP PO SCH ×2 (09:36→20:24)
[2017-01-13] MEDS: METOPROLOL TART 25 MG TABLET PO SCH (09:36)
[2017-01-13] MEDS: FOLIC ACID 1 MG TAB PO SCH (09:36)
[2017-01-14 06:00] VITALS: BP 124/78
[2017-01-14] MEDS: ONDANSETRON 4 MG ORAL DISINTEGRATING TAB (S0181) PO PRN ×2 (07:46→14:09)
[2017-01-14] MEDS: ACETAMINOPHEN TAB 650MG DOSE (2X325MG) PO PRN ×3 (07:51→17:01)
[2017-01-14] MEDS: MULTIVITAMINS/MINERALS THERAP 1 TAB PO SCH (08:19)
[2017-01-14] MEDS: OXAZEPAM 10 MG CAP PO SCH (08:19)
[2017-01-14] MEDS: THIAMINE 100 MG TAB PO SCH (08:19)
[2017-01-14] MEDS: FOLIC ACID 1 MG TAB PO SCH (08:19)
[2017-01-14] MEDS: METOPROLOL TART 25 MG TABLET PO SCH (08:20)
[2017-01-14] MEDS: HumaLOG INSULIN (NovoLOG) PER UNIT SC SCH ×4 (08:21→20:46)
[2017-01-14] MEDS ORDERED: TUBERCULIN PPD 5 UNITS/0.1 ML ID ONE (12:00)
[2017-01-14 22:00] VITALS: BP 137/76
[2017-01-15] MEDS: ONDANSETRON 4 MG ORAL DISINTEGRATING TAB (S0181) PO PRN (05:09)
[2017-01-15 06:00] VITALS: BP 124/76
[2017-01-15] MEDS: ACETAMINOPHEN TAB 650MG DOSE (2X325MG) PO PRN ×3 (06:33→17:40)
[2017-01-15] MEDS ORDERED: HumaLOG INSULIN (NovoLOG) PER UNIT SC SCH ×2 (07:30→21:00)
[2017-01-15] MEDS: HumaLOG INSULIN (NovoLOG) PER UNIT SC SCH ×4 (08:03→20:36)
[2017-01-15 08:35] VITALS: BP 125/71
[2017-01-15] MEDS ORDERED: OXAZEPAM 10 MG CAP PO SCH (09:00)
[2017-01-15] MEDS: THIAMINE 100 MG TAB PO SCH (09:06)
[2017-01-15] MEDS: METOPROLOL TART 25 MG TABLET PO SCH (09:06)
[2017-01-15] MEDS: FOLIC ACID 1 MG TAB PO SCH (09:06)
[2017-01-15] MEDS: MULTIVITAMINS/MINERALS THERAP 1 TAB PO SCH (09:06)
--- NOTE | 2017-01-15 13:39 | IPNPDOC ---
Text Note Date of Service The patient was seen on 01/15/17. NOTE Subjective: Denies any complaints; watching tv. Objective: Vitals: (see below) General: No acute distress, laying comfortably in bed. HEENT: Moist mucous membranes. Neck: No JVD or lymphadenopathy Cardiac: RRR, No murmurs Pulm: Clear to auscultation b/l. No wheezing, rhonchi Abd: NT/ND + BS Ext: No edema or cyanosis AAO3 Moving all extremities, following commands. Labs (see below) Images: MRI Brain 01/03/17 IMPRESSION: 1. Minimal small vessel ischemic disease. 2. Mild volume loss. Assessment/Plan 1. Metabolic encephalopathy - ? Baseline dementia- no capacity to make own decisions. MRI negative. Will need usp placement. 2. H/o alcohol abuse - psych consulted with recommendations for serax taper 3. DM - cont current meds 4. Chronic thrombocytopenia - no bleeding. Cont to monitor. DVT prophy: SCDs Dispo: Will need terminal make up operator placement. VS,Fishbone, I+O VS, Fishbone, I+O Vital Signs Date Time Temp Pulse Resp B/P Pulse Ox O2 Delivery O2 Flow Rate FiO2 01/15/17 09:06 82 125/71 01/15/17 08:35 97.2 18 99 Room Air I&O- Last 24 Hours up to 6 AM 01/15/17 06:00 Intake Total 960 ml Output Total 0 ml Balance 960 ml YONG READ MD Jan 15, 2017 13:39
[2017-01-15 13:52] VITALS: BP 139/74
[2017-01-15 14:17] LABS: MEAN CORPUSCULAR HEMOGLOBIN 32.6 pg (27.0-33.0); MEAN CORPUSCULAR HGB CONC 33.9 g/dl (32.0-36.5); MEAN CORPUSCULAR VOLUME 95.9 fl (80.0-96.0); RED CELL DISTRIBUTION WIDTH 12.6 % (11.5-14.5); WHITE BLOOD COUNT 6.7 K/mm3 (4.0-10.0)
[2017-01-15 14:51] LABS: ALBUMIN 3.7 GM/DL (3.2-5.2); ALKALINE PHOSPHATASE 95 U/L (45-117); ALT/SGPT 27 U/L (12-78); ANION GAP 7 MEQ/L (8-16); AST/SGOT 23 U/L (15-37); BILIRUBIN,TOTAL 0.5 MG/DL (0.2-1.0); BLOOD UREA NITROGEN 11 MG/DL (7-18); CALCIUM LEVEL 8.8 MG/DL (8.8-10.2); CARBON DIOXIDE LEVEL 29 MEQ/L (21-32); CHLORIDE LEVEL 102 MEQ/L (98-107); CREATININE FOR GFR 0.97 MG/DL (0.70-1.30); GLOMERULAR FILTRATION RATE > 60.0 (>49); GLUCOSE, FASTING 198 MG/DL (80-110); POTASSIUM SERUM 4.6 MEQ/L (3.5-5.1); SODIUM LEVEL 138 MEQ/L (136-145); TOTAL PROTEIN 7.8 GM/DL (6.4-8.2)
[2017-01-15] MEDS: OXAZEPAM 10 MG CAP PO SCH (20:35)
[2017-01-16] MEDS: ONDANSETRON 4 MG ORAL DISINTEGRATING TAB (S0181) PO PRN ×2 (03:56→20:53)
[2017-01-16] MEDS: ACETAMINOPHEN TAB 650MG DOSE (2X325MG) PO PRN ×5 (04:37→23:12)
[2017-01-16 06:00] VITALS: BP 149/89
[2017-01-16] MEDS: THIAMINE 100 MG TAB PO SCH (08:42)
[2017-01-16] MEDS: FOLIC ACID 1 MG TAB PO SCH (08:42)
[2017-01-16] MEDS: HumaLOG INSULIN (NovoLOG) PER UNIT SC SCH ×4 (08:42→20:52)
[2017-01-16] MEDS: MULTIVITAMINS/MINERALS THERAP 1 TAB PO SCH (08:42)
[2017-01-16] MEDS: OXAZEPAM 10 MG CAP PO SCH ×2 (08:42→23:11)
[2017-01-16] MEDS: METOPROLOL TART 25 MG TABLET PO SCH (08:44)
[2017-01-16] MEDS ORDERED: PPD DOCUMENTATION ENTRY MISC XX SCH (10:00)
[2017-01-16] MEDS ORDERED: HALOPERIDOL 2 MG TAB PO PRN (15:15)
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
--- NOTE | 2017-01-16 19:20 | CR.PDOC ---
[facility] Consultation Consultation DATE OF CONSULTATION: 01/16/17 CONSULTATION REQUESTED BY: Hospitalist REASON FOR CONSULTATION: increased agitation, HI, towards no identifiable target ]. Please see relevant history/labs documented in Dr. Barbour psychiatry consultation note dated 01/07/17. Subjective: Patient calm and cooperative with interview. He is A&Ox3. TP is linear and goal directed. Patient is pleasant and engages the interview. Patient reports no recollection of his homicidal statement. Patient reports ongoing alcohol w/d symptoms including anxiety, feeling tense, [place], poor sleep, and irritability. Patient denies hx of prior MH diagnosis. He denies outpt and inpatient psychiatric contact. Patient stated, he must have made the comment in anger. Patient denies fever, chills, and abd pain. He reports fair appetite. He reports no med s/e's on his current regimen, including the Serax taper currently at 10mg po BID. Patient denies hx of violence. He reports no hx of domestic violence and denies arrests for assault/domestic violence. Patient denies SI/HI. Patient denies depressive symptoms. He has expressed no bizarre or paranoid ideations on my exam. No signs of psychosis reported nor were any observed during this interview. Patient reports at home, his takes care of the cleaning, cooking, laundry, as well as grocery shopping and most of the bills. Patient reports recognizing a significant drop in short term memory. He does not attempt MMSE memory questions. He does report paying some bills in the home. He did well on calculation compenent of MMSE. Patient can not name his meds and is unable to give the indications for nor the scheduled administration times for his meds. Patient reports drinking 10-12 24oz beers daily. He denies hx of alcohol DTs and he denies hx of alcohol w/d seizure. Objective: MENTAL STATUS EXAMINATION: Patient is a [66]-year old male, who is [pleasant, cooperative, well kempt], [ thin, elderly]. Speech is [normal in rate, volume, and articulation, and is coherent and spontaneous]. Language skills are [intact]. Thought processes including: [clear,Goal directed]. Thought content: [rational,appropriate]. Description of abnormal or psychotic thoughts: [No hallucinations, delusions, preoccupation with violence, homicidal or suicidal ideation, and obsessions]. Judgment: [limited]. Insight: [limited]. Orientation to [time, place and person]. Recent and remote memory: [Immediate intact, short-term and long-term memory are significantly diminished. Attention span and concentration: [fair]. Language: [Normal]. Fund of knowledge: [adequate]. Mood:anxious. Affect:anxious Assessment: 1. Ongoing Alcohol w/d, significant agitation 2. Alcohol use d/o, severe 3. Anxiety d/o, unspecified 4. Alcohol induced Neurocognitive d/o Recommendations: 1. [Continue Serax taper at current dose of 10mg po BID for significant aniety / agitation associated with Alcohol w/d.]. 2. Discontinue Haldol as first generation antipsychotics are associated with increased risk of arrhythmia in the elderly. 3. Start Seroquel 50mg po TID PRN agitation/insomnia. 4. Recommend initiation of an antidepressant for anxiety. Consider Zoloft 50mg po qam for anxiety/depressed mood. 5. [Continue Vitamins for hypovitaminosis(B1) associated with alcohol use d/o. 6. Patient psychiatrically stable and can discharge to home from the medical floor. 7. Recomend referral to [facility] for initial mental health provider appt within 1 week of discharge. TIME SPENT : 40 minutes Vital Signs Vital Signs Date Time Temp Pulse Resp B/P Pulse Ox O2 Delivery O2 Flow Rate FiO2 01/16/17 08:44 82 136/81 01/16/17 06:00 97.2 18 94 Room Air Laboratory Data 24H Labs Laboratory Tests 2 01/15/17 20:20: Bedside Glucose (Misc Panel) 311H 01/16/17 05:58: Bedside Glucose (Misc Panel) 202H 01/16/17 12:32: Bedside Glucose (Misc Panel) 183H 01/16/17 17:08: Bedside Glucose (Misc Panel) 228H Home Medications Current Medications Current Medications Acetaminophen (Tylenol Tab) 650 mg Q4HP PRN PO MILD PAIN OR FEVER Last administered on 01/16/17t 17:18; Start 01/03/17 at 21:00; Stop 02/02/17 at 20:59 Dextrose (Dextrose 50%) 25 ml ASDIRECTED PRN IV SEE LABEL COMMENTS; Start 01/03 at 21:00; Stop 01/05/17 at 17:45; Status DC Enoxaparin Sodium (Lovenox) 40 mg DAILY SC Last administered on 01/04/17 09:56 ; Start 01/04/17 at 09:00; Stop 01/05/17 at 12:15; Status DC Folic Acid (Folic Acid) 1 mg DAILY PO Last administered on 01/16/17 08:42; Start 01/04/17 at 09:00; Stop 02/03/17 at 08:59 Glucagon (Glucagon) 1 mg ASDIRECTED PRN SC SEE LABEL COMMENTS; Start 01/03/17 at 21:00; Stop 02/02/17 at 20:59 Glucose (Glucose) 16 GM ASDIRECTED PRN PO SEE LABEL COMMENTS; Start 01/03/17 at 21:00; Stop 02/02/17 at 20:59 Haloperidol (Haldol) 2 mg Q4HP PRN PO AGITATION Last administered on 01/16/17 16:37; Start 01/16/17 at 15:15; Stop 02/15/17 at 15:14 Home Med ASDIRECTED XX ; Start 01/03/17 at 19:30; Stop 01/03/17 at 21:23; Status DC Insulin Human Lispro (HumaLOG INSULIN) SEE PROTOCOL TABLE AC SC Last administered on 01/16/17 17:18; Start 01/04/17 at 07:30; Stop 02/03/17 at 07:29 Insulin Human Lispro (HumaLOG INSULIN) SEE PROTOCOL TABLE AC SC ; Start at 07:30; Stop 01/15/17 at 07:30; Status DC Insulin Human Lispro (HumaLOG INSULIN) SEE PROTOCOL TABLE QHS SC Last administered on 01/15/17 20:36; Start 01/03/17 at 21:00; Stop 02/02/17 at 20:59 Insulin Human Lispro (HumaLOG INSULIN) SEE PROTOCOL TABLE QHS SC ; Start at 21:00; Stop 01/15/17 at 21:00; Status DC Metoprolol Tartrate (Lopressor) 25 mg DAILY PO Last administered on 01/16/17 08:44; Start 01/05/17 at 09:00; Stop 02/04/17 at 08:59 Miscellaneous (Unresolved Clarification Entry) SEE LABEL COMMENTS UNRESOLVED XX Last administered on 01/15/17 10:04; Start 01/15/17 at 00:01; Stop 01/15/17 at 10:07; Status DC Multivitamins (Theragram-M) 1 tab DAILY PO Last administered on 01/16/17 08:42 ; Start 01/04/17 at 09:00; Stop 02/03/17 at 08:59 Non-Formulary Medication ( See Comment Field Below ) SEE COMMENTS SECTION 1T @10 XX Last administered on 01/16/17 10:00; Start 01/16/17 at 10:00; Stop at 09:59 Ondansetron HCl (ZOFRAN INJection) 4 mg Q6HP PRN IV NAUSEA OR VOMITING; Start 01/03/17 at 21:00; Stop 01/05/17 at 17:45; Status DC Ondansetron HCl (Zofran Odt) 4 mg Q6HP PRN PO NAUSEA OR VOMITING Last administered on 01/16/17 03:56; Start 01/05/17 at 17:45; Stop 02/04/17 at 17:44 Oxazepam (Serax) 10 mg BID PO Last administered on 01/14/17 08:19; Start 01/07 at 21:00; Stop 01/14/17 at 20:59; Status DC Oxazepam (Serax) 10 mg BID PO Last administered on 01/16/17 08:42; Start 01/15 at 21:00; Stop 01/17/17 at 09:01 Oxazepam (Serax) 10 mg DAILY PO Last administered on 01/15/17 10:47; Start at 09:00; Stop 01/15/17 at 13:31; Status DC Oxazepam (Serax) 10 mg Q8H PO Last administered on 01/07/17 13:05; Start 01/04 at 14:00; Stop 01/07/17 at 13:52; Status DC Sodium Chloride (Nacl 0.9%) 1,000 ml @ 75 mls/hr [id number] IV Last administered on 01/03/17 23:22; Start 01/03/17 at 22:30; Stop 01/04/17 at 11:49; Status DC Thiamine HCl (Thiamine HCl) 100 mg DAILY PO Last administered on 01/16/17t 08: 42; Start 01/04/17 at 09:00; Stop 02/03/17 at 08:59 Scheduled Glimepiride (Glimepiride) Unknown Strength Tab Unknown Dose PO BID (Reported) SEE COMMENTS Metformin Hydrochloride (Glucophage) Unknown Strength Tab Unknown Dose PO BID ( Reported) Allergies Coded Allergies: No Known Drug Allergy (Verified Allergy, Unknown, 11/17/16) PER ED VISIT IN 2005 NINA WHITMAN MD Jan 16, 2017 19:20 NINA WHITMAN MD Jan 16, 2017 19:20
[2017-01-17] MEDS: ONDANSETRON 4 MG ORAL DISINTEGRATING TAB (S0181) PO PRN (05:10)
[2017-01-17] MEDS: ACETAMINOPHEN TAB 650MG DOSE (2X325MG) PO PRN ×5 (05:11→21:16)
[2017-01-17] MEDS ORDERED: QUEtiapine FUMARATE 50 MG TAB PO PRN (08:45)
[2017-01-17] MEDS: MULTIVITAMINS/MINERALS THERAP 1 TAB PO SCH (09:38)
[2017-01-17] MEDS: THIAMINE 100 MG TAB PO SCH (09:38)
[2017-01-17] MEDS: OXAZEPAM 10 MG CAP PO SCH (09:39)
[2017-01-17] MEDS: METOPROLOL TART 25 MG TABLET PO SCH (09:40)
[2017-01-17] MEDS: HumaLOG INSULIN (NovoLOG) PER UNIT SC SCH ×4 (09:43→20:28)
[2017-01-17] MEDS: FOLIC ACID 1 MG TAB PO SCH (09:43)
[2017-01-17 14:00] VITALS: BP 149/68
[2017-01-17] MEDS: SERTRALINE HCL 50 MG TAB PO SCH (20:27)
[2017-01-18] MEDS: ONDANSETRON 4 MG ORAL DISINTEGRATING TAB (S0181) PO PRN (05:26)
[2017-01-18 06:00] VITALS: BP 159/95
[2017-01-18] MEDS: FOLIC ACID 1 MG TAB PO SCH (09:36)
[2017-01-18] MEDS: THIAMINE 100 MG TAB PO SCH (09:36)
[2017-01-18] MEDS: MULTIVITAMINS/MINERALS THERAP 1 TAB PO SCH (09:37)
[2017-01-18] MEDS: ACETAMINOPHEN TAB 650MG DOSE (2X325MG) PO PRN ×2 (09:37→20:30)
[2017-01-18] MEDS: METOPROLOL TART 25 MG TABLET PO SCH (09:37)
[2017-01-18] MEDS: HumaLOG INSULIN (NovoLOG) PER UNIT SC SCH ×4 (09:39→20:19)
[2017-01-18] MEDS ORDERED: FOLI1TAB2 PO (10:40)
[2017-01-18] MEDS ORDERED: THIA100TA PO (10:40)
[2017-01-18] MEDS ORDERED: METO25TAB PO (10:40)
[2017-01-18] MEDS ORDERED: Sertraline Hcl PO (10:40)
[2017-01-18] MEDS ORDERED: VITMTA PO (10:40)
[2017-01-18] MEDS ORDERED: KETOROLAC 30 MG/ML VIAL (J1885) IV ONE (12:00)
[2017-01-18] MEDS: IBUPROFEN 800 MG TAB PO PRN (12:31)
[2017-01-18] MEDS ORDERED: GLIM2TAB PO (12:45)
[2017-01-18] MEDS ORDERED: METF1000 PO (12:45)
[2017-01-18] MEDS: SERTRALINE HCL 50 MG TAB PO SCH (20:30)
[2017-01-19 06:00] VITALS: BP 136/89
[2017-01-19] MEDS: ACETAMINOPHEN TAB 650MG DOSE (2X325MG) PO PRN (06:21)
[2017-01-19] MEDS: THIAMINE 100 MG TAB PO SCH (08:26)
[2017-01-19] MEDS: FOLIC ACID 1 MG TAB PO SCH (08:26)
[2017-01-19] MEDS: MULTIVITAMINS/MINERALS THERAP 1 TAB PO SCH (08:26)
[2017-01-19] MEDS: HumaLOG INSULIN (NovoLOG) PER UNIT SC SCH (08:26)
[2017-01-19 08:27] VITALS: BP 160/88
[2017-01-19] MEDS: METOPROLOL TART 25 MG TABLET PO SCH (08:27)
[2017-01-19] MEDS: IBUPROFEN 800 MG TAB PO PRN (08:30)
--- NOTE | 2017-01-19 20:01 | DSES ---
DATE OF ADMISSION: 01/05/2017 DATE OF DISCHARGE: 01/19/2017 CONSULTANTS: Psychiatrists, Dr. Cedillo and Dr. Barbour. ADMISSION/DISCHARGE DIAGNOSES: 1. Minimal small vessel ischemic disease. 2. Metabolic encephalopathy. 3. History of alcohol abuse. 4. Diabetes. 5. Chronic thrombocytopenia. HOSPITALIZATION COURSE: The patient is a 66-year-old male who presented to [facility] on 01/05/2017, for altered mental status change. Brain imaging study was performed which came back negative. The patient was admitted to the medical/surgical floor. The patient was started on gentle hydration and MRA was ordered. Later MRA came back showing result with minimal small vessel ischemic disease and minimal volume loss. After obtaining further information from the patient's friend, the patient has been having prolonged confusion since September of 2016, and psychiatrist is consulted for psychiatric evaluation and capacity workup. On 01/07/2017, the patient was seen by psychiatrist, Dr. Barbour, and it is determined that the patient has severe memory deficit and unable to take care of himself. The patient is not competent to make decisions for himself. Social service has been involved to seek options for placement. The patient's hospitalization course was complicated by the patient's homicidal ideation with a butter knife found under the pillow on 01/16/2017. After the incident, another psychiatric consult was placed and the patient was seen by Dr. Cedillo. Per psychiatrist's report, the patient did not have any recollection of his homicidal statement. Per psychiatrist recommendation, the patient was started on Seroquel for agitation and insomnia, and the patient was determined psychiatrically stable for discharge on 01/16/2017. Due to the difficulty obtaining placement, the patient was placed on the alternate level of care (ALC) status. On 01/19/2017, the patient has a room assignment to the nursing facility, and the patient is discharged from the hospital. OBJECTIVE: VITAL SIGNS: Temperature is 98, pulse is 86, respirations 17, blood pressure is 136/89, pulse oximetry 99% on room air. LABORATORY DATA: WBC is 6.7, hemoglobin 13.9, hematocrit 40.9, and platelet count 125. Sodium 138, potassium 4.6, chloride 102, carbon dioxide 29, BUN 11, creatinine 0.97, GFR greater than 60, fasting glucose 198, calcium 8.8. Total bilirubin is 0.5, AST 23, ALT 27, alkaline phosphatase 95. Total protein is 7.8, albumin 3.7. Urine toxicology is negative. Alcohol level is normal. Urinalysis is negative. Hepatitis panel is negative. MICROBIOLOGY: Blood cultures negative after five days. Respiratory panel is negative. GI panel is positive for enteropathogenic E. Coli. IMAGING: CT of the head without contrast showed age-related atrophy and microvascular ischemic changes. No acute intracranial hemorrhage, infarction or mass or mass effect. MRI of the brain without contrast, followed by with contrast, showed minimal small vessel ischemic disease, minimal volume loss. Chest x-ray shows essentially negative stable chest. DISCHARGE MEDICATIONS: - folic acid 1 mg by mouth daily - glimepiride 2 mg by mouth daily - metformin 1000 mg by mouth twice a day - metoprolol tartrate 25 mg by mouth daily - multivitamin one tablet by mouth daily - thiamine 100 mg by mouth daily - Zoloft 50 mg by mouth at bedtime DISCHARGE INSTRUCTIONS: Discontinue lines. Discharge to [facility]. Consistent carbohydrate diet as tolerated. Activity as tolerated. The patient should follow with primary care provider within one week. It will be beneficial for the patient to establish with a psychiatrist outpatient too. DISCHARGE CONDITION: Stable. DISCHARGE TIME: Greater than 30 minutes.
== END 2017-01-19 09:50 | disposition home or self-care (01) | DRG 57 ==
LOC: M ED 15:01 → INTOOBSV 20:54 → M ED INP 20:54 → M MSPAV 22:17 → OBSVTOIN 01-05 14:44 → M MSPAV 01-16 16:07
PROVIDERS: ADMIT Internal Medicine; ATTEND Internal Medicine
DX: G31.2 Degeneration of nervous system due to alcohol (principal); E11.9 Type 2 diabetes mellitus without complications; D69.6 Thrombocytopenia, unspecified; Z79.899 Other long term (current) drug therapy; F10.229 Alcohol dependence with intoxication, unspecified; F02.80 Dementia in other diseases classified elsewhere, unspecified severity, without behavioral disturbance, psychotic disturbance, mood disturbance, and anxiety; R45.850 Homicidal ideations